=== PATIENT | female | born 1955 | race Caucasian/White ===

== ENCOUNTER 2016-12-28 05:45 | Inpatient (IN) | payer MEDICARE ==
[2016-12-28] MEDS ORDERED: SODIUM CHLORIDE 0.9% 1,000 ML IV STA ×3 (06:38→08:05)
[2016-12-28] MEDS ORDERED: IOHEXOL 350 MG/ML 25 ML BOTTLE (ORAL USE) PO PRN (06:38)
[2016-12-28] MEDS ORDERED: ONDANSETRON 4 MG/2 ML VIAL IVP STA (06:38)
[2016-12-28] MEDS ORDERED: RX INFO: IV CONTRAST WAS GIVEN 1 EACH MISC MISCELLANE PRN ×2 (06:38→07:59)
[2016-12-28] MEDS ORDERED: PANTOPRAZOLE 40 MG/10 ML VIAL IVP STA (06:38)
[2016-12-28] MEDS ORDERED: HYDROmorphone 1 MG/ML 1 ML SYRINGE IVP STA ×2 (06:38→11:33)
--- NOTE | 2016-12-28 06:42 | ED ---
Abdominal Pain HPI - General Source: patient, EMS Mode of arrival: EMS Limitations: no limitations <Alicia Beckman - Last Filed: 12/28/16 07:09> <Darrick Lewis - Last Filed: 12/28/16 09:52> - General Chief Complaint: Abdominal Pain Stated Complaint: Abdominal Pain/Vomiting Time Seen by Provider: 12/28/16 05:54 - History of Present Illness Initial Comments: Planing about the upper abdominal pain, this pain is starts in the right upper quadrant area goes to the epigastric and then the other side this is affecting the upper half of the abdomen is ago worse since one day now she has abdominal pain ongoing for about 3 years now had a fever had chills she been throwing up and had a hard time keeping anything down. She has a history of metastatic breast cancer she is on chemo right now. Denies any chest pain , c/o shortness of breath (Alicia Beckman) - Related Data Home Medications Medication Instructions Recorded Confirmed Diltiazem HCl [Cardizem Cd] 120 mg PO DAILY 03/25/15 12/28/16 Sertraline HCl [Zoloft] 100 mg PO DAILY 03/25/15 12/28/16 valACYclovir [Valtrex] 1 tab PO DAILY 03/25/15 12/28/16 Letrozole [Femara] 2.5 mg PO DAILY 12/28/16 12/28/16 Meloxicam [Mobic] 15 mg PO DAILY 12/28/16 12/28/16 Palbociclib [Ibrance] 100 mg PO DAILY 12/28/16 12/28/16 Simvastatin [Zocor] 10 mg PO HS 12/28/16 12/28/16 oxyCODONE HCL 10 mg PO Q6HR PRN 12/28/16 12/28/16 Allergies Allergy/AdvReac Type Severity Reaction Status Date / Time latex Allergy Rash/Hives Verified 12/28/16 07:50 Sulfa (Sulfonamide Allergy Rash/Hives Verified 12/28/16 07:50 Antibiotics) Review of Systems ROS Other: All systems not noted in ROS Statement are negative. <Alicia Beckman - Last Filed: 12/28/16 07:09> ROS Other: All systems not noted in ROS Statement are negative. <Darrick Lewis - Last Filed: 12/28/16 09:52> ROS Statement: Those systems with pertinent positive or pertinent negative responses have been documented in the HPI. 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 History of Any Multi-Drug Resistant Organisms: None Reported Past Surgical History: Orthopedic Surgery Additional Past Surgical History / Comment(s): gail placed left femur Past Psychological History: No Psychological Hx Reported Smoking Status: Former smoker Past Alcohol Use History: Rare Past Drug Use History: None Reported <Alicia Beckman - Last Filed: 12/28/16 07:09> General Exam Limitations: no limitations <Alicia Beckman - Last Filed: 12/28/16 07:09> <Darrick Lewis - Last Filed: 12/28/16 09:52> - General Exam Comments Initial Comments: General: The patient is awake and alert, in no distress, and does not appear acutely ill. Skin: Skin is warm and dry and no rashes or lesions are noted. Eye: Pupils are equal, round and reactive to light, extra-ocular movements are intact; there is normal conjunctiva bilaterally. Ears, nose, mouth and throat: There are moist mucous membranes and no oral lesions. Neck: The neck is supple, there is no tenderness or JVD. Cardiovascular: There is a regular rate and rhythm. No murmur, rub or gallop is appreciated. Respiratory: To auscultation bilateral, no wheezing no rhonchi no distress respiratory bain noticed Gastrointestinal: Tender in the right upper quadrant area, epigastric left upper quadrant areas well Back: There is no tenderness to palpation in the midline. There is no obvious deformity. Musculoskeletal: Normal ROM, no tenderness, There is no pedal edema. There is no calf tenderness or swelling. No cords were appreciated. Neurological: CN II-XII intact, Cranial nerves III through XII are intact. There are no obvious motor or sensory deficits. Coordination appears grossly intact. Speech is normal. Psychiatric: Cooperative, appropriate mood & affect, normal judgment. (Alicia Beckman) Course <Alicia Beckman - Last Filed: 12/28/16 07:09> <Darrick Lewis - Last Filed: 12/28/16 09:52> Vital Signs 06/08/17 06/08/17 06/08/17 05:47 07:21 08:47 Temperature 100.4 F H 99.9 F H Pulse Rate 109 H 131 H 126 H Respiratory 20 20 20 Rate Blood Pressure 163/67 145/67 110/64 O2 Sat by Pulse 99 96 96 Oximetry 12/28/16 12/28/16 09:27 09:48 Temperature 98 F Pulse Rate 117 H Respiratory 16 Rate Blood Pressure 94/55 O2 Sat by Pulse 94 L Oximetry - Reevaluation(s) Reevaluation #1: 12/28/16 08:36 Patient reevaluated by myself, Dr. Lewis. Patient resting comfortably in bed. Patient complains mostly of nausea at this time. Onset of symptoms was yesterday. Patient has had similar symptoms at least 5 or 6 times previously. Patient states abdominal discomfort was severe of the mid abdomen however now is mild. Nausea has improved. Patient states shortness of breath has always been mild. Patient states she has been evaluated for this several times and unable to come up with the diagnoses. Patient states her white blood cell count is normally low and 1.8 is normal for her. Patient is on 2 oral chemotherapy medications at this time. Patient does meet criteria for septic shock diagnosed at 8:36 AM. Fluid bolus has been ordered. Blood cultures and antibiotics has been ordered. Repeat lactic acid has been ordered. 12/28/16 08:38 EKG shows sinus tachycardia 119. MA 146. QRS 82. QT 436. QTc 486. Normal axis. Normal QRS. Normal ST-T. 12/28/16 09:45 Patient was updated on results and plan. Patient reevaluated. Case discussed in detail with Dr. Toledo, who will admit for hospital call. 12/28/16 09:51 Ultrasound gallbladder has been ordered. Dr. holloway and has been paged. Admission orders will be placed with additional consults. (Darrick Lewis) Procedures - Sepsis Sepsis Focused Exam #1 Time Sepsis Criteria Met: 08:36 Sepsis Focused Exam Date: 12/28/16 Sepsis Focused Exam Time: 08:36 Sepsis Focused Exam Complete: Yes Vital Signs & RN Notes Reviewed: Yes Capillary Refill: < 2 Seconds: Fingers, Toes Peripheral Pulses: Normal: Radial (R), Radial (L), Dorsalis Pedis (R), Dorsalis Pedis (L) Skin Color: Normal for Patient Respiratory Exam: normal lung sounds Cardiovascular Exam: tachycardia <Darrick Lewis - Last Filed: 12/28/16 09:52> Medical Decision Making - Lab Data Result diagrams: 12/28/16 06:00 12/28/16 06:00 - Radiology Data Radiology results: report reviewed (Computed tomography scan of the chest shows no pulmonary embolism. Patchy left basilar atelectasis or infiltrate. Computed tomography scan of the abdomen and pelvis shows hiatal hernia. Calcified density left breast. Had a hernia. Thickening of the gastric body. Dilation of the bile duct. May be wall thickening. No surrounding inflammation. Diffuse osteoblastic metastasis. Headache increased soft tissue density region of the kayleigh hepatis.), image reviewed (Chest x-ray shows left a slight atelectasis or infiltrate.) <Darrick Lewis - Last Filed: 12/28/16 09:52> - Lab Data Lab Results 12/28/16 12/28/16 12/28/16 Range/Units 06:00 06:00 06:00 WBC 1.2 L* (3.8-10.6) k/uL RBC 2.98 L (3.80-5.40) m/uL Hgb 11.0 L (11.4-16.0) gm/dL Hct 30.5 L (34.0-46.0) % MCV 102.2 H (80.0-100.0) fL MCH 37.0 H (25.0-35.0) pg MCHC 36.2 (31.0-37.0) g/dL RDW 15.2 (11.5-15.5) % Plt Count 155 (150-450) k/uL Neutrophils % 83 % Lymphocytes % 12 % Monocytes % 2 % Eosinophils % 1 % Basophils % 0 % Neutrophils # 1.0 L (1.3-7.7) k/uL Lymphocytes # 0.1 L (1.0-4.8) k/uL Monocytes # 0.0 (0-1.0) k/uL Eosinophils # 0.0 (0-0.7) k/uL Basophils # 0.0 (0-0.2) k/uL Hyperchromasia Slight Poikilocytosis Slight Macrocytosis Slight D-Dimer (<0.60) mg/L FEU Sodium 143 (137-145) mmol/L Potassium 4.0 (3.5-5.1) mmol/L Chloride 107 (98-107) mmol/L Carbon Dioxide 22 (22-30) mmol/L Anion Gap 14 mmol/L BUN 24 H (7-17) mg/dL Creatinine 1.38 H (0.52-1.04) mg/dL Est GFR (MDRD) Af Amer 47 (>60 ml/min/1.73 sqM) Est GFR (MDRD) Non-Af 39 (>60 ml/min/1.73 sqM) Glucose 193 H (74-99) mg/dL Plasma Lactic Acid Darvin 4.0 H* (0.7-2.0) mmol/L Calcium 9.4 (8.4-10.2) mg/dL Total Bilirubin 2.4 H (0.2-1.3) mg/dL AST 655 H (14-36) U/L ALT 369 H (9-52) U/L Alkaline Phosphatase 208 H (38-126) U/L Troponin I (0.000-0.034) ng/mL Total Protein 7.4 (6.3-8.2) g/dL Albumin 4.5 (3.5-5.0) g/dL Amylase 59 (30-110) U/L Lipase 86 (23-300) U/L Urine Color Urine Appearance (Clear) Urine pH (5.0-8.0) Ur Specific [place] (1.001-1.035) Urine Protein (Negative) Urine Glucose (UA) (Negative) Urine Ketones (Negative) Urine Blood (Negative) Urine Nitrite (Negative) Urine Bilirubin (Negative) Urine Urobilinogen (<2.0) mg/dL Ur Leukocyte Esterase (Negative) Urine RBC (0-5) /hpf Urine WBC (0-5) /hpf Ur Squamous Epith Cells (0-4) /hpf Urine Mucus (None) /hpf 12/28/16 12/28/16 12/28/16 Range/Units 06:00 06:00 06:07 WBC (3.8-10.6) k/uL RBC (3.80-5.40) m/uL Hgb (11.4-16.0) gm/dL Hct (34.0-46.0) % MCV (80.0-100.0) fL MCH (25.0-35.0) pg MCHC (31.0-37.0) g/dL RDW (11.5-15.5) % Plt Count (150-450) k/uL Neutrophils % % Lymphocytes % % Monocytes % % Eosinophils % % Basophils % % Neutrophils # (1.3-7.7) k/uL Lymphocytes # (1.0-4.8) k/uL Monocytes # (0-1.0) k/uL Eosinophils # (0-0.7) k/uL Basophils # (0-0.2) k/uL Hyperchromasia Poikilocytosis Macrocytosis D-Dimer 3.15 H (<0.60) mg/L FEU Sodium (137-145) mmol/L Potassium (3.5-5.1) mmol/L Chloride (98-107) mmol/L Carbon Dioxide (22-30) mmol/L Anion Gap mmol/L BUN (7-17) mg/dL Creatinine (0.52-1.04) mg/dL Est GFR (MDRD) Af Amer (>60 ml/min/1.73 sqM) Est GFR (MDRD) Non-Af (>60 ml/min/1.73 sqM) Glucose (74-99) mg/dL Plasma Lactic Acid Darvin (0.7-2.0) mmol/L Calcium (8.4-10.2) mg/dL Total Bilirubin (0.2-1.3) mg/dL AST (14-36) U/L ALT (9-52) U/L Alkaline Phosphatase (38-126) U/L Troponin I <0.012 (0.000-0.034) ng/mL Total Protein (6.3-8.2) g/dL Albumin (3.5-5.0) g/dL Amylase (30-110) U/L Lipase (23-300) U/L Urine Color Yellow Urine Appearance Clear (Clear) Urine pH 7.0 (5.0-8.0) Ur Specific [place] 1.011 (1.001-1.035) Urine Protein 1+ H (Negative) Urine Glucose (UA) 3+ H (Negative) Urine Ketones Negative (Negative) Urine Blood Negative (Negative) Urine Nitrite Negative (Negative) Urine Bilirubin Negative (Negative) Urine Urobilinogen <2.0 (<2.0) mg/dL Ur Leukocyte Esterase Moderate H (Negative) Urine RBC 2 (0-5) /hpf Urine WBC 16 H (0-5) /hpf Ur Squamous Epith Cells <1 (0-4) /hpf Urine Mucus Rare H (None) /hpf Critical Care Time Critical Care Time: Yes Total Critical Care Time: 31 <Darrick Lewis - Last Filed: 12/28/16 09:52> Disposition <Alicia Beckman - Last Filed: 12/28/16 07:09> Time of Disposition: 09:52 <Darrick Lewis - Last Filed: 12/28/16 09:52> Clinical Impression: Abdominal pain, Septic shock, Urinary tract infection, Pneumonia Disposition: ADMITTED IP TO THIS HOSP Condition: Serious Referrals: Gurdeep Bates DO [Primary Care Provider] - 1-2 days
[2016-12-28 07:15] LABS: Appearance,Urine Clear (Clear); Bilirubin,Urine Negative (Negative); Glucose,Urine (UA) 3+ (Negative); Ketones,Urine Negative (Negative); Leukocyte Esterase,Urine Moderate (Negative); Mucus,Urine Rare /hpf; Nitrite,Urine Negative (Negative); Particle Count 3782; Protein,Urine 1+ (Negative); RBC,Urine 2 /hpf (0-5); Specific Gravity,Urine 1.011 (1.001-1.035); Squamous Epithelial Cell,Urine <1 /hpf (0-4); UA Billing (MACRO vs. MICRO) MICRO; Urobilinogen,Urine <2.0 mg/dL (<2.0); WBC,Urine 16 /hpf (0-5)
[2016-12-28 07:23] LABS: Basophils % (A) 0 %; CH 37.8; CHCM 37.1; Calcium 9.4 mg/dL (8.4-10.2); Eosinophils % (A) 1 %; HCT 30.5 % (34.0-46.0); HDW 3.96; Hyperchromasia Slight; Luc # (Auto) 0.03; Luc % (Auto) 3; Lymphocytes # (A) 0.1 k/uL (1.0-4.8); Lymphocytes % (A) 12 %; MCHC 36.2 g/dL (31.0-37.0); MCV 102.2 fL (80.0-100.0); Macrocytosis Slight; Mean Platelet Volume 7.3; Monocytes % (A) 2 %; Neutrophils % (A) 83 %; Poikilocytosis Slight; RBC 2.98 m/uL (3.80-5.40); RDW 15.2 % (11.5-15.5); Total Bilirubin 2.4 mg/dL (0.2-1.3); Total Protein 7.4 g/dL (6.3-8.2); WBC (Perox) 1.32
[2016-12-28 07:30] LABS: WBC 1.2 k/uL (3.8-10.6)
[2016-12-28] MEDS ORDERED: SODIUM CHLORIDE 0.9% 250 ML IV STA (07:30)
[2016-12-28] MEDS ORDERED: PIPERACILLIN-TAZOBACTAM 3.375 GM in DEXTROSE/WATER 1 50ML.BAG IVPB STA (08:00)
[2016-12-28] MEDS ORDERED: ACETAMINOPHEN IV (For NPO) 1,000 MG in SALINE 1 100ML.BAG IVPB STA (08:04)
--- NOTE | 2016-12-28 08:24 | XR ---
EXAMINATION TYPE: XR chest 2V DATE OF EXAM: 12/28/2016 COMPARISON: Chest x-ray and CTA chest from March 26, 2015. HISTORY: Abdominal pain. TECHNIQUE: Frontal and lateral views of the chest are obtained. FINDINGS: There is redemonstration of right internal jugular Mediport catheter. There is patchy left basilar atelectasis and/or infiltrate. Right lung is clear. No pleural effusion or pneumothorax is se en bilaterally. The cardiac silhouette size is within normal limits. Sclerotic vertebra near thoracol umbar junction consistent with metastatic disease is seen better on CT. IMPRESSION: Patchy left basilar atelectasis and/or infiltrate.
--- NOTE | 2016-12-28 08:49 | CT ---
EXAMINATION TYPE: CT angio chest DATE OF EXAM: 12/28/2016 COMPARISON: 03/26/2015 HISTORY: 61-year-old female with shortness of breath, elevated d dimer. History of breast cancer. TECHNIQUE: Contiguous axial scanning of the chest performed with IV Contrast, patient injected with 8 0 mL of Visipaque 320. Coronal/sagittal MIP reconstructions performed. CT DLP: 1567.5 (CTA chest, CT abd pelvis) mGycm Automated exposure control for dose reduction was used. FINDINGS: There is abnormal soft tissue density in the subareolar left breast with partial calcifications. Some calcified and noncalcified left hilar lymph nodes are also noted measuring up to 9 mm, not signi ficantly changed from 03/26/2015. No new thoracic lymphadenopathy seen. A right anterior chest wall injection port is present with catheter tip at the cavoatrial junction. The heart is normal size without pericardial effusion. Aorta is normal caliber with conventional arch vessel branching anatomy. Satisfactory opacification of the pulmonary arterial system with some respiratory motion degrading th e exam causing heterogeneity of the pulmonary arteries. No definite pulmonary embolus allowing for th is limitation. There is prominent contrast column retained within the esophagus with a small to moderate-sized hiata l hernia. Evaluation of the lungs show some mild subpleural dependent atelectasis. There is some patchy opacity at the left base and strandy areas of atelectasis are suggested at the anterior right midlung. No pl eural effusion. Abdomen will be reported separately. Bones: Diffuse osteoblastic metastases redemonstrated. IMPRESSION: 1. MILD RESPIRATORY MOTION ARTIFACTS. NO DEFINITE PULMONARY EMBOLISM ALLOWING FOR THIS LIMITATION. 2. SOME INCREASED PATCHY ATELECTASIS OR DEVELOPING INFILTRATE AT THE LEFT BASE. CORRELATE WITH PATIEN T'S SYMPTOMS. 3. SMALL TO MODERATE SIZE HIATAL HERNIA WITH A PROMINENT CONTRAST COLUMN WITHIN THE ESOPHAGUS. CORREL ATE FOR SYMPTOMATIC GERD. 4. PARTIALLY CALCIFIED ABNORMAL DENSITY PERSISTS WITHIN THE LEFT BREAST COMPATIBLE WITH PATIENT'S HIS TORY OF BREAST CANCER. DIFFUSE OSSEOUS BLASTIC METASTASES REDEMONSTRATED.
--- NOTE | 2016-12-28 09:08 | CT ---
EXAMINATION TYPE: CT abdomen pelvis w con DATE OF EXAM: 12/28/2016 COMPARISON: CT chest 03/26/2015. HISTORY: 61-year-old female with umbilical pain, vomiting, history of breast CA TECHNIQUE: Contiguous axial scanning of the abdomen and pelvis following administration of 100 ml Omn ipaque 300 IV contrast. Delayed images through the kidneys and coronal/sagittal reconstructions perf ormed. CT DLP: 1567.5 (CTA chest, CT abd pelvis) mGycm Automated exposure control for dose reduction was used. FINDINGS: Redemonstrated small to moderate size hiatal hernia and a prominent contrast column within the esopha sanjana. There is some circumferential thickening and narrowing at the level of the mid gastric body which see ms to persist on the delayed kidney images. Scattered subcentimeter hypodensities within the liver, nonspecific, probable cysts. Dominant 3.3 cm cyst anterior hepatic dome stable from 03/26/2015. Gallbladder is distended but not abnormally high dropping. Questionable mild wall thickening, axial i mage 24. The bile duct is also mildly dilated at 7 mm, coronal image 36. No clear distal obstructing lesion is seen. There is some vague increased soft tissue density near the lyle hepatis, axial image 24 which can be reassessed in 3 months time. Possibly relating to crowded structures. Portal venous system is patent. Adrenal glands and kidneys within normal limits. Pancreas is atrophic. Spleen mildly enlarged at 14.0 cm. No mesenteric or retroperitoneal lymph adenopathy. No dilated small bowel, free fluid, or free air. Normal appendix. Scattered colonic diverticulosis without pericolonic inflammatory change. Bladder urine distended. Calcified fibroid uterus is suggested. No abnormal fluid collection in the p kapil or pelvic lymphadenopathy. Bones: Diffuse osteoblastic metastatic disease as seen in the chest. Intramedullary nailing with hip screw fixation left femur with prominent heterogeneity of the bone here. IMPRESSION: 1. SMALL TO MODERATE SIZED HIATAL HERNIA WITH CONTRAST COLUMN IN THE THORACIC ESOPHAGUS. CORRELATE FO R SEVERE GERD. 2. CIRCUMFERENTIAL THICKENING ALONG THE MID GASTRIC BODY PERSISTS ON DELAYED KIDNEY IMAGES. THIS MAY REFLECT SPASM. RECOMMEND DIRECT VISUALIZATION TO EXCLUDE NEOPLASM. 3. MILD DILATATION OF THE BILE DUCT. CORRELATE WITH ALKALINE PHOSPHATASE AND BILIRUBIN LEVELS. ALSO, THERE MAY BE MILD WALL THICKENING OF THE BLADDER. NO SURROUNDING INFLAMMATION OR HYDROPIC CHANGE TO S UPPORT ACUTE CHOLECYSTITIS BY CT. IF RIGHT UPPER QUADRANT PAIN AND CLINICALLY INDICATED, CONSIDER ULT RASOUND OR HIDA SCAN. 4. SOME VAGUE INCREASED SOFT TISSUE DENSITY IN THE REGION OF THE LYLE HEPATIS. THIS MAY BE SECONDARY TO CROWDED STRUCTURES. RECOMMEND 3 MONTH FOLLOW-UP CT TO REASSESS. 5. DIFFUSE OSTEOBLASTIC METASTASES.
[2016-12-28] MEDS ORDERED: PNEUMONIA PROTOCOL UTILIZED 1 EACH MISC PO PRN (09:52)
[2016-12-28] MEDS ORDERED: LEVOFLOXACIN 750MG-D5W PMX 750 MG in DEXTROSE/WATER 1 150ML.BAG IVPB STA (09:52)
[2016-12-28] MEDS ORDERED: IV VANCOMYCIN PER PHARMACY 1 EACH MISC MISCELLANE PRN (10:44)
[2016-12-28] MEDS: SODIUM CHLORIDE 0.9% 1,000 ML IV SCH ×2 (11:45→20:14)
[2016-12-28] MEDS: VANCOMYCIN 1,250 MG in SODIUM CHLORIDE 0.9% 250 ML IVPB SCH (11:47)
--- NOTE | 2016-12-28 14:18 | US ---
EXAMINATION TYPE: US gallbladder DATE OF EXAM: 12/28/2016 COMPARISON: CT abdomen and pelvis from earlier today CLINICAL HISTORY: Pain. abnormal CT EXAM MEASUREMENTS: Liver Length: 15.4 cm Gallbladder Wall: 0.4 cm CBD: 0.6 cm Right Kidney: 8.0 x 3.8 x 4.0 cm Pancreas: tail obscured by bowel gas Liver: 3.0cm cyst noted near hepatic dome Gallbladder: thickened wall with no other abnormality noted Evidence for sonographic Espinoza's sign: no CBD: wnl Right Kidney: smaller in size No shadowing mobile gallstones. Visualized portion of pancreas is unremarkable. Thin-walled 3 cm cyst hepatic dome is redemonstrated. Common bile duct is upper limits of normal. IMPRESSION: Minimal wall thickening of the gallbladder. No intraluminal shadowing mobile gallstones o r other secondary ultrasound evidence to suggest acute cholecystitis.
[2016-12-28] MEDS: FILGRASTIM-SNDZ 480 MCG/0.8 ML SYRINGE SQ SCH (15:06)
--- NOTE | 2016-12-28 16:20 | P.CNPUL ---
History of Present Illness Consult date: 12/28/16 Chief complaint: Sepsis History of present illness: 51-year-old female patient with known history of metastatic left breast cancer with skeletal involvement. The patient has been treated for an oncologist, Dr. Thurman of [facility]. She also sees Dr. Caldwell in the same institution as a radiation oncologist. The patient has been maintained on a combination Ibrance and Letrazole and she's been taking the treatment for the past several months. She presented to the emergency department because of epigastric/upper abdominal pain. Radiating sidewise along her lower chest border under her breast line. This was a dull ache that was rather continuous and affecting the upper half of the abdomen associated with some nausea. No emesis. No bright red blood per rectum. She was febrile in the emergency department he is currently she is afebrile hemodynamically stable. Denied having any chest pain. She was complaining of no shortness of breath. No change in mental status. For this reason the patient came into the emergency department she was found to be neutropenic and febrile. Her temperature was 100.4. Her pulse was as high as 131. Her BP was as low as 110/64. Her white cell count was 1.2. Her hemoglobin was 11.0 and her creatinine was 1.38. Based on this, the sepsis protocol was initiated. The patient's lactic acid was high as 4.0 and she was resuscitated IV fluids and her lactic acid subsequently dropped down to 2.0. Her liver function tests were abnormal. The bilirubin was at 2.4. She had an AST of 655 and an ALP of 369 and alkaline phosphatase of 208. Troponin was negative. The patient was started on broad-spectrum antibiotics and she was given a combination of Zosyn and vancomycin. The patient was also givenZarxio for her underlying neutropenia. She is already feeling better. Her pain has somewhat subsided. As part of her workup, a CAT scan of the chest was done that showed no evidence of any pulmonary embolism. There was some areas of patchy atelectasis in the left lung base. There was a small to moderate-sized hiatal hernia and prominent contrast column within the esophagus. There was a mass in her left breast and diffuse osteoblastic metastases demonstrated. The CAT scan of the abdomen and pelvis was done and showed a small to moderate- sized hiatal hernia again and there was circumferential thickening along the mid gastric body and this raises the suspicion for a gastric spasm versus tumor. Also there was mild dilatation of the bile duct and mild gallbladder wall thickening without any surrounding inflammation or high drop it changes to support acute cholecystitis. The patient also had some increased soft tissue density in the region of kayleigh hepatis. The ultrasound the gallbladder was also completed and there was minimal wall thickening of the gallbladder without any intraluminal shadowing or gallstones or evidence of acute cholecystitis. Review of Systems All systems: negative Constitutional: Denies chills, Denies fever Eyes: denies blurred vision, denies pain Ears, nose, mouth and throat: Denies headache, Denies sore throat Cardiovascular: Denies chest pain, Denies shortness of breath Respiratory: Denies cough Gastrointestinal: Denies abdominal pain, Denies diarrhea, Denies nausea, Denies vomiting Genitourinary: Denies dysuria, Denies hematuria Musculoskeletal: Denies myalgias Integumentary: Denies pruritus, Denies rash Neurological: Denies numbness, Denies weakness Psychiatric: Denies anxiety, Denies depression Endocrine: Denies fatigue, Denies weight change Past Medical History Past Medical History: Cancer, Hyperlipidemia, Pneumonia Additional Past Medical History / Comment(s): Metastatic breast cancer currently on a combination of Ibrance and Femera. The patient also has had pathologic fracture of the left femur requiring ORIF and she has also received radiation therapy to her lumbar spine and back and chest. 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 Vertigo. Tinnitus. Hyperlipidemia. History of Any Multi-Drug Resistant Organisms: None Reported Past Surgical History: Orthopedic Surgery, Tonsillectomy Additional Past Surgical History / Comment(s): gail placed left femur, colonoscopy, R side port. Past Anesthesia/Blood Transfusion Reactions: Postoperative Nausea & Vomiting ( PONV) Past Psychological History: Depression Additional Psychological History / Comment(s): Pt states zoloft helps her depression. She resides with her spouse and 2 dogs. She uses a cane to ambulate. She drives. Smoking Status: Former smoker Past Alcohol Use History: Rare Additional Past Alcohol Use History / Comment(s): Pt started smoking socially in 1971 and quit in 2005. Past Drug Use History: Marijuana Additional Drug Use History / Comment(s): Pt states she smokes medical marijuana on occasion for pain and nausea control. - Past Family History Mother Family Medical History: No Reported History Additional Family Medical History / Comment(s): Mother lived to be 91 yrs old. Father Family Medical History: COPD Additional Family Medical History / Comment(s): Father at the age of 83yrs. He had emphysema. He had worked in the automotive industry. Medications and Allergies Home Medications Medication Instructions Recorded Confirmed Type Diltiazem HCl [Cardizem Cd] 120 mg PO DAILY 03/25/15 12/28/16 History Sertraline HCl [Zoloft] 100 mg PO DAILY 03/25/15 12/28/16 History valACYclovir [Valtrex] 1 tab PO DAILY 03/25/15 12/28/16 History Letrozole [Femara] 2.5 mg PO DAILY 12/28/16 12/28/16 History Meloxicam [Mobic] 15 mg PO DAILY 12/28/16 12/28/16 History Palbociclib [Ibrance] 100 mg PO DAILY 12/28/16 12/28/16 History Simvastatin [Zocor] 10 mg PO HS 12/28/16 12/28/16 History oxyCODONE HCL 10 mg PO Q6HR PRN 12/28/16 12/28/16 History Allergies Allergy/AdvReac Type Severity Reaction Status Date / Time latex Allergy Rash/Hives Verified 12/28/16 07:50 Sulfa (Sulfonamide Allergy Rash/Hives Verified 12/28/16 07:50 Antibiotics) Physical Exam Vitals: Vital Signs Temp Pulse Pulse Resp BP BP Pulse Ox 12/28/16 12:20 18 12/28/16 10:42 99.2 F 125 H 18 102/50 97 12/28/16 10:16 91/50 12/28/16 09:48 98 F 12/28/16 09:27 117 H 16 94/55 94 L 12/28/16 08:47 126 H 20 110/64 96 12/28/16 07:21 99.9 F H 131 H 20 145/67 96 12/28/16 05:47 100.4 F H 109 H 20 163/67 99 Intake and Output 12/28/16 12/28/16 12/28/16 06:59 14:59 22:59 Intake Total 3749 Balance 3749 Intake: Amount of Fluid Infused ( 1000 ml) Intake, IV Titration 2749 Amount Piperacillin-Tazobactam 3 50 .375 gm In Dextrose/Water 1 50ml.bag @ 12.5 mls/hr IVPB ONCE [facility] Rx#: [id number] Sodium Chloride 0.9% 1, 800 000 ml @ 100 mls/hr IV . Q10H [facility] Rx#:[id number] Sodium Chloride 0.9% 1, 900 000 ml @ 999 mls/hr IV . Q1H1M [facility] Rx#:[id number] Sodium Chloride 0.9% 1, 999 000 ml @ 999 mls/hr IV . Q1H1M [facility] Rx#:[id number] Other: # Voids 2 Weight 74.843 kg The patient appeared well nourished and normally developed. Vital signs as documented. Head exam is unremarkable. No scleral icterus or corneal arcus noted. Neck is without jugular venous distension, thyromegaly, or carotid bruits. Carotid upstrokes are brisk bilaterally. Lungs are clear to auscultation and percussion. Cardiac exam reveals the PMI to be normally sized and situated. Rhythm is regular. First and second heart sounds normal. No murmurs, rubs or gallops. Abdominal exam reveals normal bowel sounds, no masses , no organomegaly and no aortic enlargement. Extremities are nonedematous and both femoral and pedal pulses are normal. Results - Laboratory Findings CBC and BMP: 12/28/16 06:00 12/28/16 06:00 PT/INR, D-dimer D-Dimer 3.15 mg/L FEU (<0.60) H 12/28/16 06:00 Abnormal lab findings: Abnormal Labs 12/28/16 12/28/16 12/28/16 06:00 06:00 06:00 WBC 1.2 L* RBC 2.98 L Hgb 11.0 L Hct 30.5 L MCV 102.2 H MCH 37.0 H Neutrophils # 1.0 L Lymphocytes # 0.1 L D-Dimer BUN 24 H Creatinine 1.38 H Glucose 193 H Plasma Lactic Acid Darvin 4.0 H* Total Bilirubin 2.4 H AST 655 H ALT 369 H Alkaline Phosphatase 208 H Urine Protein Urine Glucose (UA) Ur Leukocyte Esterase Urine WBC Urine Mucus 12/28/16 12/28/16 06:00 06:07 WBC RBC Hgb Hct MCV MCH Neutrophils # Lymphocytes # D-Dimer 3.15 H BUN Creatinine Glucose Plasma Lactic Acid Darvin Total Bilirubin AST ALT Alkaline Phosphatase Urine Protein 1+ H Urine Glucose (UA) 3+ H Ur Leukocyte Esterase Moderate H Urine WBC 16 H Urine Mucus Rare H - Diagnostic Findings CT scan - chest: image reviewed Assessment and Plan Plan: Assessment 1 neutropenic sepsis on that investigation. Cultures of been sent and the patient was started on broad-spectrum antibiotics. Noted the patient had lactic acidosis the time of admission and is improving. Patient is neutropenic and febrile. Hemodynamically stable. 2 fever, improved 3 neutropenia 4 metastatic breast cancer currently on a combination of Ibrance and Femera. The patient has had previous skeletal metastases and previous pathologic fracture of the left femur requiring ORIF and she has received also addition therapy to her back. 5 gallbladder wall thickening without evidence of any acute cholecystitis 6 abnormal LFTs currently under investigation 7 acute kidney injury, rule out secondary to above. 8 thickening of the gastric wall and the level of mid gastric body, rule out gastric spasm versus neoplasm 9 moderate size hiatal hernia 10 hyperlipidemia 11 hypertension Plan Continue fluid resuscitation. The patient is receiving IV fluids at the rate of 100 mL an hour normal saline. Continue Zosyn and vancomycin and Levaquin. Continue Zarxio and monitor the white cell count and cultures. Monitor liver function test. Obtain hepatitis profile. May need a surgical consultation regards to the gallbladder abnormalities and possibility of an underlying cholecystitis. Clinically however the patient does not have any signs of acute cholecystitis and this point. Also made an EGD at a later stage in regards to the findings of the CAT scan of the abdomen in terms of the gastric body findings. We'll continue to follow.
[2016-12-28] MEDS: DILTIAZEM CD 120 MG CAP.ER.24H PO SCH (16:46)
[2016-12-28] MEDS: PIPERACILLIN-TAZOBACTAM 3.375 GM in DEXTROSE/WATER 1 50ML.BAG IVPB SCH ×2 (16:47→23:14)
[2016-12-28] MEDS ORDERED: ASPIRIN 325 MG TAB PO STA (18:45)
[2016-12-28] MEDS ORDERED: IBUPROFEN 400 MG TAB PO PRN (23:32)
[2016-12-29] MEDS ORDERED: LEVOFLOXACIN 750MG-D5W PMX 750 MG in DEXTROSE/WATER 1 150ML.BAG IVPB SCH (06:00)
[2016-12-29] MEDS: SODIUM CHLORIDE 0.9% 1,000 ML IV SCH ×2 (06:24→17:10)
[2016-12-29 06:34] LABS: Basophils % (A) 1 %; CH 36.8; CHCM 33.8; Eosinophils % (A) 1 %; HCT 24.9 % (34.0-46.0); HDW 3.65; Luc # (Auto) 0.03; Luc % (Auto) 1; Lymphocytes # (A) 0.1 k/uL (1.0-4.8); Lymphocytes % (A) 5 %; MCH 35.9 pg (25.0-35.0); MCHC 32.8 g/dL (31.0-37.0); Macrocytosis Marked; Mean Platelet Volume 7.4; Monocytes % (A) 2 %; Neutrophils % (A) 91 %; Poikilocytosis Slight; RBC 2.27 m/uL (3.80-5.40); RDW 15.7 % (11.5-15.5); WBC 2.2 k/uL (3.8-10.6); WBC (Perox) 2.43
[2016-12-29 06:41] LABS: ALT 578 U/L (9-52); AST 453 U/L (14-36); Alkaline Phosphatase 154 U/L (38-126); Anion Gap 12 mmol/L; Blood Urea Nitrogen 17 mg/dL (7-17); Calcium 7.8 mg/dL (8.4-10.2); Carbon Dioxide 19 mmol/L (22-30); Chloride 115 mmol/L (98-107); Glucose 85 mg/dL (74-99); Non-African American GFR(MDRD) 47 (>60 ml/min/1.73 sqM); Potassium 3.5 mmol/L (3.5-5.1); Sodium 146 mmol/L (137-145); Total Protein 5.3 g/dL (6.3-8.2)
--- NOTE | 2016-12-29 06:58 | XR ---
EXAMINATION TYPE: XR chest 2V DATE OF EXAM: 12/29/2016 HISTORY: pneumonia. REFERENCE: Previous study dated 12/28/2016. FINDINGS: A MediPort is in place on the right. Its tip is in the superior vena cava. Aeration at the left lung base is improved. Right lung is clear. Pleural spaces are clear. The heart is not enlarged. IMPRESSION: IMPROVED AERATION, LEFT LUNG BASE.
[2016-12-29 07:05] LABS: HGB 8.2 gm/dL (11.4-16.0); MCV 109.5 fL (80.0-100.0)
[2016-12-29 07:09] LABS: Hepatitis B Surface Ag Index 0.06
[2016-12-29 07:15] LABS: Hepatitis B Core IgM Index 0.01
[2016-12-29 07:27] LABS: Hepatitis C Virus IgG Ab Negative (Negative); Hepatitis C Virus IgG Index 0.02
--- NOTE | 2016-12-29 08:57 | HP ---
DATE OF ADMISSION: REASON FOR ADMISSION: Intractable nausea and vomiting. This is a 61-year-old female who states she is undergoing chemotherapy with Ibrance and letrozole with metastatic left breast cancer with spots in her left femur and her spine. Patient underwent radiation therapy in the past. Patient has had a recurrent episode of this symptom where patient starts to suddenly have intractable nausea, vomiting and thereafter has diffuse abdominal pain with associated diarrhea. Patient states that she is in good health until about 2 p.m. the day prior to admission. Patient states that she takes all her medications about half hour prior to the onset of symptoms. Patient states that she continues to have some epigastric pain at this time. Received a dose of Dilaudid prior to my evaluation though. Patient states that she has had another episode in the past about a few months ago on Mother's Day similarly around after a meal later in the evening. On initial evaluation in the emergency room, patient's lactic acid was about 4, was noted to have abnormal laboratory data including AST 655, ALT 369 and alk phos of 208. A CT scan of the abdomen did show some abnormalities including hiatal hernia and diffuse thickening in the esophageal wall. Patient at the time of my evaluation states that she is feeling slightly better, however, just received a dose of Dilaudid prior to my evaluation. No fevers, chills, nausea, vomiting, headaches, abdominal pain reported at time of my evaluation. Past medical history includes breast CA with metastatic disease, dyslipidemia, orthopedic surgery, tonsillectomy, left femur replacement from metastatic lesion, previous radiation therapy, colonoscopy, port placement on the right subclavian vein. SOCIAL HISTORY: Uses marijuana. Previous history of tobacco use. No alcohol use. Medications include: 1. Cardizem. 2. Zoloft. 3. Valtrex. 4. Femara. 5. Mobic. 6. Ibrance. 7. Zocor. 8. Oxycodone. Those were reviewed and appropriately reconciled. ALLERGIES: LATEX and SULFA. VITALS: Temperature is 99.2, heart rate 117, respiratory rate ( ) and saturating 99% on room air. Blood 91 to 163 over 50 to 67 diastolic. GENERAL APPEARANCE: Alert, oriented x3. NECK: Supple. No JVD. LUNGS: Good air movement. Clear to auscultation. HEART: S1, S2 heard. Slightly tachycardic. No murmurs appreciated. ABDOMEN: Soft. Some tenderness in the right upper quadrant and epigastric area. No focal areas of tenderness in the lower abdomen. No jaundice noted. NEURO: No focal motor or sensory deficits noted. No lower extremity ( ) appreciated. Cranial nerves 2 through 12 grossly intact. LABORATORY DATA: Hemoglobin 11, hematocrit of 30, white count 1.2, platelets 155. Sodium 143, potassium 4, chloride 107, bicarb 22, BUN 24, creatinine of 1.38. ASSESSMENT: 1. Sepsis in a patient with neutropenia that is moderate. 2. Metastatic breast cancer, currently maintained on Ibrance and letrozole, status post radiation therapy. 3. Acute hepatitis. 4. Acute kidney injury, likely secondary to dehydration from sepsis. 5. Epigastric pain likely due to either pill esophagitis or some extension of the cancer. 6. Moderate size hiatal hernia. 7. Hypertension. PLAN: Continue ongoing care including Zarxio, empiric antibiotic therapy for neutropenic fevers. Will obtain a GI consultation. May benefit from having an endoscopy. Patient's symptoms are closely related to her taking pills. If pill esophagitis is not suspected then potential for a biopsy if patient appears to have some extension of her cancer. CT scans were reviewed. Will follow.
[2016-12-29] MEDS: PIPERACILLIN-TAZOBACTAM 3.375 GM in DEXTROSE/WATER 1 50ML.BAG IVPB SCH ×3 (09:42→23:20)
[2016-12-29] MEDS: FILGRASTIM-SNDZ 480 MCG/0.8 ML SYRINGE SQ SCH (09:42)
[2016-12-29] MEDS: DILTIAZEM CD 120 MG CAP.ER.24H PO SCH (09:46)
[2016-12-29] MEDS: VANCOMYCIN 1,250 MG in SODIUM CHLORIDE 0.9% 250 ML IVPB SCH (09:53)
--- NOTE | 2016-12-29 10:28 | P.CONS ---
History of Present Illness - Reason for Consult Consult date: 12/29/16 pill esophagitis Requesting physician: Bertram Nix - History of Present Illness 61-year-old female with a history metastatic breast cancer 2014 maintained on Ibrance and Femara with skeletal/spine involvement requiring ORIF/IM nailing left femur followed by oncologist and PCP at [facility], chronic epigastric pain nausea vomiting for at least 3 years duration, hyperlipidemia, depression. He should admitted with neutropenic sepsis and gram-negative bacteremia. Consultation requested for possible pill esophagitis. Upon exam patient is visibly jaundiced with elevated transaminases. Patient reports chronic epigastric pain of 3 years duration with intermittent nausea vomiting without bleeding. Symptoms sometimes are exacerbated with taking her oral medications. To her knowledge patient has never been jaundice or been told recent liver enzymes are elevated. Admission white count 1.2 currently 2.2. Hemoglobin 8.2. MCV 109. Platelet 113. D-dimer 3.1. Total bilirubin 2.4-4.0. AST 453-655. ALT 369-578. Alkaline phosphatase 154- 208. Hepatitis panel negative. INR not obtained. CT abdomen and pelvis small to moderate hiatal hernia Suellen for severe GERD. Circumferential thickening along the midgastric body may reflect spasm direct visualization to exclude neoplasm. Mild dilation of common bile duct 7 mm. No clear distal obstructing lesions seen. Mild wall thickening of the gallbladder without surrounding inflammation or hydropic changes. Vague density soft tissue in the region of the kayleigh hepatis. Diffuse osteoblastic metastasis. Chest CT: No definite pulmonary embolism. Patchy atelectasis left base possible infiltrate. [id number] hiatal hernia. Diffuse osteoblastic metastasis redemonstrated. Gallbladder ultrasound minimal wall thickening. CBD within normal limits 6 mm. 3 cm cyst hepatic dome. No intraluminal shadowing mobile gallstones. Review of Systems Constitutional: Denies fever, chills, sweats, weight gain, or loss. HEENT: Negative for migraines, blurred vision or loss, earaches, drainage, tinnitus, oral mucosal lesions, dysphagia, or odynophagia. CARDIAC: Hyperlipidemia. Negative for chest pain, arrhythmias, or palpitation. RESPIRATORY: Negative for shortness of breath, hemoptysis, cough, or sputum production. GI: See HPI for pertinent findings. : Negative for hematuria, urgency, frequency, polyuria, or dysuria. GYNc: Metastatic breast cancer with skeletal metastasis. Negative vaginal discharge. MUSCULOSKELETAL: Negative for muscle aches, swelling, arthritis, and arthralgias. NEUROLOGIC: Negative for stroke or TIA. ENDOCRINE: Negative for thyroid problems. SKIN: Negative for rash or itching. PSYCHIATRIC: History of depression. Denies anxiety. All systems: negative (See HPI) Past Medical History Past Medical History: Cancer, Hyperlipidemia, Pneumonia Additional Past Medical History / Comment(s): Metastatic breast cancer currently on a combination of Ibrance and Femera. The patient also has had pathologic fracture of the left femur requiring ORIF and she has also received radiation therapy to her lumbar spine and back and chest. 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 Vertigo. Tinnitus. Hyperlipidemia. History of Any Multi-Drug Resistant Organisms: None Reported Past Surgical History: Orthopedic Surgery, Tonsillectomy Additional Past Surgical History / Comment(s): gail placed left femur, colonoscopy, R side port. Past Anesthesia/Blood Transfusion Reactions: Postoperative Nausea & Vomiting ( PONV) Past Psychological History: Depression Additional Psychological History / Comment(s): Pt states zoloft helps her depression. She resides with her spouse and 2 dogs. She uses a cane to ambulate. She drives. Smoking Status: Former smoker Past Alcohol Use History: Rare Additional Past Alcohol Use History / Comment(s): Pt started smoking socially in 1971 and quit in 2005. Past Drug Use History: Marijuana Additional Drug Use History / Comment(s): Pt states she smokes medical marijuana on occasion for pain and nausea control. - Past Family History Mother Family Medical History: No Reported History Additional Family Medical History / Comment(s): Mother lived to be 91 yrs old. Father Family Medical History: COPD Additional Family Medical History / Comment(s): Father at the age of 83yrs. He had emphysema. He had worked in the automotive industry. Medications and Allergies Home Medications Medication Instructions Recorded Confirmed Type Diltiazem HCl [Cardizem Cd] 120 mg PO DAILY 03/25/15 12/28/16 History Sertraline HCl [Zoloft] 100 mg PO DAILY 03/25/15 12/28/16 History valACYclovir [Valtrex] 1 tab PO DAILY 03/25/15 12/28/16 History Letrozole [Femara] 2.5 mg PO DAILY 12/28/16 12/28/16 History Meloxicam [Mobic] 15 mg PO DAILY 12/28/16 12/28/16 History Palbociclib [Ibrance] 100 mg PO DAILY 12/28/16 12/28/16 History Simvastatin [Zocor] 10 mg PO HS 12/28/16 12/28/16 History oxyCODONE HCL 10 mg PO Q6HR PRN 12/28/16 12/28/16 History Allergies Allergy/AdvReac Type Severity Reaction Status Date / Time latex Allergy Rash/Hives Verified 12/28/16 07:50 Sulfa (Sulfonamide Allergy Rash/Hives Verified 12/28/16 07:50 Antibiotics) Physical Exam Vitals: Vital Signs Temp Pulse Resp BP BP Pulse Ox 12/29/16 09:15 98 12/29/16 04:00 97.7 F 93 16 90/54 98 12/29/16 00:00 99.7 F H 102 H 16 96/59 97 12/28/16 20:00 97.3 F L 100 16 90/52 97 12/28/16 16:00 99.0 F 117 H 18 99/56 96 12/28/16 12:20 18 12/28/16 10:42 99.2 F 125 H 18 102/50 97 Intake and Output 12/28/16 12/29/16 12/29/16 22:59 06:59 14:59 Intake Total 1100 850 Balance 1100 850 Intake: IV 100 800 Sodium Chloride 0.9% 1, 100 800 000 ml @ 100 mls/hr IV . Q10H [facility] Rx#:[id number] Intake, IV Titration 1000 50 Amount Levofloxacin 750Mg-D5w 150 Pmx 750 mg In Dextrose/ Water 1 150ml.bag @ 100 mls/hr IVPB Q48H [facility] Rx#: [id number] Piperacillin-Tazobactam 3 50 50 .375 gm In Dextrose/Water 1 50ml.bag @ 12.5 mls/hr IVPB ONCE [facility] Rx#: [id number] Sodium Chloride 0.9% 1, 800 000 ml @ 100 mls/hr IV . Q10H [facility] Rx#:[id number] Other: Voiding Method Toilet Toilet # Voids 1 2 Weight 76.1 kg General appearance: The patient is alert, oriented, in no acute distress. Visibly jaundice. HET: Head is normocephalic and atraumatic. Pupils are equal and reactive. Sclerae icterus. Oropharynx is clear without lesions. Neck: Supple without lymphadenopathy. Trachea midline. Heart: S1 S2. Regular rate and rhythm. Lungs: No crackles or wheezes are heard. Abdomen: Soft, very mild midepigastric right upper quadrant tenderness, nondistended with bowel sounds. No peritoneal signs. No palpable organomegaly or masses. Extremities: Normal skin color and turgor. No cyanosis, rash, ulceration, clubbing, or edema. Radial and pedal pulses are 2/4 bilaterally. Neurological: No focal deficits. Strength and sensation are grossly intact. Results CBC & Chem 7: 12/29/16 06:04 12/29/16 06:04 Labs: Abnormal Lab Results - Last 24 Hours (Table) 12/29/16 12/29/16 Range/Units 06:04 06:04 WBC 2.2 L (3.8-10.6) k/uL RBC 2.27 L (3.80-5.40) m/uL Hgb 8.2 L D (11.4-16.0) gm/dL Hct 24.9 L (34.0-46.0) % MCV 109.5 H D (80.0-100.0) fL MCH 35.9 H (25.0-35.0) pg RDW 15.7 H (11.5-15.5) % Plt Count 113 L (150-450) k/uL Sodium 146 H (137-145) mmol/L Chloride 115 H (98-107) mmol/L Carbon Dioxide 19 L (22-30) mmol/L Creatinine 1.17 H (0.52-1.04) mg/dL Calcium 7.8 L (8.4-10.2) mg/dL Total Bilirubin 4.0 H (0.2-1.3) mg/dL AST 453 H (14-36) U/L ALT 578 H (9-52) U/L Alkaline Phosphatase 154 H (38-126) U/L Total Protein 5.3 L (6.3-8.2) g/dL Albumin 2.9 L (3.5-5.0) g/dL Lipase 12 L (23-300) U/L Microbiology - Last 24 Hours (Table) 12/28/16 08:16 Blood Culture - Final Blood 12/28/16 06:00 Blood Culture - Final Blood 12/28/16 06:00 Blood Culture Gram Stain - Preliminary Blood Blood Culture - Preliminary Gram Neg Bacilli 12/28/16 08:16 Blood Culture Gram Stain - Preliminary Blood 12/28/16 06:07 Urine Culture - Preliminary Urine,Voided CT scan - abdomen: report reviewed (Dr. Garza) CT scan - chest: report reviewed (Dr. Garza) CT scan - pelvis: report reviewed (Dr. Garza) US - abdomen: report reviewed (Dr. Garza) Assessment and Plan (1) Jaundice Status: Acute (2) Elevated liver enzymes Status: Acute (3) Epigastric pain Status: Chronic (4) Nausea & vomiting Status: Chronic (5) Metastatic breast cancer Narrative/Plan: Skeletal metastasis Status: Acute (6) Gram-negative bacteremia Status: Acute (7) Sepsis Status: Acute Plan: 1. MRCP ; investigate jaundice and r/o intra versus extrahepatic causes correlate with recent CT abdomen. Consideration for ERCP based on MRCP findings. 2. Plans to proceed with EGD 2-3 days after review of MRCP secondary to gastric findings on CT. 3. AFP/CEA. 4. Oncology evaluation. 5. Will follow closely with you. Repeat liver enzymes in a.m. Will obtain PT/ INR. Thank you for this kind referral and the opportunity to participate in the care of your patient. This consultation was discussed with Dr. Garza. The impression and plan of care have been directed as dictated.
[2016-12-29 10:34] LABS: Manual Review Performed
[2016-12-29 11:52] VITALS: BMI 29.7
--- NOTE | 2016-12-29 12:12 | P.PN ---
Subjective 51-year-old female patient with known history of metastatic left breast cancer with skeletal involvement. The patient has been treated for an oncologist, Dr. Thurman of [facility]. She also sees Dr. Caldwell in the same institution as a radiation oncologist. The patient has been maintained on a combination Ibrance and Letrazole and she's been taking the treatment for the past several months. She presented to the emergency department because of epigastric/upper abdominal pain. Radiating sidewise along her lower chest border under her breast line. This was a dull ache that was rather continuous and affecting the upper half of the abdomen associated with some nausea. No emesis. No bright red blood per rectum. She was febrile in the emergency department he is currently she is afebrile hemodynamically stable. Denied having any chest pain. She was complaining of no shortness of breath. No change in mental status. For this reason the patient came into the emergency department she was found to be neutropenic and febrile. Her temperature was 100.4. Her pulse was as high as 131. Her BP was as low as 110/64. Her white cell count was 1.2. Her hemoglobin was 11.0 and her creatinine was 1.38. Based on this, the sepsis protocol was initiated. The patient's lactic acid was high as 4.0 and she was resuscitated IV fluids and her lactic acid subsequently dropped down to 2.0. Her liver function tests were abnormal. The bilirubin was at 2.4. She had an AST of 655 and an ALP of 369 and alkaline phosphatase of 208. Troponin was negative. The patient was started on broad-spectrum antibiotics and she was given a combination of Zosyn and vancomycin. The patient was also givenZarxio for her underlying neutropenia. She is already feeling better. Her pain has somewhat subsided. As part of her workup, a CAT scan of the chest was done that showed no evidence of any pulmonary embolism. There was some areas of patchy atelectasis in the left lung base. There was a small to moderate-sized hiatal hernia and prominent contrast column within the esophagus. There was a mass in her left breast and diffuse osteoblastic metastases demonstrated. The CAT scan of the abdomen and pelvis was done and showed a small to moderate- sized hiatal hernia again and there was circumferential thickening along the mid gastric body and this raises the suspicion for a gastric spasm versus tumor. Also there was mild dilatation of the bile duct and mild gallbladder wall thickening without any surrounding inflammation or high drop it changes to support acute cholecystitis. The patient also had some increased soft tissue density in the region of kayleigh hepatis. The ultrasound the gallbladder was also completed and there was minimal wall thickening of the gallbladder without any intraluminal shadowing or gallstones or evidence of acute cholecystitis. The patient was seen again today 12/29/2016 in follow-up on the selective care unit. She is awake and alert in no acute distress. Her abdominal discomfort is residing somewhat she still has some elements of nausea. Her blood cultures are positive for gram-negative bacilli. White count 2.2. Hemoglobin 8.2. Bicarb 19. Liver enzymes remain elevated. Hepatitis screen is negative. Gastroenterology and surgical services on the case as well. Objective - Vital Signs Vital signs: Vital Signs Temp 97.7 F 12/29/16 04:00 Pulse 93 12/29/16 04:00 Resp 16 12/29/16 04:00 BP 90/54 12/29/16 04:00 Pulse Ox 98 12/29/16 09:15 Intake & Output 12/28/16 12/29/16 12/29/16 18:59 06:59 18:59 Intake Total 4699 1000 Balance 4699 1000 Weight 76.1 kg 76.1 kg Intake: IV 900 Sodium Chloride 0.9% 1, 900 000 ml @ 100 mls/hr IV . Q10H [facility] Rx#:[id number] Amount of Fluid Infused ( 1000 ml) Intake, IV Titration 3699 100 Amount Levofloxacin 750Mg-D5w 150 Pmx 750 mg In Dextrose/ Water 1 150ml.bag @ 100 mls/hr IVPB Q48H [facility] Rx#: [id number] Piperacillin-Tazobactam 3 50 100 .375 gm In Dextrose/Water 1 50ml.bag @ 12.5 mls/hr IVPB ONCE [facility] Rx#: [id number] Sodium Chloride 0.9% 1, 800 000 ml @ 100 mls/hr IV . Q10H [facility] Rx#:[id number] Sodium Chloride 0.9% 1, 800 000 ml @ 100 mls/hr IV . Q10H [facility] Rx#:[id number] Sodium Chloride 0.9% 1, 900 000 ml @ 999 mls/hr IV . Q1H1M [facility] Rx#:[id number] Sodium Chloride 0.9% 1, 999 000 ml @ 999 mls/hr IV . Q1H1M [facility] Rx#:[id number] Other: Voiding Method Toilet # Voids 2 2 - Exam GENERAL EXAM: Alert, active, comfortable in no apparent distress. HEAD: Normocephalic. EYES: Normal reaction of pupils, equal size. NOSE: Clear with pink turbinates. THROAT: No erythema or exudates. NECK: No masses, no JVD. CHEST: No chest wall deformity. LUNGS: Equal air entry with no crackles, wheeze, rhonchi or dullness. CVS: S1 and S2 normal with no audible murmurs, regular rhythm. ABDOMEN: No hepatosplenomegaly, normal bowel sounds, no guarding or rigidity. SPINE: No scoliosis or deformity SKIN: No rashes CENTRAL NERVOUS SYSTEM: No focal deficits, tone is normal in all 4 extremities. Extremities: There is no peripheral edema. No clubbing no cyanosis peripheral pulses are intact. - Labs CBC & Chem 7: 12/29/16 06:04 12/29/16 06:04 Labs: Abnormal Lab Results - Last 24 Hours (Table) 12/29/16 12/29/16 Range/Units 06:04 06:04 WBC 2.2 L (3.8-10.6) k/uL RBC 2.27 L (3.80-5.40) m/uL Hgb 8.2 L D (11.4-16.0) gm/dL Hct 24.9 L (34.0-46.0) % MCV 109.5 H D (80.0-100.0) fL MCH 35.9 H (25.0-35.0) pg RDW 15.7 H (11.5-15.5) % Plt Count 113 L (150-450) k/uL Lymphocytes # 0.1 L (1.0-4.8) k/uL Sodium 146 H (137-145) mmol/L Chloride 115 H (98-107) mmol/L Carbon Dioxide 19 L (22-30) mmol/L Creatinine 1.17 H (0.52-1.04) mg/dL Calcium 7.8 L (8.4-10.2) mg/dL Total Bilirubin 4.0 H (0.2-1.3) mg/dL AST 453 H (14-36) U/L ALT 578 H (9-52) U/L Alkaline Phosphatase 154 H (38-126) U/L Total Protein 5.3 L (6.3-8.2) g/dL Albumin 2.9 L (3.5-5.0) g/dL Lipase 12 L (23-300) U/L Microbiology - Last 24 Hours (Table) 12/28/16 08:16 Blood Culture Gram Stain - Preliminary Blood Blood Culture - Preliminary Gram Neg Bacilli 12/28/16 08:16 Blood Culture - Final Blood 12/28/16 06:00 Blood Culture - Final Blood 12/28/16 06:00 Blood Culture Gram Stain - Preliminary Blood Blood Culture - Preliminary Gram Neg Bacilli 12/28/16 06:07 Urine Culture - Preliminary Urine,Voided Assessment and Plan Plan: Assessment 1 neutropenic sepsis on that investigation. Cultures of been sent and the patient was started on broad-spectrum antibiotics. Noted the patient had lactic acidosis the time of admission and is improving. Patient is neutropenic and febrile. Hemodynamically stable. 2 fever, improved 3 neutropenia 4 metastatic breast cancer currently on a combination of Ibrance and Femera. The patient has had previous skeletal metastases and previous pathologic fracture of the left femur requiring ORIF and she has received also addition therapy to her back. 5 gallbladder wall thickening without evidence of any acute cholecystitis 6 abnormal LFTs currently under investigation 7 acute kidney injury, rule out secondary to above. 8 thickening of the gastric wall and the level of mid gastric body, rule out gastric spasm versus neoplasm 9 moderate size hiatal hernia 10 hyperlipidemia 11 hypertension Plan The patient was seen and evaluated by Dr. Gutiérrez. Her blood cultures were noted. GI and surgical services are both on the case as well. She is currently stable from the pulmonary standpoint. She is getting slightly acidotic. Liver enzymes remain elevated. Will await further recommendations from the consultants. We'll continue to follow.
[2016-12-29] MEDS ORDERED: DOCUSATE 100 MG CAP PO SCH (14:30)
[2016-12-29 15:02] LABS: Bilirubin, Delta 1.5 mg/dL (0.0-0.2); Total Bilirubin 3.8 mg/dL (0.2-1.3)
[2016-12-29] MEDS ORDERED: POLYETHYLENE GLYCOL 3350 17 GM POWD.PACK PO STA (15:09)
[2016-12-29] MEDS ORDERED: DOCUSATE 100 MG CAP PO PRN (15:10)
--- NOTE | 2016-12-29 15:55 | P.CONS ---
History of Present Illness - Reason for Consult Consult date: 12/29/16 metastatic breat cancer, on treatment Requesting physician: Darrick Lewis - Chief Complaint abd pain, vomiting - History of Present Illness Mrs. Mitchell is a very pleasant female pt of Dr. Thurman and Dr. Caldwell at [facility]. She has been on treatment for metastatic breast cancer with oral palbociclib and letrazole since diagnosis just over a year ago , she has bone mets that have been treated with radiation therapy, she has also had ORIF and nailing of the left femur. Patient does receive monthly bisphosphonate therapy. She states that over the last year she is now had 4 "episodes" similar to her current presentation. About one week ago she started having a decreased appetite, by she began having epigastric/abdominal pain associated with vomiting. Patient states chills and "cold sweats" during these episodes. Patient notices all such episodes have happened after eating foods that are spicy or fatty. Her last episode was around Mother's Day, both her and her feel that she never quite recovered after that episode. Patient states that about 3 weeks ago when she was receiving her Zometa treatment she was told her liver enzymes were elevated, she followed up a week later and she was told that they were back down to normal levels. When seen today patient states is actually feeling quite well, she is eating ice cream. She states tolerating treatment very well, her white blood cell count is typically in the 2-3 range, only mild anemia and thrombocytopenia, she is on a reduced dose of Ibrance (100mg QD, days 1-21 every 28 days). She denies any current chills or sweats, no oral irritation, nausea, cough, abdominal pain, she has a feeling of fullness in the epigastric area, not pain, no dysuria or hematuria, has constipation but, that is rather chronic, no hemorrhoids or painful bowel movements, hematochezia or melena. She is fully ambulatory, requires no assistance. Review of Systems All systems: negative Constitutional: Reports as per HPI Past Medical History Past Medical History: Cancer, Hyperlipidemia, Pneumonia Additional Past Medical History / Comment(s): Metastatic breast cancer currently on a combination of Ibrance and Femera. The patient also has had pathologic fracture of the left femur requiring ORIF and she has also received radiation therapy to her lumbar spine and back and chest. 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 Vertigo. Tinnitus. Hyperlipidemia. History of Any Multi-Drug Resistant Organisms: None Reported Past Surgical History: Orthopedic Surgery, Tonsillectomy Additional Past Surgical History / Comment(s): gail placed left femur, colonoscopy, R side port. Past Anesthesia/Blood Transfusion Reactions: Postoperative Nausea & Vomiting ( PONV) Past Psychological History: Depression Additional Psychological History / Comment(s): Pt states zoloft helps her depression. She resides with her spouse and 2 dogs. She uses a cane to ambulate. She drives. Smoking Status: Former smoker Past Alcohol Use History: Rare Additional Past Alcohol Use History / Comment(s): Pt started smoking socially in 1971 and quit in 2005. Past Drug Use History: Marijuana Additional Drug Use History / Comment(s): Pt states she smokes medical marijuana on occasion for pain and nausea control. - Past Family History Mother Family Medical History: No Reported History Additional Family Medical History / Comment(s): Mother lived to be 91 yrs old. Father Family Medical History: COPD Additional Family Medical History / Comment(s): Father at the age of 83yrs. He had emphysema. He had worked in the automotive industry. Medications and Allergies Home Medications Medication Instructions Recorded Confirmed Type Diltiazem HCl [Cardizem Cd] 120 mg PO DAILY 03/25/15 12/28/16 History Sertraline HCl [Zoloft] 100 mg PO DAILY 03/25/15 12/28/16 History valACYclovir [Valtrex] 1 tab PO DAILY 03/25/15 12/28/16 History Letrozole [Femara] 2.5 mg PO DAILY 12/28/16 12/28/16 History Meloxicam [Mobic] 15 mg PO DAILY 12/28/16 12/28/16 History Palbociclib [Ibrance] 100 mg PO DAILY 12/28/16 12/28/16 History Simvastatin [Zocor] 10 mg PO HS 12/28/16 12/28/16 History oxyCODONE HCL 10 mg PO Q6HR PRN 12/28/16 12/28/16 History Allergies Allergy/AdvReac Type Severity Reaction Status Date / Time latex Allergy Rash/Hives Verified 12/28/16 07:50 Sulfa (Sulfonamide Allergy Rash/Hives Verified 12/28/16 07:50 Antibiotics) Physical Exam Vitals: Vital Signs Temp Pulse Resp BP BP Pulse Ox 12/29/16 12:00 98.4 F 96 18 88/69 97 12/29/16 09:15 98 12/29/16 08:45 98.0 F 115 H 18 126/60 100 12/29/16 04:00 97.7 F 93 16 90/54 98 12/29/16 00:00 99.7 F H 102 H 16 96/59 97 12/28/16 20:00 97.3 F L 100 16 90/52 97 12/28/16 16:00 99.0 F 117 H 18 99/56 96 Intake and Output 12/29/16 12/29/16 12/29/16 06:59 14:59 22:59 Intake Total 850 50 Balance 850 50 Intake: IV 800 Sodium Chloride 0.9% 1, 800 000 ml @ 100 mls/hr IV . Q10H [facility] Rx#:[id number] Intake, IV Titration 50 50 Amount Piperacillin-Tazobactam 3 50 .375 gm In Dextrose/Water 1 50ml.bag @ 12.5 mls/hr IVPB ONCE [facility] Rx#: [id number] Piperacillin-Tazobactam 3 50 .375 gm In Dextrose/Water 1 50ml.bag @ 12.5 mls/hr IVPB Q8HR [facility] Rx#: [id number] Other: Voiding Method Toilet Toilet # Voids 2 1 Weight 76.1 kg 76.1 kg Patient Weight 12/30/16 06:59 Weight 76.1 kg - Constitutional General appearance: average body habitus, cooperative, no acute distress - EENT Eyes: EOMI, scleral icterus ENT: hearing grossly normal, normal oropharynx - Neck Neck: no lymphadenopathy - Respiratory Respiratory: right: CTA, left: wheezing (lower lobe) - Cardiovascular Rhythm: regular Heart sounds: normal: S1, S2 Abnormal Heart Sounds: no systolic murmur, no diastolic murmur, no rub, no S3 Gallop, no S4 Gallop, no click, no other leg Peripheral Edema: bilateral: Trace - Gastrointestinal General gastrointestinal: no absent bowel sounds, no decreased bowel sounds, no distended, no hepatomegaly, no hyperactive bowel sounds, normal bowel sounds, no organomegaly, no rigid, no scaphoid, soft, no splenomegaly, tenderness, no umbilical hernia, no ventral hernia Localized gastrointestinal: tender: epigastric periumbilical (mild) - Integumentary Integumentary: jaundiced, normal turgor - Neurologic Neurologic: CNII-XII intact - Musculoskeletal Musculoskeletal: strength equal bilaterally - Psychiatric Psychiatric: A&O x's 3, appropriate affect, intact judgment & insight Results CBC & Chem 7: 12/29/16 06:04 12/29/16 06:04 Labs: Abnormal Lab Results - Last 24 Hours (Table) 12/29/16 12/29/16 12/29/16 Range/Units 06:04 06:04 06:07 WBC 2.2 L (3.8-10.6) k/uL RBC 2.27 L (3.80-5.40) m/uL Hgb 8.2 L D (11.4-16.0) gm/dL Hct 24.9 L (34.0-46.0) % MCV 109.5 H D (80.0-100.0) fL MCH 35.9 H (25.0-35.0) pg RDW 15.7 H (11.5-15.5) % Plt Count 113 L (150-450) k/uL Lymphocytes # 0.1 L (1.0-4.8) k/uL Sodium 146 H (137-145) mmol/L Chloride 115 H (98-107) mmol/L Carbon Dioxide 19 L (22-30) mmol/L Creatinine 1.17 H (0.52-1.04) mg/dL Calcium 7.8 L (8.4-10.2) mg/dL Total Bilirubin 4.0 H 3.8 H (0.2-1.3) mg/dL Conjugated Bilirubin 1.1 H (0.0-0.3) mg/dL Unconjugated Bilirubin 1.2 H (0.0-1.1) mg/dL Delta Bilirubin 1.5 H (0.0-0.2) mg/dL AST 453 H (14-36) U/L ALT 578 H (9-52) U/L Alkaline Phosphatase 154 H (38-126) U/L Total Protein 5.3 L (6.3-8.2) g/dL Albumin 2.9 L (3.5-5.0) g/dL Lipase 12 L (23-300) U/L Microbiology - Last 24 Hours (Table) 12/28/16 06:07 Urine Culture - Final Urine,Voided 12/28/16 08:16 Blood Culture Gram Stain - Preliminary Blood Blood Culture - Preliminary Gram Neg Bacilli 12/28/16 08:16 Blood Culture - Final Blood 12/28/16 06:00 Blood Culture - Final Blood 12/28/16 06:00 Blood Culture Gram Stain - Preliminary Blood Blood Culture - Preliminary Gram Neg Bacilli Chest x-ray: report reviewed CT scan - abdomen: report reviewed CT scan - chest: report reviewed CT scan - pelvis: report reviewed US - abdomen: report reviewed Assessment and Plan (1) Febrile neutropenia Narrative/Plan: UA suspicious, culture pending. Blood cultures positive for Gram neg bacilli, culture pending. Pt is on empiric antibiotics, zarxio has been started for chemo induced neutropenia. Hold Ibrance. Status: Acute (2) Antineoplastic chemotherapy induced pancytopenia Narrative/Plan: Monitor Hgb, no transfusion today Cont Zarxio Monitor platelets, no transfusion today GI ordered PT/INR, no anticoagulation until resulted, pt may be auto anticoagulated from live dysfunction Status: Acute (3) Elevated liver enzymes Narrative/Plan: GI note reviewed, agree with plan of care. Pt has no known liver mets and CT does not suggest liver mets. Concern is for choleycysitits or gastric metastatic disease. We will await GI work up, Surgery has also been consulted. Status: Acute (4) Metastatic breast cancer Narrative/Plan: Pt has been on Palbociclib and letrazole for over a year, zometa for bone mets. She will hold Palbociclib until reevaluated by Dr. Thurman, she can continue letrazole, zometa will resume in the outpatient setting. Status: Chronic
--- NOTE | 2016-12-29 16:43 | P.GSCN ---
History of Present Illness Consult date: 12/29/16 Reason for Consult: abdominal pain History of present illness: patient hospitalized with epigastric pain. She has had episodes like this intermittently over the last 2-3 years. She has a history of metastatic breast cancer with numerous bony metastasis. She is being maintained on oral chemotherapy agents currently. Her pain is now resolved. She says that she has had several abdominal ultrasounds in the past were normal. A CAT scan done during this admission revealed some inflammatory changes of the gallbladder and the kayleigh hepatis. Slight dilation of the bile duct was also described. Her liver enzymes were elevated. She was also found have gram-negative bacteremia. Review of Systems The patient denies any acute changes in his vision or hearing, no dysphagia or odynophagia, no chest pain or shortness of breath, no dysuria or hematuria, no headache, no runny nose, no rectal bleeding or melena, no unexplained weight loss Past Medical History Past Medical History: Cancer, Hyperlipidemia, Pneumonia Additional Past Medical History / Comment(s): Metastatic breast cancer currently on a combination of Ibrance and Femera. The patient also has had pathologic fracture of the left femur requiring ORIF and she has also received radiation therapy to her lumbar spine and back and chest. 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 Vertigo. Tinnitus. Hyperlipidemia. History of Any Multi-Drug Resistant Organisms: None Reported Past Surgical History: Orthopedic Surgery, Tonsillectomy Additional Past Surgical History / Comment(s): gail placed left femur, colonoscopy, R side port. Past Anesthesia/Blood Transfusion Reactions: Postoperative Nausea & Vomiting ( PONV) Past Psychological History: Depression Additional Psychological History / Comment(s): Pt states zoloft helps her depression. She resides with her spouse and 2 dogs. She uses a cane to ambulate. She drives. Smoking Status: Former smoker Past Alcohol Use History: Rare Additional Past Alcohol Use History / Comment(s): Pt started smoking socially in 1971 and quit in 2005. Past Drug Use History: Marijuana Additional Drug Use History / Comment(s): Pt states she smokes medical marijuana on occasion for pain and nausea control. - Past Family History Mother Family Medical History: No Reported History Additional Family Medical History / Comment(s): Mother lived to be 91 yrs old. Father Family Medical History: COPD Additional Family Medical History / Comment(s): Father at the age of 83yrs. He had emphysema. He had worked in the automotive industry. Medications and Allergies Home Medications Medication Instructions Recorded Confirmed Type Diltiazem HCl [Cardizem Cd] 120 mg PO DAILY 03/25/15 12/28/16 History Sertraline HCl [Zoloft] 100 mg PO DAILY 03/25/15 12/28/16 History valACYclovir [Valtrex] 1 tab PO DAILY 03/25/15 12/28/16 History Letrozole [Femara] 2.5 mg PO DAILY 12/28/16 12/28/16 History Meloxicam [Mobic] 15 mg PO DAILY 12/28/16 12/28/16 History Palbociclib [Ibrance] 100 mg PO DAILY 12/28/16 12/28/16 History Simvastatin [Zocor] 10 mg PO HS 12/28/16 12/28/16 History oxyCODONE HCL 10 mg PO Q6HR PRN 12/28/16 12/28/16 History Allergies Allergy/AdvReac Type Severity Reaction Status Date / Time latex Allergy Rash/Hives Verified 12/28/16 07:50 Sulfa (Sulfonamide Allergy Rash/Hives Verified 12/28/16 07:50 Antibiotics) Surgical - Exam Vital Signs Temp Pulse Resp BP Pulse Ox 100.4 F H 109 H 20 163/67 99 12/28/16 05:47 12/28/16 05:47 12/28/16 05:47 12/28/16 05:47 12/28/16 05:47 Physical exam: General: Well-developed, well-nourished HEENT: Normocephalic, sclerae nonicteric Abdomen: Minimal epigastric tenderness, nondistended Extremities: No edema Neuro: Alert and oriented Results - Labs 12/29/16 06:04 12/29/16 06:04 Abnormal Lab Results - Last 24 Hours (Table) 12/29/16 12/29/16 12/29/16 Range/Units 06:04 06:04 06:07 WBC 2.2 L (3.8-10.6) k/uL RBC 2.27 L (3.80-5.40) m/uL Hgb 8.2 L D (11.4-16.0) gm/dL Hct 24.9 L (34.0-46.0) % MCV 109.5 H D (80.0-100.0) fL MCH 35.9 H (25.0-35.0) pg RDW 15.7 H (11.5-15.5) % Plt Count 113 L (150-450) k/uL Lymphocytes # 0.1 L (1.0-4.8) k/uL Sodium 146 H (137-145) mmol/L Chloride 115 H (98-107) mmol/L Carbon Dioxide 19 L (22-30) mmol/L Creatinine 1.17 H (0.52-1.04) mg/dL Calcium 7.8 L (8.4-10.2) mg/dL Total Bilirubin 4.0 H 3.8 H (0.2-1.3) mg/dL Conjugated Bilirubin 1.1 H (0.0-0.3) mg/dL Unconjugated Bilirubin 1.2 H (0.0-1.1) mg/dL Delta Bilirubin 1.5 H (0.0-0.2) mg/dL AST 453 H (14-36) U/L ALT 578 H (9-52) U/L Alkaline Phosphatase 154 H (38-126) U/L Total Protein 5.3 L (6.3-8.2) g/dL Albumin 2.9 L (3.5-5.0) g/dL Lipase 12 L (23-300) U/L Microbiology - Last 24 Hours (Table) 12/28/16 06:07 Urine Culture - Final Urine,Voided 12/28/16 08:16 Blood Culture Gram Stain - Preliminary Blood Blood Culture - Preliminary Gram Neg Bacilli 12/28/16 08:16 Blood Culture - Final Blood 12/28/16 06:00 Blood Culture - Final Blood 12/28/16 06:00 Blood Culture Gram Stain - Preliminary Blood Blood Culture - Preliminary Gram Neg Bacilli Diabetes panel 12/29/16 Range/Units 06:04 Sodium 146 H (137-145) mmol/L Potassium 3.5 (3.5-5.1) mmol/L Chloride 115 H (98-107) mmol/L Carbon Dioxide 19 L (22-30) mmol/L BUN 17 (7-17) mg/dL Creatinine 1.17 H (0.52-1.04) mg/dL Glucose 85 (74-99) mg/dL Calcium 7.8 L (8.4-10.2) mg/dL AST 453 H (14-36) U/L ALT 578 H (9-52) U/L Alkaline Phosphatase 154 H (38-126) U/L Total Protein 5.3 L (6.3-8.2) g/dL Albumin 2.9 L (3.5-5.0) g/dL Calcium panel 12/29/16 Range/Units 06:04 Calcium 7.8 L (8.4-10.2) mg/dL Albumin 2.9 L (3.5-5.0) g/dL Pituitary panel 12/29/16 Range/Units 06:04 Sodium 146 H (137-145) mmol/L Potassium 3.5 (3.5-5.1) mmol/L Chloride 115 H (98-107) mmol/L Carbon Dioxide 19 L (22-30) mmol/L BUN 17 (7-17) mg/dL Creatinine 1.17 H (0.52-1.04) mg/dL Glucose 85 (74-99) mg/dL Calcium 7.8 L (8.4-10.2) mg/dL Adrenal panel 12/29/16 12/29/16 Range/Units 06:04 06:07 Sodium 146 H (137-145) mmol/L Potassium 3.5 (3.5-5.1) mmol/L Chloride 115 H (98-107) mmol/L Carbon Dioxide 19 L (22-30) mmol/L BUN 17 (7-17) mg/dL Creatinine 1.17 H (0.52-1.04) mg/dL Glucose 85 (74-99) mg/dL Calcium 7.8 L (8.4-10.2) mg/dL Total Bilirubin 4.0 H 3.8 H (0.2-1.3) mg/dL AST 453 H (14-36) U/L ALT 578 H (9-52) U/L Alkaline Phosphatase 154 H (38-126) U/L Total Protein 5.3 L (6.3-8.2) g/dL Albumin 2.9 L (3.5-5.0) g/dL Assessment and Plan (1) Abdominal pain Narrative/Plan: Agree with plans for MRCP to better evaluate the kayleigh hepatis. Would be concerned about the possibility of underlying metastatic disease contributingg to this patient's symptoms. Upper endoscopy for the gastric wall thickening seen on CAT scan also indicated. We will follow with you but at this time no immediate plans for surgical intervention. Status: Acute
--- NOTE | 2016-12-29 17:20 | P.PN ---
Subjective DATE OF ADMISSION: REASON FOR ADMISSION: Intractable nausea and vomiting. This is a 61-year-old female who states she is undergoing chemotherapy with Ibrance and letrozole with metastatic left breast cancer with spots in her left femur and her spine. Patient underwent radiation therapy in the past. Patient has had a recurrent episode of this symptom where patient starts to suddenly have intractable nausea, vomiting and thereafter has diffuse abdominal pain with associated diarrhea. Patient states that she is in good health until about 2 p.m. the day prior to admission. Patient states that she takes all her medications about half hour prior to the onset of symptoms. Patient states that she continues to have some epigastric pain at this time. Received a dose of Dilaudid prior to my evaluation though. Patient states that she has had another episode in the past about a few months ago on Mother's Day similarly around after a meal later in the evening. On initial evaluation in the emergency room, patient's lactic acid was about 4, was noted to have abnormal laboratory data including AST 655, ALT 369 and alk phos of 208. A CT scan of the abdomen did show some abnormalities including hiatal hernia and diffuse thickening in the esophageal wall. Patient at the time of my evaluation states that she is feeling slightly better, however, just received a dose of Dilaudid prior to my evaluation. No fevers, chills, nausea, vomiting, headaches, abdominal pain reported at time of my evaluation. 12/29/16 doing slightly better Tolerating oral intake no chest pain, abdominal pain , nausea, vomiting, diarrhea Physcial exam GENERAL APPEARANCE: Alert, oriented x3. NECK: Supple. No JVD. LUNGS: Good air movement. Clear to auscultation. HEART: S1, S2 heard. Slightly tachycardic. No murmurs appreciated. ABDOMEN: Soft. Some tenderness in the right upper quadrant and epigastric area. No focal areas of tenderness in the lower abdomen. No jaundice noted. NEURO: No focal motor or sensory deficits noted. No lower extremity edema noted Cranial nerves 2 through 12 grossly intact. Objective - Vital Signs Vital signs: Vital Signs Temp 97.0 F L 12/29/16 15:59 Pulse 91 12/29/16 15:59 Resp 18 12/29/16 15:59 BP 114/60 12/29/16 15:59 Pulse Ox 98 12/29/16 15:59 Intake & Output 0612/29/16 12/29/16 18:59 06:59 18:59 Intake Total 4699 1000 50 Balance 4699 1000 50 Weight 76.1 kg 76.1 kg Intake: IV 900 Sodium Chloride 0.9% 1, 900 000 ml @ 100 mls/hr IV . Q10H [facility] Rx#:[id number] Amount of Fluid Infused ( 1000 ml) Intake, IV Titration 3699 100 50 Amount Levofloxacin 750Mg-D5w 150 Pmx 750 mg In Dextrose/ Water 1 150ml.bag @ 100 mls/hr IVPB Q48H [facility] Rx#: [id number] Piperacillin-Tazobactam 3 50 100 .375 gm In Dextrose/Water 1 50ml.bag @ 12.5 mls/hr IVPB ONCE [facility]A Rx#: [id number] Piperacillin-Tazobactam 3 50 .375 gm In Dextrose/Water 1 50ml.bag @ 12.5 mls/hr IVPB Q8HR [facility] Rx#: [id number] Sodium Chloride 0.9% 1, 800 000 ml @ 100 mls/hr IV . Q10H [facility] Rx#:[id number] Sodium Chloride 0.9% 1, 800 000 ml @ 100 mls/hr IV . Q10H [facility] Rx#:[id number] Sodium Chloride 0.9% 1, 900 000 ml @ 999 mls/hr IV . Q1H1M [facility] Rx#:[id number] Sodium Chloride 0.9% 1, 999 000 ml @ 999 mls/hr IV . Q1H1M [facility] Rx#:[id number] Other: Voiding Method Toilet Toilet # Voids 2 2 1 - Labs CBC & Chem 7: 12/29/16 06:04 12/29/16 06:04 Labs: Abnormal Lab Results - Last 24 Hours (Table) 12/29/16 12/29/16 12/29/16 Range/Units 06:04 06:04 06:07 WBC 2.2 L (3.8-10.6) k/uL RBC 2.27 L (3.80-5.40) m/uL Hgb 8.2 L D (11.4-16.0) gm/dL Hct 24.9 L (34.0-46.0) % MCV 109.5 H D (80.0-100.0) fL MCH 35.9 H (25.0-35.0) pg RDW 15.7 H (11.5-15.5) % Plt Count 113 L (150-450) k/uL Lymphocytes # 0.1 L (1.0-4.8) k/uL Sodium 146 H (137-145) mmol/L Chloride 115 H (98-107) mmol/L Carbon Dioxide 19 L (22-30) mmol/L Creatinine 1.17 H (0.52-1.04) mg/dL Calcium 7.8 L (8.4-10.2) mg/dL Total Bilirubin 4.0 H 3.8 H (0.2-1.3) mg/dL Conjugated Bilirubin 1.1 H (0.0-0.3) mg/dL Unconjugated Bilirubin 1.2 H (0.0-1.1) mg/dL Delta Bilirubin 1.5 H (0.0-0.2) mg/dL AST 453 H (14-36) U/L ALT 578 H (9-52) U/L Alkaline Phosphatase 154 H (38-126) U/L Total Protein 5.3 L (6.3-8.2) g/dL Albumin 2.9 L (3.5-5.0) g/dL Lipase 12 L (23-300) U/L Microbiology - Last 24 Hours (Table) 12/28/16 06:07 Urine Culture - Final Urine,Voided 12/28/16 08:16 Blood Culture Gram Stain - Preliminary Blood Blood Culture - Preliminary Gram Neg Bacilli 12/28/16 08:16 Blood Culture - Final Blood 12/28/16 06:00 Blood Culture - Final Blood 12/28/16 06:00 Blood Culture Gram Stain - Preliminary Blood Blood Culture - Preliminary Gram Neg Bacilli Assessment and Plan Plan: ASSESSMENT: 1. Sepsis in a patient with neutropenia that is moderate. 2. Metastatic breast cancer, currently maintained on Ibrance and letrozole, status post radiation therapy. 3. Acute hepatitis. 4. Acute kidney injury, likely secondary to dehydration from sepsis. 5. Epigastric pain likely due to either pill esophagitis or some extension of the cancer. 6. Moderate size hiatal hernia. 7. Hypertension. PLAN: Continue ongoing care including Zarxio, empiric antibiotic therapy for neutropenic fevers. Will obtain a GI consultation. May benefit from having an endoscopy. acute hepatitis with bilirubinemia which is mixed. No concern for obstruction liver etiologies need to evaluated could be DILI, which are trending down, alk phos is likely chonically elevated with metastatic bone lesion if stable after EGD, pt could be discharged on levaquin as pt is able to tolerate diet and afebrile at this time
[2016-12-29 22:57] VITALS: RESP 16
[2016-12-29] MEDS ORDERED: MEROPENEM 1 GM in SODIUM CHLORIDE 0.9% 100 ML IVPB SCH (23:00)
[2016-12-29] MEDS: MELATONIN 5 MG TABLET PO SCH (23:16)
[2016-12-30] MEDS: MEROPENEM 1 GM in SODIUM CHLORIDE 0.9% 100 ML IVPB SCH ×4 (00:36→23:18)
[2016-12-30] MEDS: SODIUM CHLORIDE 0.9% 1,000 ML IV SCH ×3 (04:01→23:18)
[2016-12-30 06:21] LABS: INR 1.3 (<1.1)
[2016-12-30 06:39] LABS: ALT 382 U/L (9-52); AST 133 U/L (14-36); Alkaline Phosphatase 151 U/L (38-126); Anion Gap 10 mmol/L; Blood Urea Nitrogen 10 mg/dL (7-17); Calcium 8.3 mg/dL (8.4-10.2); Carbon Dioxide 19 mmol/L (22-30); Chloride 117 mmol/L (98-107); Glucose 112 mg/dL (74-99); Non-African American GFR(MDRD) 52 (>60 ml/min/1.73 sqM); Potassium 3.4 mmol/L (3.5-5.1); Sodium 146 mmol/L (137-145); Total Bilirubin 1.6 mg/dL (0.2-1.3); Total Protein 5.5 g/dL (6.3-8.2)
[2016-12-30] MEDS: LETROZOLE 2.5 MG TAB PO SCH (08:25)
[2016-12-30] MEDS: POLYETHYLENE GLYCOL 3350 17 GM POWD.PACK PO SCH (08:25)
[2016-12-30] MEDS: DILTIAZEM CD 120 MG CAP.ER.24H PO SCH (08:25)
[2016-12-30] MEDS: FILGRASTIM-SNDZ 480 MCG/0.8 ML SYRINGE SQ SCH (09:44)
--- NOTE | 2016-12-30 09:48 | P.PN ---
Subjective Principal diagnosis: Suspected cholangitis Patient's liver enzymes are trending downwards. She has no pain. She still feels fatigued. She is afebrile. Objective - Vital Signs Vital signs: Vital Signs Temp 97.8 F 12/30/16 04:00 Pulse 98 12/30/16 04:00 Resp 16 12/30/16 04:00 BP 127/59 12/30/16 04:00 Pulse Ox 98 12/30/16 04:00 Intake & Output 12/29/16 12/30/16 12/30/16 18:59 06:59 18:59 Intake Total 560 500 Output Total 1350 Balance -790 500 Weight 76.1 kg 77.5 kg Intake: IV 500 Sodium Chloride 0.9% 1, 500 000 ml @ 100 mls/hr IV . Q10H [facility] Rx#:[id number] Intake, IV Titration 50 Amount Piperacillin-Tazobactam 3 50 .375 gm In Dextrose/Water 1 50ml.bag @ 12.5 mls/hr IVPB Q8HR [facility] Rx#: [id number] Oral 510 Output: Urine 1350 Other: Voiding Method Toilet Toilet # Voids 1 2 - Exam Abdomen: Soft, nontender, nondistended - Labs CBC & Chem 7: 12/29/16 06:04 12/30/16 05:52 Labs: Abnormal Lab Results - Last 24 Hours (Table) 12/29/16 12/29/16 12/30/16 Range/Units 06:04 06:07 05:52 WBC 2.2 L (3.8-10.6) k/uL RBC 2.27 L (3.80-5.40) m/uL Hgb 8.2 L D (11.4-16.0) gm/dL Hct 24.9 L (34.0-46.0) % MCV 109.5 H D (80.0-100.0) fL MCH 35.9 H (25.0-35.0) pg RDW 15.7 H (11.5-15.5) % Plt Count 113 L (150-450) k/uL Lymphocytes # 0.1 L (1.0-4.8) k/uL PT 13.0 H (9.0-12.0) sec Sodium (137-145) mmol/L Potassium (3.5-5.1) mmol/L Chloride (98-107) mmol/L Carbon Dioxide (22-30) mmol/L Creatinine (0.52-1.04) mg/dL Glucose (74-99) mg/dL Calcium (8.4-10.2) mg/dL Total Bilirubin 3.8 H (0.2-1.3) mg/dL Conjugated Bilirubin 1.1 H (0.0-0.3) mg/dL Unconjugated Bilirubin 1.2 H (0.0-1.1) mg/dL Delta Bilirubin 1.5 H (0.0-0.2) mg/dL AST (14-36) U/L ALT (9-52) U/L Alkaline Phosphatase (38-126) U/L Total Protein (6.3-8.2) g/dL Albumin (3.5-5.0) g/dL 12/30/16 Range/Units 05:52 WBC (3.8-10.6) k/uL RBC (3.80-5.40) m/uL Hgb (11.4-16.0) gm/dL Hct (34.0-46.0) % MCV (80.0-100.0) fL MCH (25.0-35.0) pg RDW (11.5-15.5) % Plt Count (150-450) k/uL Lymphocytes # (1.0-4.8) k/uL PT (9.0-12.0) sec Sodium 146 H (137-145) mmol/L Potassium 3.4 L (3.5-5.1) mmol/L Chloride 117 H (98-107) mmol/L Carbon Dioxide 19 L (22-30) mmol/L Creatinine 1.07 H (0.52-1.04) mg/dL Glucose 112 H (74-99) mg/dL Calcium 8.3 L (8.4-10.2) mg/dL Total Bilirubin 1.6 H (0.2-1.3) mg/dL Conjugated Bilirubin (0.0-0.3) mg/dL Unconjugated Bilirubin (0.0-1.1) mg/dL Delta Bilirubin (0.0-0.2) mg/dL AST 133 H (14-36) U/L ALT 382 H (9-52) U/L Alkaline Phosphatase 151 H (38-126) U/L Total Protein 5.5 L (6.3-8.2) g/dL Albumin 2.9 L (3.5-5.0) g/dL Microbiology - Last 24 Hours (Table) 12/28/16 06:00 Blood Culture Gram Stain - Final Blood Blood Culture - Final Escherichia coli 12/28/16 06:07 Urine Culture - Final Urine,Voided 12/28/16 08:16 Blood Culture Gram Stain - Preliminary Blood Blood Culture - Preliminary Gram Neg Bacilli 12/28/16 08:16 Blood Culture - Final Blood 12/28/16 06:00 Blood Culture - Final Blood Assessment and Plan (1) Abdominal pain Narrative/Plan: Continue IV antibiotics. Repeat lab work tomorrow. Would consider outpatient MRCP or ERCP per GI. Status: Acute
[2016-12-30] MEDS ORDERED: LEVOFLOXACIN 750MG-D5W PMX 750 MG in DEXTROSE/WATER 1 150ML.BAG IVPB SCH (12:00)
--- NOTE | 2016-12-30 12:47 | P.PN ---
Subjective 51-year-old female patient with known history of metastatic left breast cancer with skeletal involvement. The patient has been treated for an oncologist, Dr. Thurman of [facility]. She also sees Dr. Caldwell in the same institution as a radiation oncologist. The patient has been maintained on a combination Ibrance and Letrazole and she's been taking the treatment for the past several months. She presented to the emergency department because of epigastric/upper abdominal pain. Radiating sidewise along her lower chest border under her breast line. This was a dull ache that was rather continuous and affecting the upper half of the abdomen associated with some nausea. No emesis. No bright red blood per rectum. She was febrile in the emergency department he is currently she is afebrile hemodynamically stable. Denied having any chest pain. She was complaining of no shortness of breath. No change in mental status. For this reason the patient came into the emergency department she was found to be neutropenic and febrile. Her temperature was 100.4. Her pulse was as high as 131. Her BP was as low as 110/64. Her white cell count was 1.2. Her hemoglobin was 11.0 and her creatinine was 1.38. Based on this, the sepsis protocol was initiated. The patient's lactic acid was high as 4.0 and she was resuscitated IV fluids and her lactic acid subsequently dropped down to 2.0. Her liver function tests were abnormal. The bilirubin was at 2.4. She had an AST of 655 and an ALP of 369 and alkaline phosphatase of 208. Troponin was negative. The patient was started on broad-spectrum antibiotics and she was given a combination of Zosyn and vancomycin. The patient was also givenZarxio for her underlying neutropenia. She is already feeling better. Her pain has somewhat subsided. As part of her workup, a CAT scan of the chest was done that showed no evidence of any pulmonary embolism. There was some areas of patchy atelectasis in the left lung base. There was a small to moderate-sized hiatal hernia and prominent contrast column within the esophagus. There was a mass in her left breast and diffuse osteoblastic metastases demonstrated. The CAT scan of the abdomen and pelvis was done and showed a small to moderate- sized hiatal hernia again and there was circumferential thickening along the mid gastric body and this raises the suspicion for a gastric spasm versus tumor. Also there was mild dilatation of the bile duct and mild gallbladder wall thickening without any surrounding inflammation or high drop it changes to support acute cholecystitis. The patient also had some increased soft tissue density in the region of kayleigh hepatis. The ultrasound the gallbladder was also completed and there was minimal wall thickening of the gallbladder without any intraluminal shadowing or gallstones or evidence of acute cholecystitis. The patient was seen again today 12/29/2016 in follow-up on the selective care unit. She is awake and alert in no acute distress. Her abdominal discomfort is residing somewhat she still has some elements of nausea. Her blood cultures are positive for gram-negative bacilli. White count 2.2. Hemoglobin 8.2. Bicarb 19. Liver enzymes remain elevated. Hepatitis screen is negative. Gastroenterology and surgical services on the case as well. The patient is seen again today 12/30/2016 in follow-up on the selective care unit. He is awake and alert in no acute distress. She is feeling better today as compared to yesterday. Her blood cultures are positive for E. coli. She remains on meropenem. She denies any shortness of breath, cough or congestion. She is maintaining good to O2 saturations in the high 90s on room air. She's been hemodynamically stable. Afebrile. White count is 2.2. She is on Zarxio. Liver enzymes are improving. She's been seen by both GI and surgical services. No plans for intervention at this time. Objective - Vital Signs Vital signs: Vital Signs Temp 97.9 F 12/30/16 08:00 Pulse 97 12/30/16 08:00 Resp 16 12/30/16 08:00 BP 118/70 12/30/16 08:00 Pulse Ox 97 12/30/16 08:00 Intake & Output 12/29/16 12/30/16 12/30/16 18:59 06:59 18:59 Intake Total 560 500 Output Total 1350 Balance -790 500 Weight 76.1 kg 77.5 kg Intake: IV 500 Sodium Chloride 0.9% 1, 500 000 ml @ 100 mls/hr IV . Q10H [facility] Rx#:[id number] Intake, IV Titration 50 Amount Piperacillin-Tazobactam 3 50 .375 gm In Dextrose/Water 1 50ml.bag @ 12.5 mls/hr IVPB Q8HR [facility] Rx#: [id number] Oral 510 Output: Urine 1350 Other: Voiding Method Toilet Toilet Toilet # Voids 1 2 - Exam GENERAL EXAM: Alert, active, comfortable in no apparent distress. HEAD: Normocephalic. EYES: Normal reaction of pupils, equal size. NOSE: Clear with pink turbinates. THROAT: No erythema or exudates. NECK: No masses, no JVD. CHEST: No chest wall deformity. LUNGS: Equal air entry with no crackles, wheeze, rhonchi or dullness. CVS: S1 and S2 normal with no audible murmurs, regular rhythm. ABDOMEN: No hepatosplenomegaly, normal bowel sounds, no guarding or rigidity. SPINE: No scoliosis or deformity SKIN: No rashes CENTRAL NERVOUS SYSTEM: No focal deficits, tone is normal in all 4 extremities. Extremities: There is no peripheral edema. No clubbing no cyanosis peripheral pulses are intact. - Labs CBC & Chem 7: 12/29/16 06:04 12/30/16 05:52 Labs: Abnormal Lab Results - Last 24 Hours (Table) 12/29/16 12/30/16 12/30/16 Range/Units 06:07 05:52 05:52 PT 13.0 H (9.0-12.0) sec Sodium 146 H (137-145) mmol/L Potassium 3.4 L (3.5-5.1) mmol/L Chloride 117 H (98-107) mmol/L Carbon Dioxide 19 L (22-30) mmol/L Creatinine 1.07 H (0.52-1.04) mg/dL Glucose 112 H (74-99) mg/dL Calcium 8.3 L (8.4-10.2) mg/dL Total Bilirubin 3.8 H 1.6 H (0.2-1.3) mg/dL Conjugated Bilirubin 1.1 H (0.0-0.3) mg/dL Unconjugated Bilirubin 1.2 H (0.0-1.1) mg/dL Delta Bilirubin 1.5 H (0.0-0.2) mg/dL AST 133 H (14-36) U/L ALT 382 H (9-52) U/L Alkaline Phosphatase 151 H (38-126) U/L Total Protein 5.5 L (6.3-8.2) g/dL Albumin 2.9 L (3.5-5.0) g/dL Microbiology - Last 24 Hours (Table) 12/28/16 08:16 Blood Culture Gram Stain - Final Blood Blood Culture - Final Escherichia coli 12/28/16 06:00 Blood Culture Gram Stain - Final Blood Blood Culture - Final Escherichia coli 12/28/16 06:07 Urine Culture - Final Urine,Voided 12/28/16 08:16 Blood Culture - Final Blood Assessment and Plan Plan: Assessment 1 neutropenic sepsis on that investigation. Cultures of been sent and the patient was started on broad-spectrum antibiotics. Noted the patient had lactic acidosis the time of admission and is improving. Patient is neutropenic. Hemodynamically stable. 2 fever, improved 3 neutropenia 4 metastatic breast cancer currently on a combination of Ibrance and Femera. The patient has had previous skeletal metastases and previous pathologic fracture of the left femur requiring ORIF and she has received also addition therapy to her back. 5 gallbladder wall thickening without evidence of any acute cholecystitis 6 abnormal LFTs currently under investigation 7 acute kidney injury, rule out secondary to above. 8 thickening of the gastric wall and the level of mid gastric body, rule out gastric spasm versus neoplasm 9 moderate size hiatal hernia 10 hyperlipidemia 11 hypertension Plan The patient was seen and evaluated by Dr. Gutiérrez. She is stable from the pulmonary standpoint. She has recovered from her sepsis. Continue with meropenem. She has been seen by both GI and surgical services. The plan is for medical management. We will follow her on an as-needed basis.
[2016-12-30] MEDS ORDERED: POTASSIUM CHLORIDE ER 20 MEQ TAB.ER PO STA (16:45)
--- NOTE | 2016-12-30 18:21 | PN ---
DATE OF SERVICE: 12/30/2016 The patient is a 61-year-old pleasant lady with a history of metastatic breast cancer, was admitted to the hospital with acute onset of severe epigastric pain associated with nausea and vomiting that started two days ago. Following admission to the hospital she was noted to have elevated serum transaminases and T-bili up to 3.5 g/dL. She was also noted to have gram-negative bacteremia and presently is on broad-spectrum antibiotics and Dr. Beckman has been consulted with the patient. She did have CT of the abdomen and pelvis done that showed slightly dilated CBD measuring 7 mm and dilated gallbladder, but no stones seen. Dr. Alvares was also consulted for possible gallbladder pathology. In the meantime, the patient said that she is feeling much better. The abdominal pain is gone. Nausea and vomiting is resolved. On physical examination, she appears comfortable, in no apparent distress. Vitals signs are stable. Blood pressure is 127/99, pulse rate 98, temperature 97. HEENT examination unremarkable. Conjunctivae pink. Sclerae anicteric. Oral cavity, no lesions. NECK: No JVD or lymph node enlargement. CHEST: Clear to auscultation. HEART: Regular rate and rhythm. ABDOMEN: Soft. Bowel sounds are positive. No organomegaly. EXTREMITIES: No pedal edema. SKIN: No rashes. NEURO: Alert and oriented x3. LABS: Labs done from today, T-bili is down to 1.6. AST 133, ALT 382, alk phos 151. Hepatitis serologies for A, B, and C were negative. IMPRESSION: 1. Acute onset of severe epigastric pain followed by nausea and vomiting of 2 days' duration and noted to have elevated serum transaminases and E. coli bacteremia for which she is on broad-spectrum antibiotics. Clinical picture is suspicious for possible CBD stone that she may have passed spontaneously and as a result her biochemical perimeters are gradually improving. Presently she is afebrile and clinically much improved on broad-spectrum antibiotics. CT of the abdomen results reviewed which showed a dilated gallbladder, slightly dilated CBD but no stones. She had a similar episode in the past that lasted for 2 days and then resolved. 2. History of metastatic breast cancer, presently on oral chemo. RECOMMENDATIONS: 1. MRCP was requested but could not be done as it is not compatible with her recent MediPort. 2. Her serum transaminases are improving, hence we will continue with broad-spectrum antibiotics and watch closely. 3. Clinically no indication for an ERCP since everything is improving at the present time. 4. We will discuss with Dr. Alvares about possible gallbladder surgery in the future. Thank you for this consultation.
[2016-12-30] MEDS: MELATONIN 5 MG TABLET PO SCH (21:15)
[2016-12-31 07:04] LABS: Anion Gap 10 mmol/L; Blood Urea Nitrogen 5 mg/dL (7-17); Carbon Dioxide 22 mmol/L (22-30); Chloride 114 mmol/L (98-107); Glucose 103 mg/dL (74-99); Non-African American GFR(MDRD) 56 (>60 ml/min/1.73 sqM); Potassium 3.7 mmol/L (3.5-5.1); Sodium 146 mmol/L (137-145)
[2016-12-31 07:10] LABS: Basophils % (A) 1 %; CH 37.1; CHCM 35.7; Eosinophils # (A) 0.1 k/uL (0-0.7); Eosinophils % (A) 2 %; HCT 26.7 % (34.0-46.0); HDW 4.12; HGB 9.3 gm/dL (11.4-16.0); Luc % (Auto) 4; Lymphocytes # (A) 0.3 k/uL (1.0-4.8); Lymphocytes % (A) 5 %; MCH 36.4 pg (25.0-35.0); MCHC 34.8 g/dL (31.0-37.0); Macrocytosis Moderate; Mean Platelet Volume 7.3; Monocytes # (A) 0.2 k/uL (0-1.0); Monocytes % (A) 3 %; Neutrophils # (A) 4.4 k/uL (1.3-7.7); Neutrophils % (A) 86 %; Poikilocytosis Moderate; RBC 2.56 m/uL (3.80-5.40); RDW 15.3 % (11.5-15.5); WBC 5.1 k/uL (3.8-10.6); WBC (Perox) 5.53
[2016-12-31 07:12] LABS: MCV 104.3 fL (80.0-100.0)
[2016-12-31] MEDS: SODIUM CHLORIDE 0.9% 1,000 ML IV SCH ×2 (09:35→18:26)
[2016-12-31] MEDS: MEROPENEM 1 GM in SODIUM CHLORIDE 0.9% 100 ML IVPB SCH ×3 (09:40→23:56)
[2016-12-31] MEDS: DILTIAZEM CD 120 MG CAP.ER.24H PO SCH (09:42)
[2016-12-31] MEDS: LETROZOLE 2.5 MG TAB PO SCH (09:42)
[2016-12-31] MEDS: POLYETHYLENE GLYCOL 3350 17 GM POWD.PACK PO SCH (09:42)
--- NOTE | 2016-12-31 10:06 | PN ---
DATE OF SERVICE: 12/30/2016 INTERVAL HISTORY: Ms. Mitchell is a 61-year-old female with a past medical history of breast cancer, who is undergoing chemotherapy with Ibrance and letrozole, admitted to the hospital with intractable nausea and vomiting. The patient was also having diffuse abdominal pain associated with diarrhea. Patient had elevated lactic acid at the time of admission and also elevated LFTs. A CT scan of the abdomen did show some abnormalities including hiatal hernia and diffuse thickening of the esophageal wall. Eventually the patient developed fever and blood cultures were obtained, which were showing E. coli and infectious disease, Dr. Soriano, is on board and the patient has been started on meropenem and also on filgrastim. The patient's white count is slowly trending up. REVIEW OF SYSTEMS: CONSTITUTIONAL: The patient denies having any fevers, chills, or rigors. RESPIRATORY: No cough. No difficulty in breathing. CARDIAC: No chest pain or palpitations. GI: Abdominal pain is better. No nausea or vomiting. Tolerating her soft diet currently. HEMATOLOGICAL: No history of bleeding from any sites. Patient's medications have been reviewed. She is on Cardizem, Colace, filgrastim, letrozole, melatonin, meropenem, MiraLax. On examination, patient's vital signs are temperature 97.7, heart rate 90 to 100, respiratory rate 14, blood pressure 106/68. Saturating at 97% on room air. GENERAL EXAMINATION: Patient does not appear to be in any acute distress. HEAD: Atraumatic, normocephalic. EYES: Pupils, round, and reactive to light. NECK: No JVD. No thyromegaly. CARDIAC: S1, S2 heard. LUNGS: Bilateral breath sounds are positive. Examination of the chest wall, Mediport on the right side of the chest. No signs of active infection. CARDIOVASCULAR: S1, S2 heard. ABDOMEN: Soft, nontender. Bowel sounds are positive. EXTREMITIES: No edema. No cyanosis, no clubbing. Peripheral pulses are felt. CUSTOMER PROFESSIONAL: Alert, awake and oriented x3. No focal neurological deficits. PSYCHIATRIC: Appropriate mood and affect. MUSCULOSKELETAL: No joint swelling or deformity. PSYCHIATRIC: Appropriate mood and affect. Patient's labs are white count of 2.2, hemoglobin 8.2, platelets 113. PT 39, INR 1.3, sodium 146, potassium 2.4, chloride 117. Bicarb 19, BUN 10, creatinine 1.07, AST 133, ALT 382, alkaline phosphatase 151. Albumin is 2.9. ASSESSMENT AND PLAN: 1. Sepsis in a neutropenic patient. The patient's blood cultures have been positive for E. coli. The patient has been started on meropenem. Infectious disease, Dr. Soriano, on board. 2. Metastatic breast cancer, currently on combination of Ibrance and Femara. 3. Neutropenia. 4. CT scan of the abdomen showing gallbladder wall thickening without evidence of any acute cholecystitis. 5. Acute kidney injury, most likely secondary to sepsis. 6. Moderate sized hiatal hernia. 7. Hypertension. 8. Hyperlipidemia. 9. Hypokalemia. 10. Thrombocytopenia, most likely due to her underlying malignancy, but no signs of active bleeding. PLAN: The plan is to continue the patient on antibiotics in the form of meropenem. Patient's blood cultures from the 8th are showing E. coli. Blood cultures from the 9th are currently pending. Patient's white count has increased from 1.2 to 2.2 and the new neutrophil percentage is from 1 to 2 currently. Will continue with the current medication regimen and further recommendations to follow depending on the progress of the patient.
[2016-12-31] MEDS: FILGRASTIM-SNDZ 480 MCG/0.8 ML SYRINGE SQ SCH (11:49)
[2016-12-31] MEDS: MELOXICAM 7.5 MG TAB PO SCH (11:59)
--- NOTE | 2016-12-31 12:20 | P.PN ---
Subjective 51-year-old female patient with known history of metastatic left breast cancer with skeletal involvement. The patient has been treated for an oncologist, Dr. Thurman of [facility]. She also sees Dr. Caldwell in the same institution as a radiation oncologist. The patient has been maintained on a combination Ibrance and Letrazole and she's been taking the treatment for the past several months. She presented to the emergency department because of epigastric/upper abdominal pain. Radiating sidewise along her lower chest border under her breast line. This was a dull ache that was rather continuous and affecting the upper half of the abdomen associated with some nausea. No emesis. No bright red blood per rectum. She was febrile in the emergency department he is currently she is afebrile hemodynamically stable. Denied having any chest pain. She was complaining of no shortness of breath. No change in mental status. For this reason the patient came into the emergency department she was found to be neutropenic and febrile. Her temperature was 100.4. Her pulse was as high as 131. Her BP was as low as 110/64. Her white cell count was 1.2. Her hemoglobin was 11.0 and her creatinine was 1.38. Based on this, the sepsis protocol was initiated. The patient's lactic acid was high as 4.0 and she was resuscitated IV fluids and her lactic acid subsequently dropped down to 2.0. Her liver function tests were abnormal. The bilirubin was at 2.4. She had an AST of 655 and an ALP of 369 and alkaline phosphatase of 208. Troponin was negative. The patient was started on broad-spectrum antibiotics and she was given a combination of Zosyn and vancomycin. The patient was also givenZarxio for her underlying neutropenia. She is already feeling better. Her pain has somewhat subsided. As part of her workup, a CAT scan of the chest was done that showed no evidence of any pulmonary embolism. There was some areas of patchy atelectasis in the left lung base. There was a small to moderate-sized hiatal hernia and prominent contrast column within the esophagus. There was a mass in her left breast and diffuse osteoblastic metastases demonstrated. The CAT scan of the abdomen and pelvis was done and showed a small to moderate- sized hiatal hernia again and there was circumferential thickening along the mid gastric body and this raises the suspicion for a gastric spasm versus tumor. Also there was mild dilatation of the bile duct and mild gallbladder wall thickening without any surrounding inflammation or high drop it changes to support acute cholecystitis. The patient also had some increased soft tissue density in the region of kayleigh hepatis. The ultrasound the gallbladder was also completed and there was minimal wall thickening of the gallbladder without any intraluminal shadowing or gallstones or evidence of acute cholecystitis. The patient was seen again today 12/29/2016 in follow-up on the selective care unit. She is awake and alert in no acute distress. Her abdominal discomfort is residing somewhat she still has some elements of nausea. Her blood cultures are positive for gram-negative bacilli. White count 2.2. Hemoglobin 8.2. Bicarb 19. Liver enzymes remain elevated. Hepatitis screen is negative. Gastroenterology and surgical services on the case as well. The patient is seen again today 12/30/2016 in follow-up on the selective care unit. He is awake and alert in no acute distress. She is feeling better today as compared to yesterday. Her blood cultures are positive for E. coli. She remains on meropenem. She denies any shortness of breath, cough or congestion. She is maintaining good to O2 saturations in the high 90s on room air. She's been hemodynamically stable. Afebrile. White count is 2.2. She is on Zarxio. Liver enzymes are improving. She's been seen by both GI and surgical services. No plans for intervention at this time. On 12/31/2016 I'm seeing Uzma in the follow-up. The patient is a E. coli septicemia. The patient has recovered from her febrile neutropenia. She is afebrile for now. Her white cell count is improved as above 5. Meanwhile, his antibiotic has been switched IV Merrem knowing that the E. coli was resistant to the Zosyn. The patient is having some liquidy bowel movements and without going to check a stool for C. diff. I discussed the case with the surgeon and there are no plans to undergo a cholecystectomy for now. The patient will need an MRCP to make sure there is no metastases and that kayleigh hepatis area. She is doing well. She has no specific complaints. Liver function tests is improved. Objective - Vital Signs Vital signs: Vital Signs Temp 98.3 F 12/31/16 08:00 Pulse 108 H 12/31/16 08:00 Resp 16 12/31/16 08:00 BP 145/80 12/31/16 08:00 Pulse Ox 97 12/31/16 08:46 Intake & Output 12/30/16 12/31/16 12/31/16 18:59 06:59 18:59 Intake Total 1760 1000 240 Output Total 400 Balance 1760 600 240 Weight 76.5 kg Intake: IV 600 900 Sodium Chloride 0.9% 1, 600 900 000 ml @ 100 mls/hr IV . Q10H [facility] Rx#:[id number] Intake, IV Titration 250 100 Amount Meropenem 1 gm In Sodium 200 100 Chloride 0.9% 100 ml @ 200 mls/hr IVPB Q8HR [facility] Rx#:[id number] Piperacillin-Tazobactam 3 50 .375 gm In Dextrose/Water 1 50ml.bag @ 12.5 mls/hr IVPB Q8HR [facility] Rx#: [id number] Oral 910 240 Output: Urine 400 Other: Voiding Method Toilet Toilet Toilet # Voids 3 - Exam GENERAL EXAM: Alert, active, comfortable in no apparent distress. HEAD: Normocephalic. EYES: Normal reaction of pupils, equal size. NOSE: Clear with pink turbinates. THROAT: No erythema or exudates. NECK: No masses, no JVD. CHEST: No chest wall deformity. LUNGS: Equal air entry with no crackles, wheeze, rhonchi or dullness. CVS: S1 and S2 normal with no audible murmurs, regular rhythm. ABDOMEN: No hepatosplenomegaly, normal bowel sounds, no guarding or rigidity. SPINE: No scoliosis or deformity SKIN: No rashes CENTRAL NERVOUS SYSTEM: No focal deficits, tone is normal in all 4 extremities. Extremities: There is no peripheral edema. No clubbing no cyanosis peripheral pulses are intact. - Labs CBC & Chem 7: 12/31/16 06:23 12/31/16 06:23 Labs: Abnormal Lab Results - Last 24 Hours (Table) 12/31/16 12/31/16 Range/Units 06:23 06:23 RBC 2.56 L (3.80-5.40) m/uL Hgb 9.3 L (11.4-16.0) gm/dL Hct 26.7 L (34.0-46.0) % MCV 104.3 H D (80.0-100.0) fL MCH 36.4 H (25.0-35.0) pg Lymphocytes # 0.3 L (1.0-4.8) k/uL Sodium 146 H (137-145) mmol/L Chloride 114 H (98-107) mmol/L BUN 5 L (7-17) mg/dL Glucose 103 H (74-99) mg/dL Microbiology - Last 24 Hours (Table) 12/30/16 00:40 Blood Culture - Preliminary Blood No Growth after 24 hours 12/28/16 08:16 Blood Culture Gram Stain - Final Blood Blood Culture - Final Escherichia coli Assessment and Plan Plan: Assessment 1 neutropenic sepsis with E. coli, the most likely source is the gallbladder. The patient is currently on IV Merrem based on the sensitivities. The neutropenia has recovered. We are contemplating further evaluation and possible surgical resection of the gallbladder later stage. 2 fever, improved 3 neutropenia, recovered 4 metastatic breast cancer currently on a combination of Ibrance and Femera. The patient has had previous skeletal metastases and previous pathologic fracture of the left femur requiring ORIF and she has received also addition therapy to her back. 5 gallbladder wall thickening without evidence of clinical cholecystitis, surgeries on the case 6 abnormal LFTs improving 7 acute kidney injury, rule out secondary to above. 8 thickening of the gastric wall and the level of mid gastric body, rule out gastric spasm versus neoplasm 9 moderate size hiatal hernia 10 hyperlipidemia 11 hypertension Plan Continued IV Merrem. MRCP of the gallbladder. Gen. surgery to follow-up on the gallbladder abnormalities and the possibility of intra-abdominal sepsis from the gallbladder source. Neutropenia has recovered. The patient is having liquidy stool and will check a stool for C. diff. I'm also going to advance her diet for now. I'm also going to resume her meloxicam and oxycodone.
--- NOTE | 2016-12-31 12:32 | P.PN ---
Subjective Principal diagnosis: Suspected cholangitis Patient says she feels better today. She was having some right leg pain. That is resolved. Liver function tests from today are pending. Was having some diarrhea. White blood cell count is normal. Objective - Vital Signs Vital signs: Vital Signs Temp 98.3 F 12/31/16 08:00 Pulse 108 H 12/31/16 08:00 Resp 16 12/31/16 08:00 BP 145/80 12/31/16 08:00 Pulse Ox 97 12/31/16 08:46 Intake & Output 12/30/16 12/31/16 12/31/16 18:59 06:59 18:59 Intake Total 1760 1000 240 Output Total 400 Balance 1760 600 240 Weight 76.5 kg Intake: IV 600 900 Sodium Chloride 0.9% 1, 600 900 000 ml @ 100 mls/hr IV . Q10H [facility] Rx#:[id number] Intake, IV Titration 250 100 Amount Meropenem 1 gm In Sodium 200 100 Chloride 0.9% 100 ml @ 200 mls/hr IVPB Q8HR [facility] Rx#:[id number] Piperacillin-Tazobactam 3 50 .375 gm In Dextrose/Water 1 50ml.bag @ 12.5 mls/hr IVPB Q8HR [facility] Rx#: [id number] Oral 910 240 Output: Urine 400 Other: Voiding Method Toilet Toilet Toilet # Voids 3 - Exam Abdomen: Soft, nontender, nondistended - Labs CBC & Chem 7: 12/31/16 06:23 12/31/16 06:23 Labs: Abnormal Lab Results - Last 24 Hours (Table) 12/31/16 12/31/16 Range/Units 06:23 06:23 RBC 2.56 L (3.80-5.40) m/uL Hgb 9.3 L (11.4-16.0) gm/dL Hct 26.7 L (34.0-46.0) % MCV 104.3 H D (80.0-100.0) fL MCH 36.4 H (25.0-35.0) pg Lymphocytes # 0.3 L (1.0-4.8) k/uL Sodium 146 H (137-145) mmol/L Chloride 114 H (98-107) mmol/L BUN 5 L (7-17) mg/dL Glucose 103 H (74-99) mg/dL Microbiology - Last 24 Hours (Table) 12/30/16 00:40 Blood Culture - Preliminary Blood No Growth after 24 hours 12/28/16 08:16 Blood Culture Gram Stain - Final Blood Blood Culture - Final Escherichia coli Assessment and Plan (1) Abdominal pain Narrative/Plan: Continue antibiotics. Switched orals per the primary service. Outpatient MRCP advised. After discussing with the patient having this performed at [facility] where they are more familiar with her cancer history and her indwelling port may be reasonable. Patient follow-up with myself and GI in the office post MRCP. Status: Acute
--- NOTE | 2016-12-31 13:26 | CONS ---
DATE OF CONSULTATION: REASON FOR CONSULTATION: Gram-negative bacteremia. HISTORY OF PRESENT ILLNESS: The patient is a 61 -year-old female presenting to the ER at [facility] on 12/28/2016 with chief complaint of pain in the epigastric area and pain has been mostly ( ) in onset and some in the right upper quadrant area. The patient ( ) has about ( ) over the last 3 years. The patient pain is described more of a sharp quality about 10 out of 10. She presented to the ER with associated nausea and vomiting any significant diarrhea. On arrival to the ER, the patient did have a fever of 100.4. Her white count has been on the low side in a patient who did have a history of underlying ( ) on oral chemo. The patient did have elevated lactic acid and elevated liver enzymes. The patient did have blood cultures drawn and now is being treated with broad-spectrum antibiotic therapy. Yesterday, the blood culture came back positive showing with E. coli showing resistance to the Zosyn which the patient was already on. Hence ID was consulted for further recommendation regarding antibiotic therapy. I did adjust her antibiotic ( ) Meropenem and repeat blood culture has been ordered. She was evaluated on rounds late this afternoon with overall improvement in her abdominal pain. No further nausea or vomiting. Liver enzymes are improving as well. REVIEW OF SYSTEMS: CONSTITUTIONAL: Positive for weakness and low grade fever. EYES: No complaint. ENT: No complaint. RESPIRATORY: No complaint. CARDIOVASCULAR: No complaint. GENITOURINARY: No complaint. GASTROINTESTINAL: As per HPI. MUSCULOSKELETAL: No complaint. INTEGUMENTARY: No complaint. PSYCHOLOGIC: No complaint. ENDOCRINE: No complaint. NEUROLOGICAL: No complaint. Past medical history significant for metastatic breast cancer. Hyperlipidemia. Pneumonia. PAST SURGICAL HISTORY: Tonsillectomy and colonoscopy, left humerus fracture repair. Mediport placement. SOCIAL HISTORY: Patient smoked from 1971 to 2005, rarely drinks, admitted to marijuana use. FAMILY HISTORY: Mother lived to be 91 years old. Father history of COPD. ALLERGIES: LATEX AND SULFA. MEDICATIONS: Include the patient is currently on: 1. Cardizem. 2. Colace. 3. And. 4. ( ). 5. Femara. 6. Meropenem 1 gram q.8. 7. Miralax. On examination, blood pressure is 113/51 with a pulse 96, temperature 98.2. She is 97% on room air. General description is a middle age female lying in bed in no distress. No tachypnea or accessory muscle of respiration use. HEENT examination shows slight pallor. There is no scleral icterus. Oral mucous membrane dry. NECK: Trachea central. No thyromegaly. LUNGS: Unlabored breathing. Clear to auscultation anteriorly. No wheeze or crackles. HEART: S1, S2 regular rate and rhythm. ABDOMEN: Soft, mild tender in the right upper quadrant area. No guarding or rigidity. No organomegaly. EXTREMITIES: No edema of the feet. SKIN EXAMINATION: No rash or mass palpable. NEUROLOGICAL: The patient is awake, alert, oriented x3. Mood and affect normal. LABS: Hemoglobin 8.1, white count 2.2. BUN of 10, creatinine 1.07. Potassium 3.4. Liver enzymes has shown overall improvement. Urine is negative. Hepatitis panel was negative. Blood culture with an E. coli that does show resistant pattern to cefazolin, ciprofloxacin and Zosyn and did have a CT of abdomen and pelvis shows a small to moderate hiatal hernia, circumferential thickening over the gastric body and mild dilatation of the bile duct. DIAGNOSTIC IMPRESSION AND PLAN: Patient with Escherichia coli bacteremia. Source is likely ascending cholangitis in a patient who possibly has a gallstone that passed through with E. coli bacteremia that shows ( ) resistant in a patient who did have history of metastatic breast cancer, currently on chemo and did have evidence of neutropenia/leukopenia with admission to hospital with sepsis, features of sepsis. PLAN: 1. We will continue the patient on Meropenem ( ) q8 hour. 2. Blood culture has been repeated to make sure those are negative before ( ) more likely ( ) with duration of antibiotic should be at least two weeks from negative blood culture. The patient will likely need cholecystectomy in the near future to prevent any future episodes of ascending cholangitis ( ) current bacteremia. Thank you for this consultation. We will follow this patient along with you.
[2016-12-31] MEDS: MELATONIN 5 MG TABLET PO SCH (21:11)
[2017-01-01] MEDS: SODIUM CHLORIDE 0.9% 1,000 ML IV SCH ×2 (04:44→12:28)
[2017-01-01 06:26] LABS: Basophils % (A) 1 %; CH 36.5; Eosinophils # (A) 0.1 k/uL (0-0.7); Eosinophils % (A) 3 %; HDW 3.78; HGB 8.5 gm/dL (11.4-16.0); Luc % (Auto) 4; Lymphocytes # (A) 0.4 k/uL (1.0-4.8); Lymphocytes % (A) 16 %; MCH 35.3 pg (25.0-35.0); MCHC 32.6 g/dL (31.0-37.0); MCV 108.1 fL (80.0-100.0); Macrocytosis Marked; Mean Platelet Volume 7.7; Monocytes # (A) 0.1 k/uL (0-1.0); Monocytes % (A) 5 %; Neutrophils # (A) 1.8 k/uL (1.3-7.7); Neutrophils % (A) 71 %; Poikilocytosis Slight; RBC 2.41 m/uL (3.80-5.40); RDW 15.6 % (11.5-15.5); WBC 2.5 k/uL (3.8-10.6); WBC (Perox) 2.66
[2017-01-01 06:28] LABS: Anion Gap 9 mmol/L; Blood Urea Nitrogen 10 mg/dL (7-17); Calcium 8.5 mg/dL (8.4-10.2); Carbon Dioxide 22 mmol/L (22-30); Chloride 114 mmol/L (98-107); Glucose 97 mg/dL (74-99); Non-African American GFR(MDRD) 56 (>60 ml/min/1.73 sqM); Potassium 3.4 mmol/L (3.5-5.1); Sodium 145 mmol/L (137-145)
[2017-01-01 07:35] LABS: ALT 170 U/L (9-52); AST 21 U/L (14-36); Alkaline Phosphatase 121 U/L (38-126); Total Bilirubin 0.7 mg/dL (0.2-1.3); Total Protein 5.5 g/dL (6.3-8.2)
[2017-01-01] MEDS: MEROPENEM 1 GM in SODIUM CHLORIDE 0.9% 100 ML IVPB SCH (08:27)
[2017-01-01] MEDS: POLYETHYLENE GLYCOL 3350 17 GM POWD.PACK PO SCH (08:28)
[2017-01-01] MEDS: DILTIAZEM CD 120 MG CAP.ER.24H PO SCH (08:28)
[2017-01-01] MEDS: LETROZOLE 2.5 MG TAB PO SCH (08:28)
[2017-01-01] MEDS: MELOXICAM 7.5 MG TAB PO SCH (08:28)
[2017-01-01 08:34] VITALS: PULSE 103; TEMP 97.9
[2017-01-01] MEDS ORDERED: ERTAPENEM 1 GM in SODIUM CHLORIDE 0.9% 50 ML IVPB SCH (11:00)
--- NOTE | 2017-01-01 11:12 | PN ---
DATE OF SERVICE: 12/31/2016 INTERVAL HISTORY: Ms. Mitchell is a 61-year-old female with past medical history of breast cancer who is undergoing chemotherapy with ( ) admitted to the hospital with intractable nausea and vomiting. Patient is also having diffuse abdominal pain associated with diarrhea. Patient had elevated lactic acid at the time of admission and also elevated LFTs. CT scan of the abdomen did show some abnormalities including, hiatal hernia and diffuse thickening of the esophageal wall. Eventually the patient developed fever and blood cultures were obtained which was showing E. coli and infectious disease, Dr. Soriano/Dr. Beckman currently following the patient. Patient has been started on Meropenem and also on Filgrastim for neutropenia. Patient's white count has been trending up. Today, the patient is comfortably lying in bed, appears to be no acute distress. REVIEW OF SYSTEMS: CONSTITUTIONAL: Denies having any fevers, chills or rigors. RESPIRATORY: No cough. No difficulty breathing. CARDIAC: No chest pain or palpitations. GI: Abdomen pain is better. No nausea or vomiting. Tolerating normal diet currently. HEMATOLOGICAL: No history of bleeding from any sites. Patient's medications have been reviewed. On examination, patient's vital signs temperature 98.4, heart rate between 100 to 110, respiratory rate 14, blood pressure 138/89. Saturating at 98% on room air. GENERAL EXAMINATION: Patient does not appear to be in acute distress. HEAD: Atraumatic, normocephalic. EYES: Pupils equal, round and reactive to light. NECK: No JVD. No thyromegaly. CARDIOVASCULAR: S1, S2 heard. LUNGS: Bilateral breath sounds are positive. The patient has a Mediport in the right side of the chest. No signs of any active infection. CARDIOVASCULAR: S1, S2 heard. ABDOMEN: Soft, nontender. Bowel sounds positive. EXTREMITIES: No edema. No cyanosis, no clubbing. Peripheral pulses are felt. SUPPLY CHAIN PLANNER: Alert, awake and oriented x3. No focal neurological deficits. PSYCHIATRIC: Appropriate mood and affect. MUSCULOSKELETAL: No joint swelling or deformity. Patient's labs: White count of 5.1, hemoglobin 9.3, platelets of 164. Sodium 146, potassium 3.7, chloride 114, bicarb 22, BUN 5, creatinine 1. Albumin is 2.9. ASSESSMENT AND PLAN: 1. Sepsis in neutropenic patient, the patient ( ) has been positive for Escherichia coli. The patient has been started on Meropenem. Infectious disease Dr. Soriano/Dr. Beckman on board and following the patient. 2. Metastatic breast cancer currently on combination of ( ). 3. Neutropenia. Her white count was trending up on Filgrastim. 4. CT scan of the abdomen showing gallbladder wall thickening without evidence of any acute cholecystitis. 5. Acute kidney injury, most likely secondary to sepsis, resolving. 6. Moderate sized hiatal hernia. 7. Hypertension. 8. Hyperlipidemia. 9. Hyperkalemia. 10. Thrombocytopenia most likely secondary to underlying malignancy, but no signs of active bleeding. Platelets are trending up. PLAN: The plan is to continue the patient in the form of Meropenem. Patient's blood cultures from 12/28 showing E. coli. Current blood cultures from the tenth no growth for the past 24 hours. Patient's white count has been trending up which is good. Surgery, Dr. Alvares did evaluate the patient and recommended that she gets an M.R.C.P. as outpatient and to follow up with him in his office. We will continue with the current medication regimen. We will discuss with ID for change in antibiotics to p.o. for possible discharge. Further recommendations depending on the clinical course of the patient.
--- NOTE | 2017-01-01 11:47 | PN ---
DATE OF SERVICE: 12/31/2016 Reason for follow-up is an E. coli bacteremia secondary to cholangitis. INTERVAL HISTORY: The patient is afebrile. She has been breathing comfortably. Denies significant chest pain, no shortness of breath. Occasional cough. No abdominal pain, nausea or vomiting or diarrhea. On examination, blood pressure 133/89 with a pulse of 109, temperature 98.4. She is 98% on room air. General description is a middle-aged female up in the room in no distress. RESPIRATORY SYSTEM: Unlabored breathing. Clear to auscultation anteriorly. HEART: S1, S2. Regular rate and rhythm. ABDOMEN: Soft, no tenderness. LABS: Hemoglobin 9.1, white count 5.1 with a BUN of 5, creatinine 1.0. DIAGNOSTIC IMPRESSION AND PLAN: Patient and Escherichia coli bacteremia source is likely ascending cholangitis, ( ) do have a significant resistant pattern and the patient is currently on Meropenem that will transition to Invanz 1 gram daily for another 12 days to finish the course of therapy. The patient already has a port that can be used for this antibiotic purposes. Continue supportive care.
--- NOTE | 2017-01-01 12:53 | P.PN ---
Subjective Principal diagnosis: Acute E. coli sepsis, acute febrile neutropenia 51-year-old female patient with known history of metastatic left breast cancer with skeletal involvement. The patient has been treated for an oncologist, Dr. Thurman of [facility]. She also sees Dr. Caldwell in the same institution as a radiation oncologist. The patient has been maintained on a combination Ibrance and Letrazole and she's been taking the treatment for the past several months. She presented to the emergency department because of epigastric/upper abdominal pain. Radiating sidewise along her lower chest border under her breast line. This was a dull ache that was rather continuous and affecting the upper half of the abdomen associated with some nausea. No emesis. No bright red blood per rectum. She was febrile in the emergency department he is currently she is afebrile hemodynamically stable. Denied having any chest pain. She was complaining of no shortness of breath. No change in mental status. For this reason the patient came into the emergency department she was found to be neutropenic and febrile. Her temperature was 100.4. Her pulse was as high as 131. Her BP was as low as 110/64. Her white cell count was 1.2. Her hemoglobin was 11.0 and her creatinine was 1.38. Based on this, the sepsis protocol was initiated. The patient's lactic acid was high as 4.0 and she was resuscitated IV fluids and her lactic acid subsequently dropped down to 2.0. Her liver function tests were abnormal. The bilirubin was at 2.4. She had an AST of 655 and an ALP of 369 and alkaline phosphatase of 208. Troponin was negative. The patient was started on broad-spectrum antibiotics and she was given a combination of Zosyn and vancomycin. The patient was also givenZarxio for her underlying neutropenia. She is already feeling better. Her pain has somewhat subsided. As part of her workup, a CAT scan of the chest was done that showed no evidence of any pulmonary embolism. There was some areas of patchy atelectasis in the left lung base. There was a small to moderate-sized hiatal hernia and prominent contrast column within the esophagus. There was a mass in her left breast and diffuse osteoblastic metastases demonstrated. The CAT scan of the abdomen and pelvis was done and showed a small to moderate- sized hiatal hernia again and there was circumferential thickening along the mid gastric body and this raises the suspicion for a gastric spasm versus tumor. Also there was mild dilatation of the bile duct and mild gallbladder wall thickening without any surrounding inflammation or high drop it changes to support acute cholecystitis. The patient also had some increased soft tissue density in the region of kayleigh hepatis. The ultrasound the gallbladder was also completed and there was minimal wall thickening of the gallbladder without any intraluminal shadowing or gallstones or evidence of acute cholecystitis. The patient was seen again today 12/29/2016 in follow-up on the selective care unit. She is awake and alert in no acute distress. Her abdominal discomfort is residing somewhat she still has some elements of nausea. Her blood cultures are positive for gram-negative bacilli. White count 2.2. Hemoglobin 8.2. Bicarb 19. Liver enzymes remain elevated. Hepatitis screen is negative. Gastroenterology and surgical services on the case as well. The patient is seen again today 12/30/2016 in follow-up on the selective care unit. He is awake and alert in no acute distress. She is feeling better today as compared to yesterday. Her blood cultures are positive for E. coli. She remains on meropenem. She denies any shortness of breath, cough or congestion. She is maintaining good to O2 saturations in the high 90s on room air. She's been hemodynamically stable. Afebrile. White count is 2.2. She is on Zarxio. Liver enzymes are improving. She's been seen by both GI and surgical services. No plans for intervention at this time. On 12/31/2016 I'm seeing Uzma in the follow-up. The patient is a E. coli septicemia. The patient has recovered from her febrile neutropenia. She is afebrile for now. Her white cell count is improved as above 5. Meanwhile, his antibiotic has been switched IV Merrem knowing that the E. coli was resistant to the Zosyn. The patient is having some liquidy bowel movements and without going to check a stool for C. diff. I discussed the case with the surgeon and there are no plans to undergo a cholecystectomy for now. The patient will need an MRCP to make sure there is no metastases and that kayleigh hepatis area. She is doing well. She has no specific complaints. Liver function tests is improved. On 01/01/2017, patient is doing well, asymptomatic, she is afebrile, patient is likely to be discharged home today on IV antibiotics, patient will have MRCP of the gallbladder on outpatient basis. No plans for immediate cholecystectomy at this point. This could be done on outpatient basis. The purpose of the MRCP is to make sure there is no metastatic disease in the kayleigh hepatis area. Objective - Vital Signs Vital signs: Vital Signs Temp 97.9 F 01/01/17 08:00 Pulse 103 H 01/01/17 08:00 Resp 16 01/01/17 04:00 BP 127/95 01/01/17 08:00 Pulse Ox 97 01/01/17 08:00 Intake & Output 12/31/16 01/01/17 01/01/17 18:59 06:59 18:59 Intake Total 2120 500 Output Total 1400 50 Balance 720 450 Weight 76.8 kg Intake: IV 800 500 Sodium Chloride 0.9% 1, 800 500 000 ml @ 100 mls/hr IV . Q10H [facility]BY Rx#:[id number] Intake, IV Titration 200 Amount Meropenem 1 gm In Sodium 200 Chloride 0.9% 100 ml @ 200 mls/hr IVPB Q8HR SHELBY Rx#:[id number] Oral 1120 Output: Urine 1400 50 Other: Voiding Method Toilet Toilet # Voids 2 1 - Exam GENERAL EXAM: Alert, active, comfortable in no apparent distress. HEAD: Normocephalic. EYES: Normal reaction of pupils, equal size. NOSE: Clear with pink turbinates. THROAT: No erythema or exudates. NECK: No masses, no JVD. CHEST: No chest wall deformity. LUNGS: Equal air entry with no crackles, wheeze, rhonchi or dullness. CVS: S1 and S2 normal with no audible murmurs, regular rhythm. ABDOMEN: No hepatosplenomegaly, normal bowel sounds, no guarding or rigidity. SPINE: No scoliosis or deformity SKIN: No rashes CENTRAL NERVOUS SYSTEM: No focal deficits, tone is normal in all 4 extremities. Extremities: There is no peripheral edema. No clubbing no cyanosis peripheral pulses are intact. - Labs CBC & Chem 7: 01/01/17 06:01 01/01/17 06:01 Labs: Abnormal Lab Results - Last 24 Hours (Table) 01/01/17 01/01/17 Range/Units 06:01 06:01 WBC 2.5 L (3.8-10.6) k/uL RBC 2.41 L (3.80-5.40) m/uL Hgb 8.5 L (11.4-16.0) gm/dL Hct 26.0 L (34.0-46.0) % MCV 108.1 H (80.0-100.0) fL MCH 35.3 H (25.0-35.0) pg RDW 15.6 H (11.5-15.5) % Lymphocytes # 0.4 L (1.0-4.8) k/uL Potassium 3.4 L (3.5-5.1) mmol/L Chloride 114 H (98-107) mmol/L ALT 170 H (9-52) U/L Total Protein 5.5 L (6.3-8.2) g/dL Albumin 2.9 L (3.5-5.0) g/dL Microbiology - Last 24 Hours (Table) 12/30/16 00:40 Blood Culture - Preliminary Blood No Growth after 48 hours Assessment and Plan Plan: 1 neutropenic sepsis with E. coli, the most likely source is the gallbladder. The patient is currently on IV Merrem based on the sensitivities. The neutropenia has recovered. 2 fever, improved 3 neutropenia, recovered 4 metastatic breast cancer currently on a combination of Ibrance and Femera. The patient has had previous skeletal metastases and previous pathologic fracture of the left femur requiring ORIF and she has received also addition therapy to her back. 5 gallbladder wall thickening without evidence of clinical cholecystitis, surgeries on the case 6 abnormal LFTs improving 7 acute kidney injury, rule out secondary to above. 8 thickening of the gastric wall and the level of mid gastric body, rule out gastric spasm versus neoplasm 9 moderate size hiatal hernia 10 hyperlipidemia 11 hypertension Recommendation: I agree with discharge planning on IV antibiotics, we'll sign off and see on when necessary basis. Patient will likely be discharged home today. Time with Patient: Less than 30
[2017-01-01 13:12] VITALS: BP 140/89
--- NOTE | 2017-01-01 17:37 | CONS ---
DATE OF CONSULTATION: 01/01/2017 Patient is a 61-year-old pleasant white female admitted to the hospital with abdominal pain, nausea, vomiting and Gram-negative bacteremia. She was noted to have elevated serum transaminases at the time of admission to the hospital with elevated bilirubin, but CT scan of the abdomen was unremarkable. Ultrasound of the gallbladder did not show any evidence of gallstones. She is at present doing well. Her abdominal pain has resolved. No more nausea or vomiting on a regular diet, tolerating it well. On physical examination, she appears comfortable, in no apparent distress. Vital signs are stable. Blood pressure 127/95, pulse rate 103, temperature 97.9. HEENT EXAMINATION: Unremarkable. Conjunctivae pink. Sclerae anicteric. Oral cavity with no lesions. NECK: No JVD or lymph node enlargement. Chest was clear to auscultation. HEART: Regular rate and rhythm. ABDOMEN: Soft. Bowel sounds are positive. No organomegaly. EXTREMITIES: No pedal edema. SKIN: No rashes. NEURO: Alert and oriented x3. No focal deficits. LABS: AST 21, ALT 170, alkaline phosphatase 121. Total bilirubin 0.7. CBC shows WBC 2.5, hemoglobin 8.5, platelets normal. IMPRESSION: Ascending cholangitis secondary to Escherichia coli bacteremia, most likely related to a common bile duct stone that has passed spontaneously; however, because of the CT scan showing a fullness in the kayleigh hepatis, possibility of ( ) compression cannot be excluded. In either event, on antibiotics patient is doing extremely well and symptoms resolved and liver function tests have almost normalized. RECOMMENDATIONS: 1. Continue with antibiotics as per Dr. Beckman. 2. Will consider proceeding with an M.R.C.P. on an outpatient basis. 3. Will follow her closely.
--- NOTE | 2017-01-01 17:49 | PN ---
DATE OF SERVICE: 01/01/2017 Reason for follow-up is E. coli bacteremia with ascending cholangitis. INTERVAL HISTORY: The patient is afebrile. She has been breathing comfortably. Denies significant chest pain, shortness of breath. No cough, no abdominal pain or any diarrhea. On examination, blood pressure 140/87 with a pulse of 103. Temperature 97.9. She is 98% on room air. General description is a middle-aged female up in bed in no distress. RESPIRATORY SYSTEM: Unlabored breathing. Clear to auscultation. HEART: S1, S2. Regular rate and rhythm. ABDOMEN: Soft, no tenderness. LABS: Hemoglobin 8.5, white count 2.5. BUN of 10, creatinine 1. DIAGNOSTIC IMPRESSION AND PLAN: Patient with an Escherichia coli bacteremia which did show resistant pattern, currently on ( ). Will switch over to Invanz for another 12 days to finish a course of therapy. Continue supportive care.
--- NOTE | 2017-01-01 18:05 | P.PN ---
Subjective Principal diagnosis: Suspected cholangitis Patient feels well today. Denies abdominal pain. Plans are for discharge. Today's labs show a bilirubin is normalized at 0.7. Objective - Vital Signs Vital signs: Vital Signs Temp 97.9 F 01/01/17 08:00 Pulse 103 H 01/01/17 12:00 Resp 16 01/01/17 04:00 BP 140/89 01/01/17 12:00 Pulse Ox 98 01/01/17 12:00 Intake & Output 12/31/16 01/01/17 01/01/17 18:59 06:59 18:59 Intake Total 2120 500 890 Output Total 1400 50 Balance 720 450 890 Weight 76.8 kg Intake: IV 800 500 500 Sodium Chloride 0.9% 1, 800 500 500 000 ml @ 100 mls/hr IV . Q10H [facility] Rx#:[id number] Intake, IV Titration 200 150 Amount Ertapenem 1 gm In Sodium 50 Chloride 0.9% 50 ml @ 100 mls/hr IVPB DAILY [facility] Rx #:[id number] Meropenem 1 gm In Sodium 200 100 Chloride 0.9% 100 ml @ 200 mls/hr IVPB Q8HR [facility] Rx#:[id number] Oral 1120 240 Output: Urine 1400 50 Other: Voiding Method Toilet Toilet # Voids 2 1 # Bowel Movements 0 - Exam Abdomen: Soft, nontender, nondistended - Labs CBC & Chem 7: 01/01/17 06:01 01/01/17 06:01 Labs: Abnormal Lab Results - Last 24 Hours (Table) 01/01/17 01/01/17 Range/Units 06:01 06:01 WBC 2.5 L (3.8-10.6) k/uL RBC 2.41 L (3.80-5.40) m/uL Hgb 8.5 L (11.4-16.0) gm/dL Hct 26.0 L (34.0-46.0) % MCV 108.1 H (80.0-100.0) fL MCH 35.3 H (25.0-35.0) pg RDW 15.6 H (11.5-15.5) % Lymphocytes # 0.4 L (1.0-4.8) k/uL Potassium 3.4 L (3.5-5.1) mmol/L Chloride 114 H (98-107) mmol/L ALT 170 H (9-52) U/L Total Protein 5.5 L (6.3-8.2) g/dL Albumin 2.9 L (3.5-5.0) g/dL Microbiology - Last 24 Hours (Table) 12/30/16 00:40 Blood Culture - Preliminary Blood No Growth after 48 hours Assessment and Plan (1) Abdominal pain Narrative/Plan: Continue diet as tolerated. Stable for discharge. Outpatient MRCP with follow- up planned. Status: Acute
--- NOTE | 2017-01-02 11:41 | DS ---
DATE OF ADMISSION: 12/28/2016 DATE OF DISCHARGE: 01/01/2017 DATE OF SERVICE: 01/01/2017 HOSPITAL COURSE: Ms. Mitchell is a 61-year-old female with a past medical history of ( ) undergoing chemotherapy, admitted to the hospital with intractable nausea and vomiting. The patient was also having diffuse abdominal pain associated with diarrhea. The patient had elevated lactic acid at the time of admission and also elevated LFT. CAT scan of the abdomen showed some abnormalities including hiatal and diffuse thickening of the ( ) wall. Eventually the patient developed fever and blood cultures were obtained, which were showing E. coli and Infectious Disease Dr. Beckman was following the patient during her hospital course. Patient was started on meropenem and also Filgrastim for neutropenia. Patient's showed ( ) blood cultures that have been negative. She was discharged on ertapenem to be continued for 12 days. Patient's white count has also been trending up. Patient's vitals and physical examination ( ) at the time of discharge. PATIENT'S DISCHARGE DIAGNOSES: 1. Sepsis in neutropenic patient with blood cultures positive for Escherichia coli. Patient was on meropenem during her hospital course. 2. Metastatic breast cancer, currently on chemotherapy. 3. Neutropenia. 4. CAT scan of the abdomen showing gallbladder wall thickening without evidence of any acute cholecystitis. 5. Acute kidney injury, most likely secondary to #1, that is resolved. 6. Moderate sized hiatal hernia. 7. Hypertension. 8. Hyperlipidemia. 9. ( ). 10. Thrombocytopenia. PATIENT'S DISCHARGE MEDICATIONS: 1. Cardizem 120 mg p.o. daily. 2. Sertraline 100 mg p.o. daily. 3. Valtrex 1 tablet p.o. daily. 4. Femara 2.5 mg p.o. daily. 5. Meloxicam 15 mg p.o. daily. 6. Ibrance 100 mg p.o. daily. 7. Simvastatin 10 mg p.o. q.h.s. 8. Oxycodone 10 mg p.o. q.6 hours p.r.n. for pain. 9. Ertapenem 1 gram IV piggyback 24 hours. FOLLOWUP: The patient is advised to follow up with surgery, Dr. Alvares; PCP Dr. Gurdeep Bates and Infectious Disease Dr. Beckman. Patient has been given follow-up appointment s. The patient had Rolf ( ) to deliver her antibiotics and supplies to her home today in the evening. So the patient is being discharged home in a stable condition with instructions to have followup with the above physicians. More than 35 minutes spent towards the discharge of the patient.
== END 2017-01-01 18:02 | disposition home or self-care (01) | DRG 871 ==
LOC: EC 05:45 → 6SEL 09:52
PROVIDERS: ADMIT Hospitalist; ATTEND Hospitalist
DX: A41.51 Sepsis due to Escherichia coli [E. coli] (principal); R65.21 Severe sepsis with septic shock; N17.9 Acute kidney failure, unspecified; C79.51 Secondary malignant neoplasm of bone; J98.11 Atelectasis; K80.30 Calculus of bile duct with cholangitis, unspecified, without obstruction; D69.59 Other secondary thrombocytopenia; C50.912 Malignant neoplasm of unspecified site of left female breast; E86.0 Dehydration; D70.1 Agranulocytosis secondary to cancer chemotherapy; E78.5 Hyperlipidemia, unspecified; E87.6 Hypokalemia; F12.90 Cannabis use, unspecified, uncomplicated; I10 Essential (primary) hypertension; K21.0 Gastro-esophageal reflux disease with esophagitis; K44.9 Diaphragmatic hernia without obstruction or gangrene; F32.9 Major depressive disorder, single episode, unspecified; R74.8 Abnormal levels of other serum enzymes; G89.29 Other chronic pain; Z79.1 Long term (current) use of non-steroidal anti-inflammatories (NSAID); Z79.899 Other long term (current) drug therapy; Z87.891 Personal history of nicotine dependence; Z88.2 Allergy status to sulfonamides; Z91.040 Latex allergy status
CPT/HCPCS: 36415; 71020; 71275; 74177; 76705; 80048; 80053; 80074; 81001; 82105; 82150; 82248; 82378; 83605; 83690; 84484; 85025; 85379; 85610; 87040; 87077; 87086; 87186; 93005; 94760; 96361; 96365; 96375; 99291

== ENCOUNTER 2017-03-28 09:05 | Day surgery (SDC) | payer MEDICARE ==
[2017-03-23 11:32] VITALS: BMI 30.2
--- NOTE | 2017-03-28 08:00 | P.GSHP ---
History of Present Illness H&P Date: 03/28/17 Chief Complaint: Chronic cholecystitis with recent cholangitis Please see the history of physical dictated on 01/19. Patient's planned laparoscopic cholecystectomy was phone at that point because of pain. Her oncologist as repeated her labs recently and has cleared her for surgery at this point. She is asymptomatic presently. Past Medical History Past Medical History: Cancer, Hyperlipidemia Additional Past Medical History / Comment(s): occasional abdominal pain, Metastatic breast cancer. The patient also has had pathologic fracture of the left femur requiring ORIF and she has also received radiation therapy to her lumbar spine and back and chest. (approx 12/2015) Vertigo. Tinnitus. STATES TAKES CARDIZEM FOR IRREG. HEART RATE History of Any Multi-Drug Resistant Organisms: None Reported Past Surgical History: Orthopedic Surgery, Tonsillectomy Additional Past Surgical History / Comment(s): LEFT BREAST BX, gail placed left femur, colonoscopy, R side port. Past Anesthesia/Blood Transfusion Reactions: No Reported Reaction Past Psychological History: Depression Additional Psychological History / Comment(s): . Smoking Status: Former smoker Past Alcohol Use History: Rare Additional Past Alcohol Use History / Comment(s): LESS THAN 1/2PPD Started 1971 and quit in 2005. Past Drug Use History: Marijuana Additional Drug Use History / Comment(s): Pt states she smokes medical marijuana on occasion for pain and nausea control. - Past Family History Mother Family Medical History: Cancer Additional Family Medical History / Comment(s): BREAST Father Family Medical History: COPD Additional Family Medical History / Comment(s): Father at the age of 83yrs. He had emphysema. He had worked in the automotive industry. Medications and Allergies Home Medications Medication Instructions Recorded Confirmed Type Diltiazem HCl [Cardizem Cd] 120 mg PO DAILY 03/25/15 03/23/17 History Sertraline HCl [Zoloft] 100 mg PO DAILY 03/25/15 03/23/17 History valACYclovir [Valtrex] 500 mg PO DAILY 03/25/15 03/23/17 History Letrozole [Femara] 2.5 mg PO DAILY 12/28/16 03/23/17 History Simvastatin [Zocor] 10 mg PO HS 12/28/16 03/23/17 History oxyCODONE HCL 10 mg PO Q6HR PRN 12/28/16 03/23/17 History Ertapenem [INVanz] 1 gm IVPB Q24H #12 bag 01/01/17 03/23/17 Rx Allergies Allergy/AdvReac Type Severity Reaction Status Date / Time latex Allergy Rash/Hives Verified 03/23/17 11:35 Sulfa (Sulfonamide Allergy Rash/Hives Verified 03/23/17 11:35 Antibiotics) Surgical - Exam Physical exam: General: Well-developed, well-nourished HEENT: Normocephalic, sclerae nonicteric Abdomen: Nontender, nondistended Extremities: No edema Neuro: Alert and oriented Assessment and Plan (1) Chronic cholecystitis Narrative/Plan: Will proceed with lap scopic possible open cholecystectomy at this time. Risks of bleeding, infection, bile duct injury, biloma formation, retained bile duct stone, conversion to an open procedure, possibly aborting the procedure if abnormalities at the kayleigh hepatis are identified. Patient understands and wishes to proceed. Status: Acute
[~2017-03-28 09:05] MED LIST: DEXAMETHASONE SOD PHOSPHATE 10 MG/ML 1 ML VIAL IV ONE; HEPARIN SODIUM,PORCINE 5,000 UNIT/ML 1 ML VIAL SQ ONE; LACTATED RINGERS 1,000 ML IV SCH; ceFAZolin 2 GM in SODIUM CHLORIDE 0.9% 100 ML IVPB ONE
[2017-03-28] MEDS ORDERED: LIDOCAINE 1% 20 ML VIAL (10MG/ML) FOR IV START INTRADERMA ONE (09:32)
[2017-03-28] MEDS: ONDANSETRON 4 MG/2 ML VIAL IVP ONE ×2 (09:32→11:39)
[2017-03-28] MEDS ORDERED: MIDAZOLAM 2 MG/2 ML VIAL IVP ONE (09:38)
[2017-03-28] MEDS ORDERED: PROPOFOL 10 MG/ML 20 ML VIAL IV ONE (10:02)
[2017-03-28] MEDS ORDERED: NEOSTIGMINE 1 MG/ML 10 ML VIAL ONE (10:02)
[2017-03-28] MEDS ORDERED: GLYCOPYRROLATE 0.2 MG/ML 2 ML VIAL ONE (10:02)
[2017-03-28] MEDS ORDERED: LIDOCAINE 1% INJ 10MG/ML (20 ML MDV) ONE (10:02)
[2017-03-28] MEDS ORDERED: fentaNYL (PF) 50 MCG/ML 2 ML AMP ONE (10:02)
[2017-03-28] MEDS ORDERED: ROCURONIUM BROMIDE 10 MG/ML 10 ML VIAL IV ONE (10:02)
[2017-03-28] MEDS ORDERED: SUCCINYLCHOLINE CHLORIDE 100 MG/5 ML SYR IV ONE (10:02)
[2017-03-28] MEDS ORDERED: BUPIVACAINE (PF) 0.25% 30 ML VIAL SQ ONE (10:31)
[2017-03-28] MEDS ORDERED: LACTATED RINGERS 1,000 ML IV ONE (11:15)
[2017-03-28] MEDS ORDERED: NALOXONE 0.4 MG/ML 1 ML VIAL IV PRN (11:30)
[2017-03-28] MEDS ORDERED: HYDROcodone/APAP 5-325MG 1 EACH TAB PO PRN (11:30)
[2017-03-28 11:32] VITALS: TEMP 97.6
--- NOTE | 2017-03-28 11:33 | P.OP ---
Date of Procedure: 03/28/17 Preoperative Diagnosis: Postoperative Diagnosis: Procedure(s) Performed: PREOPERATIVE DIAGNOSIS: Chronic cholecystitis POSTOPERATIVE DIAGNOSIS: Same PROCEDURE: Laparoscopic cholecystectomy SURGEON: Giorgio EBL: Minimal see anesthesia record ANESTHESIA: Gen. COMPLICATIONS: None OPERATIVE PROCEDURE: The patient was brought and placed on the operating room table in the supine position. The patient was placed under general anesthesia at that time. The abdomen was prepped and draped in the usual sterile fashion. A small vertical infraumbilical incision was made. The fascia was grasped with the Connie forceps. The fascia was retracted anteriorly. The Veress needle was advanced into the peritoneal cavity. The saline drop test was normal. Insufflation took place up to 15 mmHg. A 5 mm optical trocar was advanced and the peritoneal cavity. 2 additional 5 mm trochars were placed in the right upper quadrant under direct visualization. A 10 mm trocar was advanced into the epigastric incision site. There were some adhesions between the omentum and the gallbladder that were lysed using both sharp dissection cautery and a small clip was used on a small vessel. The gallbladder was retracted superiorly and laterally. The peritoneum overlying the infundibulum was bluntly dissected. The patient's cystic duct was visualized. The junction between the cystic duct common and hepatic duct was identified. There was no evidence of malignancy in the kayleigh hepatis. The cystic duct was then divided after placement of 3 10 mm clips on the patient's side and one on the specimen side. The cystic artery was identified and clipped as well. A small vessel was seen along the gallbladder fossa and clipped as well. The gallbladder was then removed from the liver bed using electrocautery. The gallbladder was then removed from the epigastric trocar site with an Endo Catch bag. The gallbladder fossa was irrigated with saline. There was no evidence of any bleeding or biliary drainage seen. The trochars were then removed. The fascia at the 10 millimeter site was closed using a Ulises-Butch 0 Vicryl stitch. The skin at all 4 sites was closed using a 4-0 Monocryl stitch. At the end of this procedure the sponge and needle counts were correct. DISPOSITION: Stable to the recovery room Implants: Indications for Procedure: Operative Findings: Description of Procedure:
[2017-03-28] MEDS: HYDROmorphone 1 MG/ML 1 ML SYRINGE IVP PRN ×4 (11:39→12:40)
[2017-03-28 13:13] VITALS: BP 127/56; PULSE 84; RESP 18
== END 2017-03-28 13:31 | disposition home or self-care (01) ==
LOC: OR 09:05
PROVIDERS: ATTEND Surgery
DX: K80.12 Calculus of gallbladder with acute and chronic cholecystitis without obstruction (principal); E78.5 Hyperlipidemia, unspecified; Z85.3 Personal history of malignant neoplasm of breast; F32.9 Major depressive disorder, single episode, unspecified; Z87.891 Personal history of nicotine dependence; Z79.2 Long term (current) use of antibiotics; Z79.811 Long term (current) use of aromatase inhibitors; Z79.899 Other long term (current) drug therapy; Z88.2 Allergy status to sulfonamides; Z91.040 Latex allergy status; K66.0 Peritoneal adhesions (postprocedural) (postinfection)
CPT/HCPCS: 88304; 47562; J2250; J1644; J1100; J2710; J0690; J2405; J2001; J3010; J1170; J0330; J2704

== ENCOUNTER → 2018-01-26 | Outpatient (CLI) | payer MEDICARE ==
--- NOTE | 2018-01-28 09:59 | PE ---
Nuclear medicine PET/CT HISTORY: Metastatic breast carcinoma, subsequent Patient received 9.5 mCi F-18 FDG intravenously in delayed scanning was performed from the skull base to the mid thighs. Localization and attenuation correction CT scan was performed. Exam is correlated prior nuclear medicine PET/CT 08/25/2017 Neck and chest: Right-sided thyroid nodule shows associated hypermetabolic uptake, SUV 4.7. Left fortino st shows skin thickening with subcutaneous high attenuation, probable calcification as on prior in th e periareolar location, subcutaneous hypermetabolic uptake is present, SUV is 4.1. No evident axillar y or mediastinal, no hilar uptake. There is no evident lung mass. Right-sided Port-A-Cath is present, distal tip of the catheter is near the cavoatrial junction. Abdomen pelvis: There is no evident liver mass. Patient is post cholecystectomy. No suspicious hyperm etabolic uptake. No retroperitoneal adenopathy. Osseous structures: Sclerotic density involving the proximal left femur is again seen, hypermetabolic uptake is present associated with the patient's postop change. Right ilium shows a focus of hypermet abolic uptake measuring 4.7 cm posteriorly, areas of uptake at facet joints and posterior elements on the right in the lower lumbar spine shows SUV 4.2 mild uptake present in the left ilium. Areas of de creased attenuation, SUV only 2.4-2.6 on the left ilium. Possible abnormal uptake near the anterior a spect of the C1-C2 articulation. Left ischium shows a similar uptake. IMPRESSION: Metastatic disease to the bone shows a similar appearance. Uptake within the left breast is similar. Thyroid nodule shows increased uptake on the right.
== END | disposition home or self-care (01) ==
LOC: RADPETMAIN 09:37
PROVIDERS: ATTEND Radiology Radiation Oncology
DX: C50.412 Malignant neoplasm of upper-outer quadrant of left female breast (principal); C79.51 Secondary malignant neoplasm of bone; E04.1 Nontoxic single thyroid nodule
CPT/HCPCS: 78815; A9552

== ENCOUNTER → 2018-02-12 | Outpatient (CLI) | payer MEDICARE ==
--- NOTE | 2018-02-13 08:52 | US ---
EXAMINATION TYPE: US thyroid st tissue head/neck DATE OF EXAM: 02/12/2018 COMPARISON: NONE CLINICAL HISTORY: E04.1 Thyroid nodule,R93.8 abnormal pet scan. Abnormal PET scan, right thyroid nodu le GLAND SIZE: Right Lobe: 4.3 x 1.4 x 2.1 cm Overall Parenchyma: heterogenous Left Lobe: 4.3 x 1.9 x 2.1 cm Overall Parenchyma: heterogeneous Isthmus Thickness: 0.4 cm NODULES RIGHT: # of nodules measured on right: 3 1. 1.4 X 0.8 x 1.2 cm hypoechoic solid nodule at the mid pole with well-defined margins. This nodu le is wider than tall and shows intranodular vascularity. Prior size: no prior 2. 1.2 X 0.5 x 0.9 cm hypoechoic solid nodule at the lower pole with well-defined margins. . This n odule is wider than tall and shows intranodular vascularity. Prior size: no prior 3. 0.8 X 0.7 x 0.8 cm complex nodule at the lower pole with well-defined margins; interrupted periph eral calcification. This nodule is wider than tall and shows intranodular vascularity. Prior size: no prior LEFT: # of nodules measured on left: 2 1. 0.9 X 0.7 x 0.7 cm cystic nodule at the upper pole with well-defined margins. This nodule is wi tiffany than tall and shows no intranodular vascularity. Prior size: no prior 2. 2.3 X 1.7 x 1.6 cm mixed nodule at the lower pole with well-defined margins. This nodule is wider than tall and shows intranodular vascularity. Prior size: no prior ISTHMUS: # of nodules measured in the isthmus: 0. Bilateral neck scanned, no evidence of lymphadenopathy. Heterogeneous gland. Largest 3 nodules measured right lobe. Largest 2 nodules measured left lobe IMPRESSION: 1. Large nodules bilateral thyroid lobes.
== END | disposition home or self-care (01) ==
LOC: RADUSWWP 16:19
PROVIDERS: ATTEND Radiology Radiation Oncology
DX: E04.2 Nontoxic multinodular goiter (principal)
CPT/HCPCS: 76536

== ENCOUNTER 2018-05-30 09:18 | Day surgery (SDC) | payer MEDICARE ==
[2018-05-30 09:53] VITALS: RESP 16; TEMP 98.5
--- NOTE | 2018-05-30 11:44 | US ---
ULTRASOUND GUIDED FNA THYROID BIOPSY: CLINICAL HISTORY: 2 right thyroid nodules and one left thyroid nodule requested for biopsy FINDINGS: The procedure was explained to the patient. The risks, complications, benefits and alternatives were discussed and any questions were answered. Informed consent was obtained. Patient was placed supin e on the ultrasound table and prepped and draped in the usual sterile fashion. Utilizing a 25 gauge needle, five passes were made into the 1.2 cm lower pole right thyroid nodule. The patient experience d a vasovagal reaction and the procedure was discontinued. Patient was stable throughout the procedure. Pathology is pending. All elements of maximal barrier technique were utilized. IMPRESSION: 1. Successful ultrasound guided FNA thyroid biopsy lower pole 1.2 cm nodule. Patient experienced a v asovagal reaction and the procedure was discontinued. The patient quickly achieved a normal blood pre ssure and was discharged in excellent condition.
[2018-05-30 11:46] VITALS: BP 134/65; PULSE 93
== END 2018-05-30 11:45 | disposition home or self-care (01) ==
LOC: RADPROMAIN 09:18
PROVIDERS: ATTEND Radiology Radiation Oncology
DX: E04.2 Nontoxic multinodular goiter (principal); Y84.8 Other medical procedures as the cause of abnormal reaction of the patient, or of later complication, without mention of misadventure at the time of the procedure; Y92.239 Unspecified place in hospital as the place of occurrence of the external cause; R55 Syncope and collapse
CPT/HCPCS: 10022; 76942; 88173; 88305

== ENCOUNTER → 2018-11-01 | Outpatient (CLI) | payer MEDICARE ==
[~2018-11-01] MED LIST changes: -DEXAMETHASONE SOD PHOSPHATE 10 MG/ML 1 ML VIAL IV ONE; -HEPARIN SODIUM,PORCINE 5,000 UNIT/ML 1 ML VIAL SQ ONE; -LACTATED RINGERS 1,000 ML IV SCH; +SODIUM CHLORIDE 0.9% 500 ML 500 ML in EMPTY BAG 1 BAG IV PRN; +ZOLEDRONIC ACID 4 MG in SODIUM CHLORIDE 0.9% 100 ML IV NR; -ceFAZolin 2 GM in SODIUM CHLORIDE 0.9% 100 ML IVPB ONE
[2018-11-01 14:11] VITALS: BP 130/83; PULSE 102; RESP 16; TEMP 97.6
[2018-11-01 14:30] LABS: Anisocytosis Slight; Basophils % (A) 1 %; Eosinophils # (A) 0.1 k/uL (0-0.7); Eosinophils % (A) 4 %; HCT 31.3 % (34.0-46.0); HGB 10.9 gm/dL (11.4-16.0); Lymphocytes # (A) 0.2 k/uL (1.0-4.8); Lymphocytes % (A) 13 %; MCH 37.5 pg (25.0-35.0); MCHC 34.8 g/dL (31.0-37.0); MCV 107.7 fL (80.0-100.0); Macrocytosis Marked; Mean Platelet Volume 7.4; Monocytes % (A) 3 %; Neutrophils # (A) 1.4 k/uL (1.3-7.7); Neutrophils % (A) 77 %; Poikilocytosis Slight; RBC 2.91 m/uL (3.80-5.40); RDW 16.3 % (11.5-15.5); WBC 1.8 k/uL (3.8-10.6)
[2018-11-01 14:31] LABS: Platelet Count 180 k/uL (150-450)
[2018-11-01 15:17] LABS: Albumin 4.5 g/dL (3.5-5.0); Calcium 9.6 mg/dL (8.4-10.2); Potassium 4.5 mmol/L (3.5-5.1); Total Bilirubin 0.7 mg/dL (0.2-1.3); Total Protein 7.1 g/dL (6.3-8.2)
== END | disposition home or self-care (01) ==
LOC: PROCWHC3 13:29
PROVIDERS: ATTEND Internal Medicine Medical Oncology
DX: C50.412 Malignant neoplasm of upper-outer quadrant of left female breast (principal); C79.52 Secondary malignant neoplasm of bone marrow
CPT/HCPCS: 80053; 85025; 96365; 96523; J1642; J3489

== ENCOUNTER → 2018-11-16 | Outpatient (CLI) | payer MEDICARE ==
--- NOTE | 2018-11-17 14:35 | PE ---
Nuclear medicine PET/CT HISTORY: Malignant neoplasm of thyroid gland, initial, breast carcinoma, subsequent Patient received 13 mCi F-18 FDG intravenously in delayed scanning was performed through the whole prakash dy. Localization and attenuation correction CT scan was performed. Comparison to prior nuclear medicine PET/CT 01/26/2018, ultrasound thyroid 02/12/2018 Neck and chest: Uptake at the level of the vocal cords is likely physiologic. Right lobe of the thyro id gland shows hypermetabolic uptake, SUV is 4.5. There is some uptake noted at the anterior left cedric ast, some associated soft tissue is present, SUV is 3.2. No evident lung mass. There is right pectora l port present via right jugular approach which courses into the superior vena cava. ABDOMEN: Patient is post cholecystectomy. No evident liver mass or suspicious hypermetabolic uptake, no retroperitoneal adenopathy. There calcifications associated with the uterus likely due to fibroids . Urinary bladder is not distended. No pelvic adenopathy is hypermetabolic uptake. Osseous structures: There is hypermetabolic uptake noted within the left hip, streak artifact somewha t limits evaluation. SUV is 14 at the medial femoral head extends somewhat circumferentially the ante rior aspect. Patient's EMR on the left shows a sclerotic focus with hypermetabolic uptake, SUV 6. Too numerous to count sclerotic foci are scattered within the skeleton is similar distribution, exten t to prior exam with similar appearance. Degenerative changes are noted in the peripheral lower extre mities. IMPRESSION: Metastatic disease to bone. Hypermetabolic right thyroid gland nodule again noted, left b reast uptake again noted.
== END | disposition home or self-care (01) ==
LOC: RADPETMAIN 12:34
PROVIDERS: ATTEND Radiology Radiation Oncology
DX: C79.51 Secondary malignant neoplasm of bone (principal); C50.412 Malignant neoplasm of upper-outer quadrant of left female breast; C41.2 Malignant neoplasm of vertebral column; C73 Malignant neoplasm of thyroid gland; Z92.3 Personal history of irradiation
CPT/HCPCS: 78815; A9552

== ENCOUNTER → 2019-01-03 | Outpatient (CLI) | payer MEDICARE ==
[2019-01-03 14:52] VITALS: BP 131/80; PULSE 105; RESP 16; TEMP 98.2
[2019-01-03 15:12] LABS: Anisocytosis Slight; Basophils % (A) 1 %; Eosinophils % (A) 2 %; HCT 30.9 % (34.0-46.0); HGB 10.3 gm/dL (11.4-16.0); Lymphocytes # (A) 0.1 k/uL (1.0-4.8); Lymphocytes % (A) 7 %; MCHC 33.5 g/dL (31.0-37.0); MCV 104.6 fL (80.0-100.0); Macrocytosis Moderate; Mean Platelet Volume 7.8; Monocytes # (A) 0.1 k/uL (0-1.0); Monocytes % (A) 5 %; Neutrophils # (A) 1.6 k/uL (1.3-7.7); Neutrophils % (A) 85 %; RBC 2.95 m/uL (3.80-5.40); RDW 17.5 % (11.5-15.5); WBC 1.9 k/uL (3.8-10.6)
[2019-01-03 15:17] LABS: Platelet Count 75 k/uL (150-450)
[2019-01-03 15:20] LABS: Albumin 4.4 g/dL (3.5-5.0); Calcium 8.6 mg/dL (8.4-10.2); Potassium 3.8 mmol/L (3.5-5.1); Total Bilirubin 0.8 mg/dL (0.2-1.3)
== END | disposition home or self-care (01) ==
LOC: PROCWHC3 14:02
DX: C50.412 Malignant neoplasm of upper-outer quadrant of left female breast (principal); C79.52 Secondary malignant neoplasm of bone marrow
CPT/HCPCS: 80053; 86300 ×2; 85025; 96365; 36591; J1642; J3489

== ENCOUNTER → 2019-03-18 | Outpatient (CLI) | payer MEDICARE ==
[~2019-03-18] MED LIST changes: +ZOLEDRONIC ACID 4 MG in SODIUM CHLORIDE 0.9% 100 ML IV ONE
[2019-03-18 14:35] VITALS: BP 117/56; PULSE 97; RESP 16; TEMP 98.2
[2019-03-18 15:20] LABS: Anisocytosis Slight; Basophils % (A) 1 %; Eosinophils % (A) 2 %; HCT 30.5 % (34.0-46.0); HGB 10.5 gm/dL (11.4-16.0); Lymphocytes # (A) 0.1 k/uL (1.0-4.8); Lymphocytes % (A) 12 %; MCH 36.8 pg (25.0-35.0); MCHC 34.3 g/dL (31.0-37.0); MCV 107.2 fL (80.0-100.0); Macrocytosis Marked; Mean Platelet Volume 7.3; Monocytes % (A) 2 %; Neutrophils # (A) 0.9 k/uL (1.3-7.7); Neutrophils % (A) 82 %; Platelet Count 141 k/uL (150-450); RBC 2.84 m/uL (3.80-5.40)
[2019-03-18 15:28] LABS: WBC 1.1 k/uL (3.8-10.6)
[2019-03-18 15:47] LABS: Anisocytosis (M) Present; Hypochromasia (M) Present; Poikilocytosis (M) Present
[2019-03-18 16:01] LABS: Albumin 4.1 g/dL (3.5-5.0); Calcium 9.4 mg/dL (8.4-10.2); Potassium 4.4 mmol/L (3.5-5.1); Total Bilirubin 0.6 mg/dL (0.2-1.3); Total Protein 6.9 g/dL (6.3-8.2)
== END | disposition home or self-care (01) ==
LOC: PROCWHC3 14:13
PROVIDERS: ATTEND Internal Medicine Medical Oncology
DX: C50.412 Malignant neoplasm of upper-outer quadrant of left female breast (principal); C79.52 Secondary malignant neoplasm of bone marrow
CPT/HCPCS: 80053; 85025; 96365; 36591; J1642; J3489

== ENCOUNTER → 2019-04-05 | Outpatient (CLI) | payer MEDICARE ==
--- NOTE | 2019-04-07 07:36 | PE ---
EXAMINATION TYPE: PET CT fusion skull to thigh DATE OF EXAM: 04/05/2019 COMPARISON: Prior PET/CT November 16, 2018 HISTORY: Left-sided breast cancer 2014 with osseous metastatic disease completed radiation treatment in November 09, 2018 TECHNIQUE: Following the intravenous administration of 7.74 mCi of F-18 FDG, whole body images are p erformed from the skull base to the midthigh. Images are reviewed on the computer in the coronal, ax ial, and sagittal planes. Reconstructed rotating images are created on independent workstation and r eviewed on the computer. A noncontrast CT is performed in conjunction with the PET scan. SCAN: Subsequent Scan FINDINGS: Suboptimal due to slightly more prominent background hypermetabolic uptake on current study . SKULL BASE AND NECK: No definitive new areas of suspicious hypermetabolic uptake. Some heterogeneity throughout thyroid gland with persistent suspicious hypermetabolic focus right thyroid lobe axial im age 50, max SUV is 3.66. This lesion was sampled May 30, 2018. Correlate clinically. Symmetric up take at level of vocal cords redemonstrated. CHEST, MEDIASTINUM, AND HILAR REGION: Persistent dystrophic calcification lateral left breast at leve l of nipple axis image 79 with some soft tissue and mild hypermetabolic uptake, no significant change from prior. The max SUV is 2.09. No new areas of suspicious hypermetabolic uptake in the thorax. ABDOMEN AND PELVIS: Suspicious new hypermetabolic foci left hepatic dome axial image 103 nearly 1.0 c m in size, max SUV is 5.12 of the left lesion. No definitive CT correlate. There is new soft tissue hypermetabolic nodule measuring 9 mm intraperitoneal cavity posteriorly uppe r abdomen axial image 115 with max SUV of 4.28. OSSEOUS STRUCTURES: New hypermetabolic sclerotic focus involving left L1 vertebra with sclerotic focus axial image 130. The max SUV is 5.02. Persistent hypermetabolic uptake bilateral hip joints with internally fixed heal ing pathologic fracture left proximal femur redemonstrated. Multiple additional sclerotic foci throug hout the osseous structures consistent with osseous metastatic disease redemonstrated throughout the entire spine and pelvis. OTHER CT: Mild to moderate calcified plaque bilateral carotid bulb level. Heterogeneous multinodular thyroid suspected. Stable right internal jugular central venous catheter terminating at cavoatrial junction. Cholecystectomy clips. Calcified fibroid uterus suspected. Prominent sclerotic L3 lesion again seen. IMPRESSION: Neoplastic progression with suspected new liver and upper abdominal lesions. Osseous meta static disease redemonstrated with suspected new hypermetabolic L1 lesion.
== END | disposition home or self-care (01) ==
LOC: RADPETMAIN 13:21
PROVIDERS: ATTEND Radiology Radiation Oncology
DX: C50.412 Malignant neoplasm of upper-outer quadrant of left female breast (principal); C79.51 Secondary malignant neoplasm of bone; Z92.3 Personal history of irradiation; Z79.811 Long term (current) use of aromatase inhibitors
CPT/HCPCS: 78815; A9552

== ENCOUNTER 2019-06-24 08:08 | Inpatient (IN) | payer MEDICARE ==
[2019-06-24] MEDS ORDERED: ONDANSETRON 4 MG/2 ML VIAL IVP STA (08:35)
[2019-06-24] MEDS ORDERED: SODIUM CHLORIDE 0.9% 1,000 ML IV STA (08:35)
[2019-06-24 09:34] LABS: Anisocytosis Slight; Basophils % (A) 0 %; Eosinophils % (A) 0 %; HCT 30.4 % (34.0-46.0); HGB 10.6 gm/dL (11.4-16.0); Lymphocytes # (A) 0.1 k/uL (1.0-4.8); Lymphocytes % (A) 8 %; MCH 37.3 pg (25.0-35.0); MCHC 34.9 g/dL (31.0-37.0); MCV 106.8 fL (80.0-100.0); Macrocytosis Moderate; Mean Platelet Volume 6.9; Monocytes % (A) 3 %; Neutrophils # (A) 1.6 k/uL (1.3-7.7); Neutrophils % (A) 89 %; Platelet Count 101 k/uL (150-450); Poikilocytosis Slight; RBC 2.85 m/uL (3.80-5.40); WBC 1.8 k/uL (3.8-10.6)
[2019-06-24 09:50] LABS: ALT 18 U/L (9-52); AST 35 U/L (14-36); African American GFR (CKD) 59 (>60 ml/min/1.73 sqM); Alkaline Phosphatase 63 U/L (38-126); Anion Gap 9 mmol/L; Blood Urea Nitrogen 20 mg/dL (7-17); Calcium 8.5 mg/dL (8.4-10.2); Carbon Dioxide 22 mmol/L (22-30); Chloride 111 mmol/L (98-107); Glucose 122 mg/dL (74-99); Non-African American GFR(CKD) 51 (>60 ml/min/1.73 sqM); Sodium 142 mmol/L (137-145); Total Bilirubin 1.5 mg/dL (0.2-1.3); Total Protein 6.7 g/dL (6.3-8.2)
[2019-06-24 10:02] LABS: Prothrombin Time 11.1 sec (9.0-12.0)
--- NOTE | 2019-06-24 10:05 | XR ---
EXAMINATION TYPE: XR chest 2V DATE OF EXAM: 06/24/2019 COMPARISON: Chest x-ray 12/29/2016 HISTORY: Cough and pain. History of metastatic breast cancer. TECHNIQUE: Frontal and lateral views of the chest are obtained. FINDINGS: Stable right internal jugular Mediport catheter. There is retrocardiac opacity. No pleural effusion or pneumothorax is seen bilaterally. The cardiac silhouette size is within normal limits. Sc attered sclerotic foci consistent with known osseous metastatic disease.. Cholecystectomy clips are n oted. IMPRESSION: Patchy retrocardiac acute infiltrate and/or atelectasis seen best on lateral view.
[2019-06-24 10:06] LABS: Potassium 4.1 mmol/L (3.5-5.1)
[2019-06-24 10:13] LABS: Appearance,Urine Clear (Clear); Bacteria,Urine Rare /hpf; Bilirubin,Urine Negative (Negative); Blood,Urine Small (Negative); Color,Urine Yellow; Glucose,Urine (UA) 2+ (Negative); Hyaline Casts,Urine 1 /lpf (0-2); Leukocyte Esterase,Urine Negative (Negative); Mucus,Urine Occasional /hpf; Nitrite,Urine Negative (Negative); Protein,Urine 1+ (Negative); RBC,Urine 5 /hpf (0-5); Specific Gravity,Urine 1.019 (1.001-1.035); Squamous Epithelial Cell,Urine <1 /hpf (0-4); WBC,Urine 4 /hpf (0-5)
[2019-06-24 10:20] LABS: Ketones,Urine 2+ (Negative)
[2019-06-24 10:27] LABS: Partial Thromboplastin Time 19.4 sec (22.0-30.0)
--- NOTE | 2019-06-24 10:59 | CT ---
EXAMINATION TYPE: CT abdomen pelvis w con DATE OF EXAM: 06/24/2019 COMPARISON: 04/05/2019 and 11/16/2018 HISTORY: 64-year-old female LLQ pain. Patient with history of breast cancer with last radiation thera py June 2018, currently on oral chemotherapy. TECHNIQUE: Contiguous axial scanning of the abdomen and pelvis following administration of 100 ml Iso pratima 300 IV contrast. Delayed images through the kidneys and coronal/sagittal reconstructions perform ed. CT DLP: 826.7 mGycm Automated exposure control for dose reduction was used. FINDINGS: Heart normal size without pericardial effusion. Lung bases clear without pleural effusion. Approximately 6 suspicious hepatic lesions. 2 appear to have been faintly present in the left hepatic dome on 04/05/2019. Some progression is suspected, for example, the dominant left hepatic dome lesion measures 1.8 cm (estimated 1.6 cm, previously. The lack of IV contrast on the prior exam takes direc t comparison difficult. Portal venous system is patent. No biliary ductal dilatation. Cholecystectomy clips. Adrenal glands, kidneys, spleen, atrophic pancreas show no gross abnormality. No dilated small bowel, free fluid, or free air. No mesenteric or retroperitoneal lymphadenopathy. Normal appendix. Scattered [id number] stool. Sigmoid diverticulosis. There is moderate circumferential wall thic kening spanning from the proximal to mid sigmoid colon with pericolonic fat stranding. Mild adjacent right-sided pelvic free fluid. Reactive. Moderate circumferential bladder wall thickening. Bulky, anteverted fibroid uterus. Ovaries not clearly delineated from adjacent bowel loops. No pelvic lymphadenopathy seen. Bones: Redemonstrated sclerotic bone metastases. End-stage degenerative change right hip and end-stag e degenerative change left hip with extensive bony remodeling along the acetabular roof and superior subluxation of the left hip joint. A screw tip contacts both the femoral head and acetabular articula r surface. Overall vertebral body heights are preserved. Grade 1 anterolisthesis L4-L5. IMPRESSION: 1. MODERATE INFLAMMATORY WALL THICKENING PROXIMAL TO MID SIGMOID COLON AND ADJACENT MILD FREE FLUID. DIFFERENTIAL CONSIDERATIONS INCLUDE MODERATE ACUTE DIVERTICULITIS OR OTHER NONSPECIFIC INFECTIOUS/INF LAMMATORY COLITIS. 2. NO ABSCESS OR FREE AIR. 3. APPROXIMATELY 6 SUSPICIOUS HEPATIC LESIONS. 2 DISCRETE LESIONS WERE NOTED ON THE PATIENT'S 04/05/20 19 PET/CT. SOME INTERVAL NEOPLASTIC PROGRESSION FROM 04/05/2019 IS DIFFICULT TO EXCLUDE. 4. MODERATE CIRCUMFERENTIAL BLADDER WALL THICKENING. CORRELATE FOR POSSIBLE CYSTITIS. 5. STABLE DIFFUSE SCLEROTIC OSSEOUS METASTATIC DISEASE.
[2019-06-24] MEDS ORDERED: metroNIDAZOLE-NS PMX 500 MG in SALINE 1 100ML.BAG IVPB STA (11:01)
[2019-06-24] MEDS ORDERED: NALOXONE 0.4 MG/ML 1 ML VIAL IV PRN ×2 (11:18→14:02)
--- NOTE | 2019-06-24 11:18 | ED ---
General Adult HPI - General Chief complaint: Nausea/Vomiting/Diarrhea Stated complaint: ADRYAN,Nausea Time Seen by Provider: 06/24/19 08:15 Source: patient, EMS Mode of arrival: EMS Limitations: no limitations - History of Present Illness Initial comments: The patient is a 64-year-old female past history of metastatic breast cancer who presents emergency room with reported nausea and vomiting. She states that she will have these symptoms once per week for the past month. It woke her for several hours in the day and then reside on their own. She states that she had nausea and vomiting which was onset approximately 18 hours ago which has been persistent. She's had multiple episodes of vomiting and is unable to tolerate anything by mouth. She has also developed left lower quadrant abdominal pain with constipation. Denies hematemesis, melanotic stools or hematochezia. Reports to a fever of 99. Admits to chills. No sick contacts or recent travel. Denies eating any tainted foods. She is currently on Femara and Ibrance. She sees Dr. Caldwell and Dr. Thurman for her radiation and chemo. Last radiation was a year ago. She also admits to a slight cough with nasal congestion. Denies any headaches or visual changes. No back pain or flank pain. Denies any changes in her urination. There are no other alleviating, precipitating or modifying factors - Related Data Home Medications Medication Instructions Recorded Confirmed Diltiazem HCl [Cardizem CD] 120 mg PO DAILY@139903/25/15 06/24/19 Sertraline HCl [Zoloft] 100 mg PO DAILY@139903/25/15 06/24/19 valACYclovir [Valtrex] 500 mg PO DAILY@139903/25/15 06/24/19 Letrozole [Femara] 2.5 mg PO DAILY@139912/28/16 06/24/19 Simvastatin [Zocor] 10 mg PO DAILY@1400 12/28/16 06/24/19 Meloxicam 15 mg PO DAILY@1400 08/28/17 06/24/19 Palbociclib [Ibrance] 100 mg PO DIRECTED 08/28/17 06/24/19 Melatonin 10 mg PO HS 06/24/19 06/24/19 oxyCODONE HCL [oxyCODONE HCL (IR)] 15 mg PO Q2H PRN 06/24/19 06/24/19 Previous Rx's Medication Instructions Recorded Cefpodoxime Proxetil [Vantin] 200 mg PO Q12HR #8 tab 06/27/19 Ondansetron Odt [Zofran Odt] 8 mg SUBLINGUAL Q8HR PRN #30 tab 06/27/19 Pantoprazole [Protonix] 40 mg PO DAILY #30 tablet. 06/27/19 metroNIDAZOLE [Flagyl] 500 mg PO TID #12 tab 06/27/19 Allergies Allergy/AdvReac Type Severity Reaction Status Date / Time latex Allergy Rash/Hives Verified 06/24/19 08:53 Sulfa (Sulfonamide Allergy Rash/Hives Verified 06/24/19 08:53 Antibiotics) Review of Systems ROS Statement: Those systems with pertinent positive or pertinent negative responses have been documented in the HPI. ROS Other: All systems not noted in ROS Statement are negative. Past Medical History Past Medical History: Cancer, Hyperlipidemia, Osteoarthritis (OA) Additional Past Medical History / Comment(s): Metastatic breast cancer. Vertigo. Tinnitus, thyroid nodules both sides per pt. History of Any Multi-Drug Resistant Organisms: None Reported Past Surgical History: Breast Surgery, Cholecystectomy, Orthopedic Surgery, Tonsillectomy Additional Past Surgical History / Comment(s): LEFT BREAST BX, gail placed left femur, colonoscopy, R side port. Past Anesthesia/Blood Transfusion Reactions: No Reported Reaction Past Psychological History: Depression Smoking Status: Former smoker - Past Family History Mother Family Medical History: Cancer Additional Family Medical History / Comment(s): BREAST Father Family Medical History: COPD Additional Family Medical History / Comment(s): Father at the age of 83yrs. He had emphysema. He had worked in the automotive industry. General Exam Limitations: no limitations General appearance: alert, in no apparent distress Head exam: Present: atraumatic, normocephalic, normal inspection Eye exam: Present: normal appearance, PERRL, EOMI. Absent: scleral icterus, conjunctival injection, periorbital swelling ENT exam: Present: normal exam, mucous membranes dry Neck exam: Present: normal inspection. Absent: tenderness, meningismus, lymphadenopathy Respiratory exam: Present: normal lung sounds bilaterally. Absent: respiratory distress, wheezes, rales, rhonchi, stridor Cardiovascular Exam: Present: regular rate, normal rhythm, normal heart sounds. Absent: systolic murmur, diastolic murmur, rubs, gallop, clicks GI/Abdominal exam: Present: soft, tenderness (left lower quadrant), normal bowel sounds. Absent: distended, guarding, rebound, rigid Extremities exam: Present: normal inspection, full ROM, normal capillary refill. Absent: tenderness, pedal edema, joint swelling, calf tenderness Back exam: Present: normal inspection Neurological exam: Present: alert, oriented X3, CN II-XII intact Psychiatric exam: Present: normal affect, normal mood Skin exam: Present: warm, dry, intact, normal color. Absent: rash Course Vital Signs 06/24/19 06/24/19 06/24/19 08:16 08:30 09:00 Temperature 99 F Pulse Rate 72 Respiratory 20 Rate Blood Pressure 179/92 179/92 171/99 O2 Sat by Pulse 97 99 97 Oximetry 06/24/19 06/24/19 06/24/19 09:30 09:38 11:18 Temperature Pulse Rate 85 Respiratory 20 18 Rate Blood Pressure 157/89 149/75 O2 Sat by Pulse 99 Oximetry Medical Decision Making - Medical Decision Making Upon arrival the patient is placed into room 9. A thorough history and physical exam is performed. We did obtain IV access. The patient is given a liter bolus of normal saline. She is also given 4 milligrams of Zofran. We recommended laboratory studies. The patient is a pancytopenia. White blood count 1.8. Hemoccult been 10.6. Platelets 101. CMP shows a BUN of 20, creatinine 1.1. UA shows 2+ ketones, rare bacteria and occasional mucous. Chest x-ray demonstrates a patchy retrocardiac acute infiltrate or atelectasis. CT of the patient's abdomen and pelvis demonstrates moderate inflammatory wall thickening proximal to mid sigmoid colon and adjacent mild free fluid. Differential includes moderate acute diverticulitis or other nonspecific infectious inflammatory colitis. 6 suspicious hepatic lesions. Moderate cervical potential bladder wall thickening. Stable diffuse sclerotic osseous metastasis. I discussed his results with the patient. She has not had any further episodes of nausea and vomiting however still feels weak. I gave the patient a dose of Rocephin and Flagyl. She'll be admitted to Dr. Woods. She will continue to receive fluid hydration and antiemetics. The patient remained in stable condition awaiting a bed on the floor - Lab Data Result diagrams: 12/06/19 07:46 06/27/19 07:46 Lab Results 06/24/19 06/24/19 06/24/19 Range/Units 09:07 09:07 09:07 WBC 1.8 L (3.8-10.6) k/uL RBC 2.85 L (3.80-5.40) m/uL Hgb 10.6 L (11.4-16.0) gm/dL Hct 30.4 L (34.0-46.0) % MCV 106.8 H (80.0-100.0) fL MCH 37.3 H (25.0-35.0) pg MCHC 34.9 (31.0-37.0) g/dL RDW 16.0 H (11.5-15.5) % Plt Count 101 L (150-450) k/uL Neutrophils % 89 % Lymphocytes % 8 % Monocytes % 3 % Eosinophils % 0 % Basophils % 0 % Neutrophils # 1.6 (1.3-7.7) k/uL Lymphocytes # 0.1 L (1.0-4.8) k/uL Monocytes # 0.0 (0-1.0) k/uL Eosinophils # 0.0 (0-0.7) k/uL Basophils # 0.0 (0-0.2) k/uL Poikilocytosis Slight Anisocytosis Slight Macrocytosis Moderate PT (9.0-12.0) sec INR (<1.2) APTT (22.0-30.0) sec Sodium 142 (137-145) mmol/L Potassium 4.1 (3.5-5.1) mmol/L Chloride 111 H (98-107) mmol/L Carbon Dioxide 22 (22-30) mmol/L Anion Gap 9 mmol/L BUN 20 H (7-17) mg/dL Creatinine 1.14 H (0.52-1.04) mg/dL Est GFR (CKD-EPI)AfAm 59 (>60 ml/min/1.73 sqM) Est GFR (CKD-EPI)NonAf 51 (>60 ml/min/1.73 sqM) Glucose 122 H (74-99) mg/dL Plasma Lactic Acid Darvin 0.8 (0.7-2.0) mmol/L Calcium 8.5 (8.4-10.2) mg/dL Magnesium (1.6-2.3) mg/dL Total Bilirubin 1.5 H (0.2-1.3) mg/dL AST 35 (14-36) U/L ALT 18 (9-52) U/L Alkaline Phosphatase 63 (38-126) U/L Total Protein 6.7 (6.3-8.2) g/dL Albumin 4.0 (3.5-5.0) g/dL Lipase <10 L (23-300) U/L TSH 0.990 (0.465-4.680) mIU/L Urine Color Urine Appearance (Clear) Urine pH (5.0-8.0) Ur Specific Saxon (1.001-1.035) Urine Protein (Negative) Urine Glucose (UA) (Negative) Urine Ketones (Negative) Urine Blood (Negative) Urine Nitrite (Negative) Urine Bilirubin (Negative) Urine Urobilinogen (<2.0) mg/dL Ur Leukocyte Esterase (Negative) Urine RBC (0-5) /hpf Urine WBC (0-5) /hpf Ur Squamous Epith Cells (0-4) /hpf Urine Bacteria (None) /hpf Hyaline Casts (0-2) /lpf Urine Mucus (None) /hpf 06/24/19 06/24/19 06/24/19 Range/Units 09:07 09:07 09:30 WBC (3.8-10.6) k/uL RBC (3.80-5.40) m/uL Hgb (11.4-16.0) gm/dL Hct (34.0-46.0) % MCV (80.0-100.0) fL MCH (25.0-35.0) pg MCHC (31.0-37.0) g/dL RDW (11.5-15.5) % Plt Count (150-450) k/uL Neutrophils % % Lymphocytes % % Monocytes % % Eosinophils % % Basophils % % Neutrophils # (1.3-7.7) k/uL Lymphocytes # (1.0-4.8) k/uL Monocytes # (0-1.0) k/uL Eosinophils # (0-0.7) k/uL Basophils # (0-0.2) k/uL Poikilocytosis Anisocytosis Macrocytosis PT 11.1 (9.0-12.0) sec INR 1.0 (<1.2) APTT 19.4 L (22.0-30.0) sec Sodium (137-145) mmol/L Potassium (3.5-5.1) mmol/L Chloride (98-107) mmol/L Carbon Dioxide (22-30) mmol/L Anion Gap mmol/L BUN (7-17) mg/dL Creatinine (0.52-1.04) mg/dL Est GFR (CKD-EPI)AfAm (>60 ml/min/1.73 sqM) Est GFR (CKD-EPI)NonAf (>60 ml/min/1.73 sqM) Glucose (74-99) mg/dL Plasma Lactic Acid Darvin (0.7-2.0) mmol/L Calcium (8.4-10.2) mg/dL Magnesium 2.6 H (1.6-2.3) mg/dL Total Bilirubin (0.2-1.3) mg/dL AST (14-36) U/L ALT (9-52) U/L Alkaline Phosphatase (38-126) U/L Total Protein (6.3-8.2) g/dL Albumin (3.5-5.0) g/dL Lipase (23-300) U/L TSH (0.465-4.680) mIU/L Urine Color Yellow Urine Appearance Clear (Clear) Urine pH 6.0 (5.0-8.0) Ur Specific Saxon 1.019 (1.001-1.035) Urine Protein 1+ H (Negative) Urine Glucose (UA) 2+ H (Negative) Urine Ketones 2+ H (Negative) Urine Blood Small H (Negative) Urine Nitrite Negative (Negative) Urine Bilirubin Negative (Negative) Urine Urobilinogen 2.0 (<2.0) mg/dL Ur Leukocyte Esterase Negative (Negative) Urine RBC 5 (0-5) /hpf Urine WBC 4 (0-5) /hpf Ur Squamous Epith Cells <1 (0-4) /hpf Urine Bacteria Rare H (None) /hpf Hyaline Casts 1 (0-2) /lpf Urine Mucus Occasional H (None) /hpf Disposition Clinical Impression: Nausea & vomiting, Metastatic breast cancer, Acute colitis Disposition: ADMITTED IP TO THIS HOSP Condition: Stable Is patient prescribed a controlled substance at d/c from ED?: No Decision to Admit Reason: Admit from EC Decision Date: 06/24/19 Decision Time: 11:18
[2019-06-24] MEDS ORDERED: MORPHINE SULFATE 4 MG/ML SYRINGE IV PRN (14:02)
[2019-06-24] MEDS ORDERED: ACETAMINOPHEN TAB 325 MG TAB PO PRN (14:02)
[2019-06-24] MEDS ORDERED: LORazepam 2 MG/ML INJ IV PRN (14:02)
--- NOTE | 2019-06-24 14:19 | P.HPIM ---
History of Present Illness H&P Date: 06/24/19 Chief Complaint: nausea and vomiting Patient is a 64-year-old female past medical history of metastatic breast cancer with metastases to the liver, and bone on Ibrance and for the last 4 years with progression on PET scan from March 2019, history of pathologic fracture of the left femur resulting in leg length discrepancy, dyslipidemia, vertigo, tinnitus, high blood pressure, and arthritis who presented to the emergency department with complaints of nausea, vomiting, and diarrhea. In the ER she underwent an extensive evaluation. On arrival she was found to be hypertensive with blood pressure 179/92. Laboratory analysis was consistent with her known pancytopenia and chronic kidney disease. CT showed moderate inflammatory wall thickening proximal sigmoid colon with adjacent mild free fluid, 6 suspicious hepatic lesions, 2 discrete lesions on the last CT head, moderate circumferential bladder wall thickening, and stable diffuse sclerotic osseous metastatic disease. She was started on IV fluids, IV antiemetics, and IV antibiotics in the emergency department. She was admitted for further monitoring. Patient seen and examined at bedside. She follows with Dr. Robin and Dr. Thurman out of [facility] for her cancer therapy. She reports that she has been on ibrance for the last 4 years. Her last doses of radiation therapy were approximately one year ago. She does have a history of a pathologic fracture to the left femur with operative repair and continued leg length discrepancy. She reports that for the last 2-3 weeks she has been having intermittent nausea and vomiting including dry heaves. She reports that every time she eats and is coming back up automatically. Last night her nausea and vomiting seemed to worsen. She started having left lower quadrant abdominal pain that she describes as burning without radiation. This has been associated with intractable diarrhea. She reports that she has not recently had any of her medications adjusted. She denies any fevers or chills, no sick contacts per her , she has had decreased appetite for the last several months. She has had a 6 pound weight loss in the last 1 month. She is having some shortness of breath after her vomiting episodes but otherwise is not having any shortness of breath. She describes overall weakness, fatigue, and essentially failure to t hrive. Review of Systems Pertinent positives and negatives as discussed in HPI, a complete review of systems was performed and all other systems are negative. Past Medical History Past Medical History: Cancer, Hearing Disorder / Deafness, Hyperlipidemia, Osteoarthritis (OA), Thyroid Disorder Additional Past Medical History / Comment(s): 2013 L side breast cancer with metastasis to L femur (fracture with surgery) and metastasis to spine-pt has had chemo IV and currently on oral chemo/she has also had radiation treatments to her back and L upper leg, thrombocytopenia, pancytopenia, neutropenia, occasional abdominal pain, hiatal hernia, sepsis with Ecoli in blood, past instances of irregular heart beat, arthritis in multiple joints, tinnitis bilateral ears, benign thyroid nodules, History of Any Multi-Drug Resistant Organisms: None Reported Past Surgical History: Breast Surgery, Cholecystectomy, Orthopedic Surgery, Tonsillectomy Additional Past Surgical History / Comment(s): LEFT BREAST BX, gail placed left femur, colonoscopy, R side port. Past Anesthesia/Blood Transfusion Reactions: No Reported Reaction Smoking Status: Former smoker Past Alcohol Use History: None Reported Additional History: Lives with her . Uses a cane at all times. - Past Family History Mother Family Medical History: Cancer, Dementia Additional Family Medical History / Comment(s): Mother had encapsulated breast cancer at the age of 83 yrs. She at the age of 91 yrs. Father Family Medical History: COPD Additional Family Medical History / Comment(s): Father at the age of 83yrs. He had emphysema. He had worked in the automotive industry. Medications and Allergies Home Medications Medication Instructions Recorded Confirmed Type Diltiazem HCl [Cardizem CD] 120 mg PO DAILY@139903/25/15 06/24/19 History Sertraline HCl [Zoloft] 100 mg PO DAILY@139903/25/15 06/24/19 History valACYclovir [Valtrex] 500 mg PO DAILY@139903/25/15 06/24/19 History Letrozole [Femara] 2.5 mg PO DAILY@139912/28/16 06/24/19 History Simvastatin [Zocor] 10 mg PO DAILY@139912/28/16 06/24/19 History Meloxicam 15 mg PO DAILY@139908/28/17 06/24/19 History Palbociclib [Ibrance] 100 mg PO DIRECTED 08/28/17 06/24/19 History Melatonin 10 mg PO HS 06/24/19 06/24/19 History oxyCODONE HCL [oxyCODONE HCL (IR)] 15 mg PO Q2H PRN 06/24/19 06/24/19 History Allergies Allergy/AdvReac Type Severity Reaction Status Date / Time latex Allergy Rash/Hives Verified 06/24/19 08:53 Sulfa (Sulfonamide Allergy Rash/Hives Verified 06/24/19 08:53 Antibiotics) Physical Exam Osteopathic Statement: *. No significant issues noted on an osteopathic struc tural exam other than those noted in the History and Physical/Consult. Vitals: Vital Signs Temp Pulse Resp BP Pulse Ox 06/24/19 11:18 85 18 149/75 99 06/24/19 09:38 20 06/24/19 09:30 157/89 06/24/19 09:00 171/99 97 06/24/19 08:30 179/92 99 06/24/19 08:16 99 F 72 20 179/92 97 Intake and Output 06/23/19 06/24/19 06/24/19 22:59 06:59 14:59 Other: Weight 65.317 kg General: Appearing, moderate distress, appears at stated age, normal weight Derm: no unusual rashes/lesions no unusual ecchymoses, warm, dry Head: atraumatic, normocephalic, symmetric Eyes: EOMI, no lid lag, anicteric sclera, pupils equal round reactive to light ENT: Nose and ears atraumatic, no thrush, no pharyngeal erythema Neck: No thyromegaly, no cervical lymphadenopathy, trachea midline, supple Mouth: no lip lesion, mucus membranes dry Cardiovascular: S1S2 reg, no murmur, positive posterior tibial pulse bilateral, no edema, capillary refill less than 2 seconds Lungs: CTA bilateral, no rhonchi, no rales , no accessory muscle use Abdominal: soft, +tender to palpation LLQ, no guarding, no appreciable organomegaly, normal bowel sounds Ext: no gross muscle atrophy, muscle strength 4 out of 5 in all 4 extremities grossly, no contractures, Neuro: CN II-XI grossly intact, light touch intact all 4 extremities, finger to nose within normal limits, Psych: Alert, oriented, appropriate affect Results CBC & Chem 7: 06/24/19 09:07 06/24/19 09:07 Labs: Abnormal Lab Results - Last 24 Hours (Table) 06/24/19 06/24/19 06/24/19 Range/Units 09:07 09:07 09:07 WBC 1.8 L (3.8-10.6) k/uL RBC 2.85 L (3.80-5.40) m/uL Hgb 10.6 L (11.4-16.0) gm/dL Hct 30.4 L (34.0-46.0) % MCV 106.8 H (80.0-100.0) fL MCH 37.3 H (25.0-35.0) pg RDW 16.0 H (11.5-15.5) % Plt Count 101 L (150-450) k/uL Lymphocytes # 0.1 L (1.0-4.8) k/uL APTT 19.4 L (22.0-30.0) sec Chloride 111 H (98-107) mmol/L BUN 20 H (7-17) mg/dL Creatinine 1.14 H (0.52-1.04) mg/dL Glucose 122 H (74-99) mg/dL Magnesium (1.6-2.3) mg/dL Total Bilirubin 1.5 H (0.2-1.3) mg/dL Lipase <10 L (23-300) U/L Urine Protein (Negative) Urine Glucose (UA) (Negative) Urine Ketones (Negative) Urine Blood (Negative) Urine Bacteria (None) /hpf Urine Mucus (None) /hpf 06/24/19 06/24/19 Range/Units 09:07 09:30 WBC (3.8-10.6) k/uL RBC (3.80-5.40) m/uL Hgb (11.4-16.0) gm/dL Hct (34.0-46.0) % MCV (80.0-100.0) fL MCH (25.0-35.0) pg RDW (11.5-15.5) % Plt Count (150-450) k/uL Lymphocytes # (1.0-4.8) k/uL APTT (22.0-30.0) sec Chloride (98-107) mmol/L BUN (7-17) mg/dL Creatinine (0.52-1.04) mg/dL Glucose (74-99) mg/dL Magnesium 2.6 H (1.6-2.3) mg/dL Total Bilirubin (0.2-1.3) mg/dL Lipase (23-300) U/L Urine Protein 1+ H (Negative) Urine Glucose (UA) 2+ H (Negative) Urine Ketones 2+ H (Negative) Urine Blood Small H (Negative) Urine Bacteria Rare H (None) /hpf Urine Mucus Occasional H (None) /hpf Chest x-ray: report reviewed CT scan - abdomen: report reviewed CT scan - pelvis: report reviewed Thrombosis Risk Factor Assmnt - DVT/VTE Prophylaxis DVT/VTE Prophylaxis: Pharmacologic Prophylaxis ordered - Choose All That Apply Any of the Below Risk Factors Present?: Yes Other Risk Factors: Yes Each Risk Factor Represents 2 Points: Age 61-74 years, Malignancy Other congenital or acquired thrombophilia - If yes, enter type in comment: No Thrombosis Risk Factor Assessment Total Risk Factor Score: 4 Thrombosis Risk Factor Assessment Level: Moderate Risk Assessment and Plan Assessment: Colitis -Infectious versus inflammatory versus medication related -Continue with Rocephin and Flagyl -IV fluids -Pain control, antiemetics -Repeat CBC in a.m. -Clear liquid diet Clinical dehydration -IV fluids -Repeat basic metabolic profile in a.m. Metastatic breast cancer with known metastases to the bone and liver and chronic pain requiring opiate medications -Continue with pain medications -Continue with Femara -Hold Ibrance until seen by oncology Dyslipidemia -Statin therapy History of arrhythmias -Continue with Cardizem Severe protein malnutrition -Supplementation -Dietary consultation The patient is admitted with an anticipated greater than 2 midnight stay for evaluation of colitis. Surrogate decision-maker: CODE STATUS:DNR/DNI DVT prophylaxis: Lovenox Discussed with: Patient, , nursing Anticipated discharge date: 2-[address]: home A total of 55 minutes was spent on the care of this complex patient more than 50% of the time was spent in counseling and care coordination.
[2019-06-24] MEDS: ONDANSETRON 4 MG/2 ML VIAL IVP PRN (14:39)
[2019-06-24] MEDS: PANTOPRAZOLE 40 MG/10 ML VIAL IVP SCH (15:38)
[2019-06-24] MEDS: SODIUM CHLORIDE 0.9% 1,000 ML IV SCH ×2 (15:38→21:02)
[2019-06-24] MEDS: valACYclovir 500 MG TAB PO SCH (15:38)
[2019-06-24] MEDS: DILTIAZEM CD 120 MG CAP.ER.24H PO SCH (15:38)
[2019-06-24] MEDS: HYDROcodone/APAP 5-325MG 1 EACH TAB PO PRN (21:53)
[2019-06-24] MEDS: MELATONIN 5 MG TABLET PO SCH (21:53)
[2019-06-25] MEDS: ONDANSETRON 4 MG/2 ML VIAL IVP PRN ×2 (02:17→10:57)
[2019-06-25] MEDS: SODIUM CHLORIDE 0.9% 1,000 ML IV SCH ×3 (05:57→22:05)
[2019-06-25] MEDS: PANTOPRAZOLE 40 MG/10 ML VIAL IVP SCH (08:31)
[2019-06-25] MEDS: ENOXAPARIN 40 MG/0.4 ML SYRINGE SQ SCH (08:31)
[2019-06-25 09:25] VITALS: BMI 25.4
[2019-06-25 10:14] LABS: Anisocytosis Slight; Basophils % (A) 1 %; Eosinophils % (A) 2 %; HCT 27.2 % (34.0-46.0); HGB 9.6 gm/dL (11.4-16.0); Lymphocytes # (A) 0.1 k/uL (1.0-4.8); Lymphocytes % (A) 11 %; MCH 38.5 pg (25.0-35.0); MCHC 35.4 g/dL (31.0-37.0); MCV 108.7 fL (80.0-100.0); Macrocytosis Marked; Mean Platelet Volume 6.4; Monocytes # (A) 0.1 k/uL (0-1.0); Monocytes % (A) 4 %; Neutrophils # (A) 0.9 k/uL (1.3-7.7); Neutrophils % (A) 81 %; Platelet Count 86 k/uL (150-450); Poikilocytosis Slight; RDW 16.3 % (11.5-15.5)
[2019-06-25 10:21] LABS: WBC 1.2 k/uL (3.8-10.6)
[2019-06-25 10:23] LABS: Calcium 7.6 mg/dL (8.4-10.2); Magnesium 2.2 mg/dL (1.6-2.3); Phosphorus 1.3 mg/dL (2.5-4.5); Potassium 3.3 mmol/L (3.5-5.1)
[2019-06-25] MEDS: HYDROcodone/APAP 5-325MG 1 EACH TAB PO PRN ×2 (10:57→22:04)
[2019-06-25 11:34] LABS: Tear Drop Cells Present
--- NOTE | 2019-06-25 12:30 | P.PN ---
Subjective Progress Note Date: 06/25/19 Principal diagnosis: vomiting and diarrhea Patient is a 64-year-old female past medical history of metastatic breast cancer with metastases to the liver, and bone on Ibrance and for the last 4 years with progression on PET scan from March 2019, history of pathologic fracture of the left femur resulting in leg length discrepancy, dyslipidemia, vertigo, tinnitus, high blood pressure, and arthritis who presented to the emergency department with complaints of nausea, vomiting, and diarrhea. In the ER she underwent an extensive evaluation. On arrival she was found to be hypertensive with blood pressure 179/92. Laboratory analysis was consistent with her known pancytopenia and chronic kidney disease. CT showed moderate inflammatory wall thickening proximal sigmoid colon with adjacent mild free fluid, 6 suspicious hepatic lesions, 2 discrete lesions on the last CT PET, moderate circumferential bladder wall thickening, and stable diffuse sclerotic osseous metastatic disease. She was started on IV fluids, IV antiemetics, and IV antibiotics in the emergency department. She was admitted for further monitoring of her colitis. Patient seen and examined at bedside. Her episodes of diarrhea overnight. Still having some nausea no active vomiting. Tolerating clear liquid diet. Feeling better than yesterday. No additional shortness of breath. Objective - Vital Signs Vital signs: Vital Signs Temp 98.1 F 06/25/19 11:25 Pulse 78 06/25/19 11:25 Resp 20 06/25/19 11:25 BP 135/74 06/25/19 11:25 Pulse Ox 98 06/25/19 11:25 Intake & Output 06/24/19 06/25/19 06/25/19 18:59 06:59 18:59 Intake Total 1979 Balance 1979 Weight 65.317 kg 65.317 kg Intake: Intake, IV Titration 1500 Amount Sodium Chloride 0.9% 1, 1500 000 ml @ 125 mls/hr IV . Q8H [facility] Rx#:[id number] Oral 480 Other: Voiding Method Toilet Toilet Toilet # Voids 1 3 - Exam General: ill appearing, mild distress, appears at stated age Derm: warm, dry Head: atraumatic, normocephalic, symmetric Eyes: EOMI, no lid lag, anicteric sclera Mouth: no lip lesion, mucus membranes moist Cardiovascular: S1S2 reg, no murmur, positive posterior tibial pulse bilateral, Lungs: decreased bs bilateral, no rhonchi, no rales , no accessory muscle use Abdominal: soft, + tender to palpation LLQ, no guarding, no appreciable organomegaly Ext: no gross muscle atrophy, no edema, no contractures Neuro: CN II-XI grossly intact, no focal neuro deficits Psych: Alert, oriented, appropriate affect - Labs CBC & Chem 7: 06/25/19 09:46 12 09:46 Labs: Abnormal Lab Results - Last 24 Hours (Table) 06/25/19 06/25/19 Range/Units 09:46 09:46 WBC 1.2 L* (3.8-10.6) k/uL RBC 2.50 L (3.80-5.40) m/uL Hgb 9.6 L (11.4-16.0) gm/dL Hct 27.2 L (34.0-46.0) % MCV 108.7 H (80.0-100.0) fL MCH 38.5 H (25.0-35.0) pg RDW 16.3 H (11.5-15.5) % Plt Count 86 L (150-450) k/uL Neutrophils # 0.9 L (1.3-7.7) k/uL Lymphocytes # 0.1 L (1.0-4.8) k/uL Macrocytosis Marked A Potassium 3.3 L (3.5-5.1) mmol/L Chloride 114 H (98-107) mmol/L Creatinine 1.05 H (0.52-1.04) mg/dL Glucose 149 H (74-99) mg/dL Calcium 7.6 L (8.4-10.2) mg/dL Phosphorus 1.3 L (2.5-4.5) mg/dL Assessment and Plan Assessment: Colitis -Continue with Rocephin and Flagyl -IV fluids -Pain control, antiemetics -Repeat CBC in a.m. -Clear liquid diet Clinical dehydration, hyperchloremic metabolic acidosis -IV fluids, improving -Repeat basic metabolic profile in a.m. Hypokalemia hypophosphatemia -Replace and recheck in a.m. Metastatic breast cancer with known metastases to the bone and liver and chronic pain requiring opiate medications -Continue with pain medications -Continue with Femara -Ibrance per oncology Dyslipidemia -Statin therapy History of arrhythmias -Continue with Cardizem Severe protein malnutrition -Supplementation -Dietary recs DVT prophylaxis: Lovenox Discussed with: Patient, nursing Anticipated discharge date: 2-[address]: home A total of 35 minutes was spent on the care of this complex patient more than 50% of the time was spent in counseling and care coordination.
[2019-06-25] MEDS: METOCLOPRAMIDE 5 MG/ML 2 ML VIAL IVP PRN (13:52)
[2019-06-25] MEDS: POTASSIUM CHLORIDE 10 MEQ in WATER FOR INJECTION 1 100ML.BAG IVPB SCH ×4 (14:07→17:58)
[2019-06-25] MEDS: metroNIDAZOLE 500 MG TAB PO SCH ×3 (15:12→22:50)
[2019-06-25] MEDS: SERTRALINE 100 MG TAB PO SCH (15:12)
[2019-06-25] MEDS: DILTIAZEM CD 120 MG CAP.ER.24H PO SCH (15:13)
[2019-06-25] MEDS: valACYclovir 500 MG TAB PO SCH (15:13)
[2019-06-25] MEDS: LETROZOLE 2.5 MG TAB PO SCH (15:13)
[2019-06-25] MEDS: ATORVASTATIN 10 MG TAB PO SCH (15:13)
[2019-06-25] MEDS: SODIUM PHOSPHATE 10 MMOL in SODIUM CHLORIDE 0.9% 100 ML IVPB SCH ×2 (20:17→22:51)
[2019-06-25 22:03] VITALS: RESP 16
[2019-06-25] MEDS: MELATONIN 5 MG TABLET PO SCH (22:04)
--- NOTE | 2019-06-26 00:08 | P.CONS ---
History of Present Illness - Reason for Consult Consult date: 06/25/19 probable diverticulitis, pancytopenia, breast cancer on treatment - History of Present Illness The patient is 64-year-old white female with a known history of metastatic breast cancer, diagnosed about 3-1/2 years ago. She has known metastatic disease with liver and bone metastases. She has been maintained on Ibrance and Femara with good disease control. She follows with Dr. Thurman in [place], as well as Dr. Caldwell. The patient was recently seen in consult in 2017 when admitted here for GI complaints unrelated to her malignancy. The patient wasn't treated this time with complains of left lower quadrant abdominal pain that started about 4-5 days ago. This has been associated with decreased appetite, and some loose bowel movements off-and-on. No obvious bleeding, fever or chills. CT scan showed evidence of inflammation related to the sigmoid colon. Distantly there also appeared to be possibility of progressive disease in the liver. PET scan report from 04/10 was reviewed, And had also shown possibility of progression in the liver and pelvic bone. Consult was therefore placed for further evaluation and recommendations Review of Systems Constitutional: Reports fatigue, Reports poor appetite, Reports weakness Eyes: denies blurred vision, denies pain Ears: deny: decreased hearing, ear discharge, earache, tinnitus Ears, nose, mouth and throat: Denies headache, Denies sore throat Cardiovascular: Reports decreased exercise tolerance Respiratory: Denies cough Gastrointestinal: Reports abdominal pain, Reports diarrhea, Reports loss of appetite Genitourinary: Denies dysuria, Denies hematuria Menstruation: Reports postmenopausal Musculoskeletal: Denies myalgias Integumentary: Denies pruritus, Denies rash Neurological: Reports weakness Psychiatric: Denies anxiety, Denies depression Endocrine: Reports fatigue, Reports weight change Hematologic/Lymphatic: Reports as per HPI Past Medical History Past Medical History: Cancer, Hearing Disorder / Deafness, Hyperlipidemia, Osteoarthritis (OA), Thyroid Disorder Additional Past Medical History / Comment(s): 2013 L side breast cancer with metastasis to L femur (fracture with surgery) and metastasis to spine-pt has had chemo IV and currently on oral chemo/she has also had radiation treatments to her back and L upper leg, thrombocytopenia, pancytopenia, neutropenia, occasional abdominal pain, hiatal hernia, sepsis with Ecoli in blood, past instances of irregular heart beat, arthritis in multiple joints, tinnitis bilateral ears, benign thyroid nodules, History of Any Multi-Drug Resistant Organisms: None Reported Past Surgical History: Breast Surgery, Cholecystectomy, Orthopedic Surgery, Tonsillectomy Additional Past Surgical History / Comment(s): LEFT BREAST BX, gail placed left femur, colonoscopy, R side port. Past Anesthesia/Blood Transfusion Reactions: No Reported Reaction Smoking Status: Former smoker Past Alcohol Use History: None Reported - Past Family History Mother Family Medical History: Cancer, Dementia Additional Family Medical History / Comment(s): Mother had encapsulated breast cancer at the age of 83 yrs. She at the age of 91 yrs. Father Family Medical History: COPD Additional Family Medical History / Comment(s): Father at the age of 83yrs. He had emphysema. He had worked in the automotive industry. Medications and Allergies Home Medications Medication Instructions Recorded Confirmed Type Diltiazem HCl [Cardizem CD] 120 mg PO DAILY@1400 03/25/15 06/24/19 History Sertraline HCl [Zoloft] 100 mg PO DAILY@1400 03/25/15 06/24/19 History valACYclovir [Valtrex] 500 mg PO DAILY@1400 03/25/15 06/24/19 History Letrozole [Femara] 2.5 mg PO DAILY@1400 12/28/16 06/24/19 History Simvastatin [Zocor] 10 mg PO DAILY@1400 12/28/16 06/24/19 History Meloxicam 15 mg PO DAILY@1400 08/28/17 06/24/19 History Palbociclib [Ibrance] 100 mg PO DIRECTED 08/28/17 06/24/19 History Melatonin 10 mg PO HS 06/24/19 06/24/19 History oxyCODONE HCL [oxyCODONE HCL (IR)] 15 mg PO Q2H PRN 06/24/19 06/24/19 History Allergies Allergy/AdvReac Type Severity Reaction Status Date / Time latex Allergy Rash/Hives Verified 06/24/19 08:53 Sulfa (Sulfonamide Allergy Rash/Hives Verified 06/24/19 08:53 Antibiotics) Physical Exam Vitals: Vital Signs Temp Pulse Pulse Resp BP Pulse Ox 06/25/19 21:00 98 F 83 16 134/79 97 06/25/19 15:55 78 20 06/25/19 11:25 98.1 F 78 20 135/74 98 06/25/19 08:25 86 16 06/25/19 05:00 98.1 F 86 16 134/79 97 Intake and Output 06/25/19 06/25/19 06/26/19 14:59 22:59 06:59 Intake Total 1140 940 Balance 1140 940 Intake: Intake, IV Titration 900 700 Amount Sodium Chloride 0.9% 1, 900 500 000 ml @ 125 mls/hr IV . Q8H [facility] Rx#:[id number] Sodium Phosphate 10 mmol 200 In Sodium Chloride 0.9% 100 ml @ 50 mls/hr IVPB Q2H [facility] Rx#:[id number] Oral 240 240 Other: Voiding Method Toilet Toilet # Voids 2 Weight 65.317 kg - Constitutional General appearance: no acute distress - EENT Eyes: EOMI, PERRLA ENT: hearing grossly normal, normal oropharynx - Neck Neck: no lymphadenopathy Thyroid: bilateral: normal size - Respiratory Respiratory: bilateral: CTA - Cardiovascular Rhythm: regular Heart sounds: normal: S1, S2 - Gastrointestinal General gastrointestinal: normal bowel sounds, soft Localized gastrointestinal: tender: LLQ, guarding: LLQ - Neurologic Neurologic: CNII-XII intact - Musculoskeletal Musculoskeletal: strength equal bilaterally - Psychiatric Psychiatric: A&O x's 3, appropriate affect Results CBC & Chem 7: 06/25/19 09:46 06/25/19 09:46 Labs: Abnormal Lab Results - Last 24 Hours (Table) 06/25/19 06/25/19 Range/Units 09:46 09:46 WBC 1.2 L* (3.8-10.6) k/uL RBC 2.50 L (3.80-5.40) m/uL Hgb 9.6 L (11.4-16.0) gm/dL Hct 27.2 L (34.0-46.0) % MCV 108.7 H (80.0-100.0) fL MCH 38.5 H (25.0-35.0) pg RDW 16.3 H (11.5-15.5) % Plt Count 86 L (150-450) k/uL Neutrophils # 0.9 L (1.3-7.7) k/uL Lymphocytes # 0.1 L (1.0-4.8) k/uL Macrocytosis Marked A Potassium 3.3 L (3.5-5.1) mmol/L Chloride 114 H (98-107) mmol/L Creatinine 1.05 H (0.52-1.04) mg/dL Glucose 149 H (74-99) mg/dL Calcium 7.6 L (8.4-10.2) mg/dL Phosphorus 1.3 L (2.5-4.5) mg/dL Microbiology - Last 24 Hours (Table) 06/24/19 11:46 Blood Culture - Preliminary Blood No Growth after 24 hours Comments: PET scan report reviewed Chest x-ray: report reviewed CT scan - abdomen: report reviewed CT scan - pelvis: report reviewed Assessment and Plan (1) Acute colitis Narrative/Plan: The patient's clinical presentation during this admission appears to be due to diverticulitis. This seems to be unrelated to her history of breast cancer. The patient does have neutropenia on presentation, but this is chronic with ANC greater than 1000. Therefore the diverticulitis does not appear to be therapy related. Therefore defer to the admitting service for management of diverticulitis with IV fluids and antibiotics. Current Visit: Yes Status: Acute Code(s): K52.9 - NONINFECTIVE GASTROENTERITIS AND COLITIS, UNSPECIFIED SNOMED Code(s): 31789679 (2) Metastatic breast cancer Narrative/Plan: History of same as described. The patient is currently on Ibrance and Femara as noted. She had been stable on the same regimen for more than 3 years. PET scan in 04/10 had shown possibility of progression in the liver and pelvic bones. However the findings were not very prominent, and it appears that after review with her primary oncologist and radiation oncologist, the decision was to continue same regimen with repeat imaging with PET scan later this month. The patient was informed that the current CT scan seems to further support progression. Tumor markers from 02/07-04/10 had not shown a slight increase. These will be repeated. The patient will follow-up with Dr. Thurman on discharge for continued treatment of her breast cancer. Current Visit: Yes Status: Chronic Priority: Medium Code(s): C50.919 - MALIGNANT NEOPLASM OF UNSP SITE OF UNSPECIFIED FEMALE BREAST SNOMED Code(s): 519876064 (3) Pancytopenia Narrative/Plan: This is due in part to treatment effect from Ibrance, as well as effect of malignancy and acute inflammation. Currently counts are in a safe range. However due to additional effect of inflammation, counts could drop further. Therefore continue to monitor. Hold Ibrance till acute inflammation resolves and counts stabilize. In fact, given possibility of progression, it would be reasonable to continue holding it still the patient follows up with Dr. Thurman. Given acute mild inflammation will utilize growth factors if needed Current Visit: Yes Status: Acute Code(s): D61.818 - OTHER PANCYTOPENIA SNOMED Code(s): 314714967 Plan: defer to the admitting service for management of her other medical problems
[2019-06-26] MEDS: SODIUM PHOSPHATE 10 MMOL in SODIUM CHLORIDE 0.9% 100 ML IVPB SCH (01:23)
[2019-06-26] MEDS: SODIUM CHLORIDE 0.9% 1,000 ML IV SCH ×3 (05:46→19:49)
[2019-06-26] MEDS: metroNIDAZOLE 500 MG TAB PO SCH ×3 (09:28→21:42)
[2019-06-26] MEDS: PANTOPRAZOLE 40 MG/10 ML VIAL IVP SCH (09:28)
[2019-06-26] MEDS: FILGRASTIM-SNDZ 300 MCG/0.5 ML SYRINGE SQ SCH (09:30)
[2019-06-26] MEDS: SERTRALINE 100 MG TAB PO SCH (09:30)
[2019-06-26] MEDS: ATORVASTATIN 10 MG TAB PO SCH (09:30)
[2019-06-26] MEDS: ENOXAPARIN 40 MG/0.4 ML SYRINGE SQ SCH (09:30)
[2019-06-26] MEDS: DILTIAZEM CD 120 MG CAP.ER.24H PO SCH (09:31)
[2019-06-26 09:58] LABS: Anisocytosis Slight; HCT 26.7 % (34.0-46.0); HGB 9.4 gm/dL (11.4-16.0); MCH 38.2 pg (25.0-35.0); MCHC 35.1 g/dL (31.0-37.0); MCV 108.8 fL (80.0-100.0); Macrocytosis Marked; Mean Platelet Volume 6.2; Poikilocytosis Slight; RBC 2.45 m/uL (3.80-5.40); RDW 16.3 % (11.5-15.5)
[2019-06-26 10:07] LABS: Platelet Count 76 k/uL (150-450)
[2019-06-26 10:10] LABS: Albumin 3.4 g/dL (3.5-5.0); Calcium 7.5 mg/dL (8.4-10.2); Phosphorus 2.8 mg/dL (2.5-4.5); Potassium 3.2 mmol/L (3.5-5.1); Total Bilirubin 0.6 mg/dL (0.2-1.3); Total Protein 5.9 g/dL (6.3-8.2)
--- NOTE | 2019-06-26 11:01 | P.PN ---
Subjective Progress Note Date: 06/26/19 Principal diagnosis: vomiting and diarrhea Patient is a 64-year-old female past medical history of metastatic breast cancer with metastases to the liver, and bone on Ibrance and for the last 4 years with progression on PET scan from March 2019, history of pathologic fracture of the left femur resulting in leg length discrepancy, dyslipidemia, vertigo, tinnitus, high blood pressure, and arthritis who presented to the emergency department with complaints of nausea, vomiting, and diarrhea. In the ER she underwent an extensive evaluation. On arrival she was found to be hypertensive with blood pressure 179/92. Laboratory analysis was consistent with her known pancytopenia and chronic kidney disease. CT showed moderate inflammatory wall thickening proximal sigmoid colon with adjacent mild free fluid, 6 suspicious hepatic lesions, 2 discrete lesions on the last CT PET, moderate circumferential bladder wall thickening, and stable diffuse sclerotic osseous metastatic disease. She was started on IV fluids, IV antiemetics, and IV antibiotics in the emergency department. She was admitted for further monitoring of her colitis. She was seen by oncology who felt this was related to diverticulitis. She was continued on ABX. Her diarrhea was improved by 06/25. Patient seen and examined at bedside. Diarrhea is resolved, and nausea better, feeling hungry today. No pain. No shortness of breath. Talked with her radiation oncologist about prior PET scan results. Objective - Vital Signs Vital signs: Vital Signs Temp 98.2 F 06/26/19 04:58 Pulse 89 06/26/19 04:58 Resp 16 06/26/19 04:58 BP 137/85 06/26/19 04:58 Pulse Ox 98 06/26/19 04:58 Intake & Output 06/25/19 06/26/19 06/26/19 18:59 06:59 18:59 Intake Total 1140 2160 Balance 1140 2160 Weight 65.317 kg Intake: Intake, IV Titration 900 1800 Amount Sodium Chloride 0.9% 1, 900 1500 000 ml @ 125 mls/hr IV . Q8H [facility] Rx#:[id number] Sodium Phosphate 10 mmol 300 In Sodium Chloride 0.9% 100 ml @ 50 mls/hr IVPB Q2H [facility] Rx#:[id number] Oral 240 360 Other: Voiding Method Toilet Toilet # Voids 3 1 - Exam General: non toxic appearing, no distress, appears at stated age Derm: warm, dry Head: atraumatic, normocephalic, symmetric Eyes: EOMI, no lid lag, anicteric sclera Mouth: no lip lesion, mucus membranes moist Cardiovascular: S1S2 reg, no murmur, positive posterior tibial pulse bilateral, Lungs: decreased bs bilateral, no rhonchi, no rales , no accessory muscle use Abdominal: soft, nontender to palpation, no guarding, no appreciable organomegaly Ext: no gross muscle atrophy, no edema, no contractures Neuro: CN II-XI grossly intact, no focal neuro deficits Psych: Alert, oriented, appropriate affect - Labs CBC & Chem 7: 06/26/19 09:30 06/26/19 09:30 Labs: Abnormal Lab Results - Last 24 Hours (Table) 06/25/19 06/26/19 06/26/19 Range/Units 09:46 09:30 09:30 WBC 1.2 L* 1.0 L* (3.8-10.6) k/uL RBC 2.50 L 2.45 L (3.80-5.40) m/uL Hgb 9.6 L 9.4 L (11.4-16.0) gm/dL Hct 27.2 L 26.7 L (34.0-46.0) % MCV 108.7 H 108.8 H (80.0-100.0) fL MCH 38.5 H 38.2 H (25.0-35.0) pg RDW 16.3 H 16.3 H (11.5-15.5) % Plt Count 86 L 76 L (150-450) k/uL Neutrophils # 0.9 L (1.3-7.7) k/uL Lymphocytes # 0.1 L (1.0-4.8) k/uL Macrocytosis Marked A Marked A Potassium 3.2 L (3.5-5.1) mmol/L Chloride 113 H (98-107) mmol/L Carbon Dioxide 21 L (22-30) mmol/L Glucose 161 H (74-99) mg/dL Calcium 7.5 L (8.4-10.2) mg/dL Total Protein 5.9 L (6.3-8.2) g/dL Albumin 3.4 L (3.5-5.0) g/dL Microbiology - Last 24 Hours (Table) 06/24/19 11:46 Blood Culture - Preliminary Blood No Growth after 24 hours Assessment and Plan Assessment: Colitis -Continue with Rocephin and Flagyl -IV fluids -Pain control, antiemetics -Repeat CBC in a.m. -full liquid diet Clinical dehydration, hyperchloremic metabolic acidosis, improving Hypokalemia -Replace and recheck in a.m. Metastatic breast cancer with known metastases to the bone and liver and chronic pain requiring opiate medications -Continue with pain medications -Continue with Femara -Ibrance per oncology Dyslipidemia -Statin therapy History of arrhythmias -Continue with Cardizem Severe protein malnutrition -Supplementation -Dietary recs - magic cup hypophosphatemia, resolved DVT prophylaxis: Lovenox Discussed with: Patient, nursing Anticipated discharge date: in AM Anticipated discharge place: home A total of 35 minutes was spent on the care of this complex patient more than 50% of the time was spent in counseling and care coordination.
[2019-06-26] MEDS: POTASSIUM CHLORIDE 10 MEQ in WATER FOR INJECTION 1 100ML.BAG IVPB SCH ×4 (11:02→14:36)
[2019-06-26] MEDS: METOCLOPRAMIDE 5 MG/ML 2 ML VIAL IVP PRN (14:40)
[2019-06-26] MEDS: valACYclovir 500 MG TAB PO SCH ×2 (15:55→15:57)
[2019-06-26] MEDS: LETROZOLE 2.5 MG TAB PO SCH (15:58)
[2019-06-26] MEDS: HYDROcodone/APAP 5-325MG 1 EACH TAB PO PRN ×2 (16:58→21:42)
[2019-06-26 17:08] LABS: Cancer Antigen 153 36.7 U/mL (0.0-32.3)
[2019-06-26] MEDS: MELATONIN 5 MG TABLET PO SCH (21:42)
[2019-06-27] MEDS: ENOXAPARIN 40 MG/0.4 ML SYRINGE SQ SCH (08:01)
[2019-06-27 08:51] LABS: Anisocytosis Slight; HCT 27.1 % (34.0-46.0); HGB 9.2 gm/dL (11.4-16.0); MCH 37.2 pg (25.0-35.0); MCHC 33.8 g/dL (31.0-37.0); Macrocytosis Marked; Mean Platelet Volume 7.5; Poikilocytosis Slight; RBC 2.46 m/uL (3.80-5.40); RDW 16.9 % (11.5-15.5); WBC 2.3 k/uL (3.8-10.6)
[2019-06-27 08:54] LABS: Calcium 7.6 mg/dL (8.4-10.2); Magnesium 1.9 mg/dL (1.6-2.3); Phosphorus 1.8 mg/dL (2.5-4.5); Potassium 3.6 mmol/L (3.5-5.1)
[2019-06-27 08:55] LABS: Platelet Count 79 k/uL (150-450)
[2019-06-27] MEDS ORDERED: PANTOPRAZOLE 40 MG TABLET PO SCH (09:00)
--- NOTE | 2019-06-27 09:15 | CDI ---
Documentation Clarification Form Date: 06/27/2019 9:07:11 AM From: Cherelle Cheema RN, CCDS Admit Date: 06/24/2019 11:18:00 AM Patient Name: Uzma Mitchell Visit Number: [id number] ATTENTION: The Clinical Documentation Specialists (CDI) and [facility] Coding Staff appreciate your assistance in clarifying documentation. Please respond to the clarification below the line at the bottom and electronically sign. The CDI & [facility] Coding staff will review the response and follow-up if needed. Please note: Queries are made part of the Legal Health Record. If you have any questions, please contact the author of this message via ITS. Dr. María Lawrence Pancytopenia has been documented in the H&P and Progress Notes and requires further specificity. History/Risk factors: left breast cancer with mets to left femur and mets to spine, pancytopenia Clinical indicators: 06/26 Attending Progress Note: "Laboratory analysis was consistent with her known pancytopenia and chronic kidney disease." Labs: WBC 1.8/1.2/1/2.3, RBC 2.85/2.5/2.45/2.46, Hgb 10.6/9.6/9.4/9.2, platelets 101/86/76/79 Treatment: Consult: oncology Lab Monitoring AM daily Zarxio 300 cg SQ QD In your professional opinion, can you please clarify if these findings signify one of the following conditions? Pancytopenia due to chemotherapy Pancytopenia drug induced, specify drug Pancytopenia due to other, please specify Anemia, please specify etiology Thrombocytopenia, please specify etiology Other condition, please specify ____ Unable to determine (Last Revision: April 2017) Pancytopenia due to chemotherapy MTDD
[2019-06-27] MEDS: FILGRASTIM-SNDZ 300 MCG/0.5 ML SYRINGE SQ SCH (09:23)
--- NOTE | 2019-06-27 09:24 | CDI ---
Documentation Clarification Form Date: 06/27/2019 9:16:00 AM From: Cherelle Cehema RN, CCDS Admit Date: 06/24/2019 11:18:00 AM Patient Name: Uzma Mitchell Visit Number: [id number] ATTENTION: The Clinical Documentation Specialists (CDI) and [facility] Coding Staff appreciate your assistance in clarifying documentation. Please respond to the clarification below the line at the bottom and electronically sign. The CDI & [facility] Coding staff will review the response and follow-up if needed. Please note: Queries are made part of the Legal Health Record. If you have any questions, please contact the author of this message via ITS. Dr. Morel History/Risk Factors: Left breast CA with mets to the bone and liver Clinical Indicators: 06/26 Attending Progress Note: "Laboratory analysis was consistent with her known pancytopenia and chronic kidney disease." Current BUN: //01/26 CR: 1.14/1.05/1.04/.99 GFR: 51/56/57/60 06/04/19 Patients Baseline BUN/CR/GFR: /60 Treatment: IVF bolus In order to capture the severity of condition, please clarify if the condition signifies: CKD Stage 1 (GFR > 90) CKD Stage 2 (GFR 60-89) CKD Stage 3 (GFR 30-59) CKD Stage 4 (GFR 15-29) CKD Stage 5 (GFR <15) ESRD Other, please specify Unable to determine (Last Revision: October 2017) CKD Stage 3 (GFR 30-59) MTDD
[2019-06-27] MEDS: metroNIDAZOLE 500 MG TAB PO SCH (09:25)
[2019-06-27 12:30] VITALS: BP 124/63; PULSE 79; TEMP 98.2
--- NOTE | 2019-06-27 16:40 | P.PN ---
Subjective Progress Note Date: 06/27/19 Principal diagnosis: met breast cancer, on oral treatment In f/u today pt states improvement in her presenting symptoms, she is tolerating a full liquid diet, no fevers, no pain Objective - Vital Signs Vital signs: Vital Signs Temp 98.2 F 06/27/19 12:30 Pulse 79 06/27/19 12:30 Resp 16 06/27/19 12:30 BP 124/63 06/27/19 12:30 Pulse Ox 97 06/27/19 12:30 Intake & Output 06/26/19 06/27/19 06/27/19 18:59 06:59 18:59 Intake Total 240 2220 500 Balance 240 2220 500 Weight 65.317 kg Intake: Intake, IV Titration 900 50 Amount Sodium Chloride 0.9% 1, 900 000 ml @ 75 mls/hr IV . [id number] [facility] Rx#:[id number] cefTRIAXone 1 gm In 50 Sodium Chloride 0.9% 50 ml @ 100 mls/hr IVPB Q24HR [facility] Rx#:[id number] Oral 240 1320 450 Other: Voiding Method Toilet Toilet Toilet # Voids 4 1 2 - Constitutional General appearance: Present: average body habitus, cooperative, no acute distress - EENT Eyes: Present: anicteric sclerae, EOMI ENT: Present: hearing grossly normal, normal oropharynx - Respiratory Respiratory: bilateral: CTA - Cardiovascular Rhythm: regular Heart sounds: normal: S1, S2 - Peripheral edema leg Peripheral Edema: bilateral: None - Gastrointestinal General gastrointestinal: Present: normal bowel sounds, soft. Absent: absent bowel sounds, decreased bowel sounds, distended, hepatomegaly, hyperactive bowel sounds, organomegaly, rigid, scaphoid, splenomegaly, tenderness, umbilical hernia, ventral hernia - Integumentary Integumentary: Present: normal - Neurologic Neurologic: Present: CNII-XII intact - Musculoskeletal Musculoskeletal: Present: strength equal bilaterally - Psychiatric Psychiatric: Present: A&O x's 3, appropriate affect, intact judgment & insight - Labs CBC & Chem 7: 06/27/19 07:46 06/27/19 07:46 Labs: Abnormal Lab Results - Last 24 Hours (Table) 06/26/19 06/27/19 06/27/19 Range/Units 09:30 07:46 07:46 WBC 2.3 L (3.8-10.6) k/uL RBC 2.46 L (3.80-5.40) m/uL Hgb 9.2 L (11.4-16.0) gm/dL Hct 27.1 L (34.0-46.0) % MCV 110.0 H (80.0-100.0) fL MCH 37.2 H (25.0-35.0) pg RDW 16.9 H (11.5-15.5) % Plt Count 79 L (150-450) k/uL Macrocytosis Marked A Chloride 115 H (98-107) mmol/L Carbon Dioxide 20 L (22-30) mmol/L Glucose 122 H (74-99) mg/dL Calcium 7.6 L (8.4-10.2) mg/dL Phosphorus 1.8 L (2.5-4.5) mg/dL CA 15-3 Antigen 36.7 H (0.0-32.3) U/mL Microbiology - Last 24 Hours (Table) 06/24/19 11:46 Blood Culture - Preliminary Blood No Growth after 72 hours Assessment and Plan (1) Nausea & vomiting Narrative/Plan: Improved with supportive mgmt. Status: Acute Priority: High Code(s): R11.2 - NAUSEA WITH VOMITING, UNSPECIFIED SNOMED Code(s): 38333727 (2) Antineoplastic chemotherapy induced pancytopenia Narrative/Plan: Pt received GCSF with improvement in her WBC/ANC. This has been discontinued. Hgb and plt low but adequate, no transfusion Status: Acute Priority: High Code(s): D61.810 - ANTINEOPLASTIC CHEMOTHERAPY INDUCED PANCYTOPENIA SNOMED Code(s): 176823361990512 (3) Metastatic breast cancer Narrative/Plan: She will follow up with her Primary Oncologist for further instructions re: treatment. Tumor markers Ca 15.3 36.7 and Ca 27.29 66.2, decreased from labs last month. Status: Chronic Priority: Medium Code(s): C50.919 - MALIGNANT NEOPLASM OF UNSP SITE OF UNSPECIFIED FEMALE BREAST SNOMED Code(s): 506583581
--- NOTE | 2019-06-27 17:42 | P.DS ---
Providers Date of admission: 06/24/19 11:18 Expected date of discharge: 06/27/19 Attending physician: Sebas Whitney MD Consults: 06/24/19 14:04 Consult Physician Routine Consulting Provider: Reji Blanco Consult Reason/Comments: Colitis, on Ibrance Do you want consulting provider notified?: Yes Primary care physician: [facility] Course: Discharge Diagnosis: Colitis, likely acute and infectious Pancytopenia, due to chemo therapy Clinical dehydration, hyperchloremic metabolic acidosis, improving Hypokalemia, resolved Metastatic breast cancer with known metastases to the bone and liver and chronic pain requiring opiate medications Dyslipidemia History of arrhythmias Severe protein malnutrition hypophosphatemia, resolved CKD III Hospital Course: Patient is a 64-year-old female past medical history of metastatic breast cancer with metastases to the liver, and bone on Ibrance and for the last 4 years with progression on PET scan from March 2019, history of pathologic fracture of the left femur resulting in leg length discrepancy, dyslipidemia, vertigo, tinnitus, high blood pressure, and arthritis who presented to the emergency department with complaints of nausea, vomiting, and diarrhea. In the ER she underwent an extensive evaluation. On arrival she was found to be hypertensive with blood pressure 179/92. Laboratory analysis was consistent with her known pancytopenia and chronic kidney disease. CT showed moderate inflammatory wall thickening proximal sigmoid colon with adjacent mild free fluid, 6 suspicious hepatic lesions, 2 discrete lesions on the last CT PET, moderate circumferential bladder wall thickening, and stable diffuse sclerotic osseous metastatic disease. She was started on IV fluids, IV antiemetics, and IV antibiotics in the emergency department. She was admitted for further monitoring of her colitis. She was seen by oncology who felt this was related to diverticulitis. She was continued on ABX. Her diarrhea was improved by 06/25. Her diet was advanced and she tolerated this well. Her pain improved and nausea abated. She was determined stable for discharge home on 06/27. She will complete a course of Flagyl and Vantin for her acute colitis. She will follow up with her primary oncology team in 1-2 days. She will resume her home Ibrance therapy. She was also given a prescription for Zofran and Protonix. She will continue her full liquid diet for 2 more days. Patient seen and examined at bedside. Feeling well. No additional episodes of diarrhea. No nausea. Abdominal pain improved. Feeling well and wants to go home. Discussed at length dietary recommendations for the next short time period, need for follow-up, need for repeat CT PET. Patient is aware and will follow-up closely with her primary oncology team. Vital signs reviewed and stable. General: non toxic, no distress, appears at stated age Derm: warm, dry Head: atraumatic, normocephalic, symmetric Eyes: EOMI, no lid lag, anicteric sclera Mouth: no lip lesion, mucus membranes moist Cardiovascular: S1S2 reg, no murmur, positive posterior tibial pulse bilateral, Lungs: CTA bilateral, no rhonchi, no rales , no accessory muscle use Abdominal: soft, +tender to palpation LLQ, no guarding, no appreciable organomegaly Ext: no gross muscle atrophy, no edema, no contractures Neuro: CN II-XI grossly intact, no focal neuro deficits Psych: Alert, oriented, appropriate affect A total of 35 minutes of time were spent preparing this complex discharge summary . Patient Condition at Discharge: Stable Plan - Discharge Summary Discharge Rx Participant: No New Discharge Prescriptions: New metroNIDAZOLE [Flagyl] 500 mg PO TID #12 tab Pantoprazole [Protonix] 40 mg PO DAILY #30 tablet. Cefpodoxime Proxetil [Vantin] 200 mg PO Q12HR #8 tab Ondansetron Odt [Zofran Odt] 8 mg SUBLINGUAL Q8HR PRN #30 tab PRN Reason: Nausea Continue Sertraline HCl [Zoloft] 100 mg PO DAILY@1400 Diltiazem HCl [Cardizem CD] 120 mg PO DAILY@1400 valACYclovir [Valtrex] 500 mg PO DAILY@1400 Letrozole [Femara] 2.5 mg PO DAILY@1400 Simvastatin [Zocor] 10 mg PO DAILY@1400 Meloxicam 15 mg PO DAILY@1400 Palbociclib [Ibrance] 100 mg PO DIRECTED oxyCODONE HCL [oxyCODONE HCL (IR)] 15 mg PO Q2H PRN PRN Reason: Pain Melatonin 10 mg PO HS Discharge Medication List Diltiazem HCl [Cardizem CD] 120 mg PO DAILY@139903/25/15 [History] Sertraline HCl [Zoloft] 100 mg PO DAILY@139903/25/15 [History] valACYclovir [Valtrex] 500 mg PO DAILY@03/25/15 [History] Letrozole [Femara] 2.5 mg PO DAILY@1400 12/28/16 [History] Simvastatin [Zocor] 10 mg PO DAILY@1400 12/28/16 [History] Meloxicam 15 mg PO DAILY@1400 08/28/17 [History] Palbociclib [Ibrance] 100 mg PO DIRECTED 08/28/17 [History] Melatonin 10 mg PO HS 06/24/19 [History] oxyCODONE HCL [oxyCODONE HCL (IR)] 15 mg PO Q2H PRN 06/24/19 [History] Cefpodoxime Proxetil [Vantin] 200 mg PO Q12HR #8 tab 06/27/19 [Rx] Ondansetron Odt [Zofran Odt] 8 mg SUBLINGUAL Q8HR PRN #30 tab 06/27/19 [Rx] Pantoprazole [Protonix] 40 mg PO DAILY #30 tablet. 06/27/19 [Rx] metroNIDAZOLE [Flagyl] 500 mg PO TID #12 tab 06/27/19 [Rx] Follow up Appointment(s)/Referral(s): Kush Caldwell MD [Primary Care Provider] - 1-2 days (Patient to call and schedule follow up appointment the office is closed at this time. ) Leonides Thurman MD [REFERRING] - 2 Weeks (Patient to call and schedule follow up appointment. The office is closed at time of discharge.) Patient Instructions/Handouts: Metronidazole (By mouth), Cefpodoxime Proxetil (By mouth), Ondansetron (By mouth), Pantoprazole (By mouth), Diverticulitis (DC), Low Fiber Diet (DC), Full Liquid Diet (DC) Activity/Diet/Wound Care/Special Instructions: Activity: as tolerated Diet: full liquid diet for 2 days, then low fiber for 2 weeks Discharge Disposition: HOME SELF-CARE
== END 2019-06-27 15:30 | disposition home or self-care (01) | DRG 391 ==
LOC: EC 08:08 → 4MS4W 11:18 → 3NMEDONC 17:52
PROVIDERS: ADMIT Family Medicine; ATTEND Family Medicine
DX: A09 Infectious gastroenteritis and colitis, unspecified (principal); D61.810 Antineoplastic chemotherapy induced pancytopenia; E43 Unspecified severe protein-calorie malnutrition; C78.7 Secondary malignant neoplasm of liver and intrahepatic bile duct; C79.51 Secondary malignant neoplasm of bone; E87.2 Acidosis; C50.919 Malignant neoplasm of unspecified site of unspecified female breast; E78.5 Hyperlipidemia, unspecified; E83.39 Other disorders of phosphorus metabolism; E86.0 Dehydration; E87.6 Hypokalemia; G89.29 Other chronic pain; H91.90 Unspecified hearing loss, unspecified ear; K59.00 Constipation, unspecified; N18.3 Chronic kidney disease, stage 3 (moderate); R62.7 Adult failure to thrive; T45.1X5A Adverse effect of antineoplastic and immunosuppressive drugs, initial encounter; Z66 Do not resuscitate; Z79.1 Long term (current) use of non-steroidal anti-inflammatories (NSAID); Z79.811 Long term (current) use of aromatase inhibitors; Z79.891 Long term (current) use of opiate analgesic; Z79.899 Other long term (current) drug therapy; Z80.3 Family history of malignant neoplasm of breast; Z82.5 Family history of asthma and other chronic lower respiratory diseases; Z85.3 Personal history of malignant neoplasm of breast; Z87.311 Personal history of (healed) other pathological fracture; Z87.891 Personal history of nicotine dependence; Z68.25 Body mass index [BMI] 25.0-25.9, adult
CPT/HCPCS: 36415; 71046; 74177; 80048; 80053; 81001; 83605; 83690; 83735; 84100; 84443; 85025; 85027; 85610; 85730; 86300; 87040; 96361; 96374; 99285

== ENCOUNTER → 2019-08-29 | Outpatient (CLI) | payer MEDICARE ==
--- NOTE | 2019-09-02 11:33 | PE ---
Nuclear medicine PET/CT HISTORY: Bone cancer, breast carcinoma, subsequent Patient received 12.6 mCi F-18 FDG intravenously in delayed scanning was performed from the skull bas e to the mid thighs. Localization and attenuation correction CT scan was performed. Correlation to prior nuclear medicine PET/CT 04/05/2019 Neck and chest: Port-A-Cath is again seen in the right pectoral region coursing via the internal jugu lar approach into the cavoatrial junction level. There is no axillary, mediastinal, or hilar adenopat hy. There is no evident lung mass. No pleural or pericardial effusion. There is some uptake identifie d at the level of the left breast which is mild and shows a similar appearance. ABDOMEN: Multiple foci of hypermetabolic uptake are again noted within the liver and show correspondi ng areas of low attenuation on CT which have grown in the interval in the left lobe for reference lat eral segment focus measures approximately 3.2 cm where on previous exam measured 1.7 cm, additional f ocus immediately adjacent measures approximately 2.9 cm not well seen on prior exam. New focus of hyp ermetabolic uptake towards the dome the diaphragm measures 2 cm in noncontrast exam, SUV 3.8. Lateral ly and ill-defined area of increased uptake is also seen within the right lobe. More inferiorly in th e right lobe focus that shows hypermetabolic uptake on axial image 134 was not seen on prior exam and measures 1.8 cm., SUV 3.8 Previously described node in the upper abdomen immediately anterior to the aorta shows a similar appe arance and associated hypermetabolic uptake, question additional node at this level also showing hype rmetabolic uptake. There is no ascites. Bowel uptake may be physiologic. Osseous structures show scattered foci of hypermetabolic uptake corresponding with what is likely met astatic disease with sclerotic foci noted as described in previous report of CT 06/24/2019 and also mu ltiple foci within the thoracic spine. There is a lytic focus in the left bony labrum showing associa rohit hypermetabolic uptake, SUV 3.7. Sclerotic foci within the left humeral head do not show associate d uptake. Uptake is present within the left acromion with SUV 4.2 and right humeral head, SUV 3.8. Po sterior elements of the first thoracic vertebral body on the right shows a focus of increased uptake not seen on prior exam, SUV 5.7. Right third rib shows a lytic focus with associated hypermetabolic u ptake. Hypermetabolic uptake again noted in the L1 vertebral body. Transverse process of the L3 verte bral body shows hypermetabolic uptake in the right as on prior report with associated sclerosis invol ving multiple vertebral body. Right ilium also shows a component of lytic appearance with its scleros is consistent with metastatic disease. Bilateral proximal femurs also show abnormal hypermetabolic up take. IMPRESSION: Metastatic disease has progressed in the liver, and is diffuse within the skeleton.
== END | disposition home or self-care (01) ==
LOC: RADPETMAIN 13:22
PROVIDERS: ATTEND Radiology Radiation Oncology
DX: C78.7 Secondary malignant neoplasm of liver and intrahepatic bile duct (principal); C50.412 Malignant neoplasm of upper-outer quadrant of left female breast; Z79.811 Long term (current) use of aromatase inhibitors; Z92.3 Personal history of irradiation
CPT/HCPCS: 78815; A9552

== ENCOUNTER → 2020-02-13 | Outpatient (CLI) | payer MEDICARE ==
--- NOTE | 2020-02-17 09:38 | PE ---
Nuclear medicine PET/CT HISTORY: Bone cancer, breast carcinoma, subsequent Patient received 10.9 mCi F-18 FDG intravenously in delayed scanning was performed from the skull bas e to the mid thighs. Localization and attenuation correction CT scan was performed. Correlation to prior nuclear medicine PET/CT dated 08/29/2019 Chest and neck: There is a right thyroid nodule which shows hypermetabolic uptake, SUV 3.9. Right jug ular central venous catheter is present, port is in the right pectoral region, distal tip the cathete r is at the cavoatrial junction level. Bilateral hilar, subcarinal nodes show hypermetabolic uptake w hich is developed in the interval. No evident lung mass, no pleural or pericardial effusion. ABDOMEN: Multiple foci of hypermetabolic uptake are scattered within the liver which has progressed c ompared to prior exam, left lobe liver mass is increased in size, there has been an increase in size of the lesions within the liver, lesions are now more conspicuous with increased hypermetabolic uptak e, portal adenopathy has developed with associated hypermetabolic uptake. There is no ascites. Osseous structures show multiple areas of abnormal uptake to include the proximal upper and lower ext remities, the spine and pelvis, multiple sclerotic foci are scattered throughout the skeleton as on p rior exam. IMPRESSION: There has been some progression in metastatic disease as described, additional findings a spike.
== END | disposition home or self-care (01) ==
LOC: RADPETMAIN 13:47
PROVIDERS: ATTEND Radiology Radiation Oncology
DX: E04.1 Nontoxic single thyroid nodule (principal); R16.0 Hepatomegaly, not elsewhere classified; R59.9 Enlarged lymph nodes, unspecified; C50.412 Malignant neoplasm of upper-outer quadrant of left female breast; C79.51 Secondary malignant neoplasm of bone; Z79.811 Long term (current) use of aromatase inhibitors; Z92.3 Personal history of irradiation
CPT/HCPCS: 78815; A9552

== ENCOUNTER → 2020-05-21 | Outpatient (CLI) | payer MEDICARE ==
--- NOTE | 2020-05-24 17:10 | PE ---
EXAMINATION TYPE: PET CT fusion skull to thigh DATE OF EXAM: 05/21/2020 COMPARISON: 06/24/2019 CT abdomen pelvis Prior PET/CT: 02/13/2020 HISTORY: Breast cancer TECHNIQUE: Following the intravenous administration of 11.11 mCi of F-18 FDG, whole body images are performed from the skull base to the midthigh. Images are reviewed on the computer in the coronal, a xial, and sagittal planes. Reconstructed rotating images are created on independent workstation and reviewed on the computer. A localization and attenuation correction CT is performed in conjunction with the PET scan. DLP: 196.24 mGycm SCAN: Subsequent Blood glucose: 120 mg/dL Average Mediastinum SUV: 1.58 Average Liver SUV: 2.12. Normal-appearing liver tissue is somewhat difficult to identify FINDINGS: NECK: Hyperintense uptake is in the submental region. Some faint uptake is in the right thyroid bed region. This is diminished in intensity from the comparison. Some mild uptake may be in the region of the right parotid gland. SUV value 1.91. This could be inflammatory. Increased uptake is in the reg ion of the vocal cords which may be due to phonation. THORAX: There is uptake in the subcarinal lymph node with SUV value of 3.28 and left infrahilar lymph node with SUV value of 3.83. Mild uptake is in the right infrahilar lymph node is present previously with current SUV value 2.43. ABDOMEN: There are several intense areas of uptake within the liver, both left and right lobes. Examp le SUV values of 4.59 posterior mid right lobe liver and 6.16 on the lateral left lobe liver. These m ultiple hepatic lesions were present previously and may be slightly less intense in comparison. Peria ortic adenopathy may be present in the midabdomen measuring 2.16. Focal uptake in the periaortic rolly on just to the left of the vertebral body measures 2.89. Lymphadenopathy or ureter with contrast may be present. PELVIS: Some mild left iliac chain uptake is not excluded. This could be related to the ureter. This are is less intense in comparison. OSSEOUS STRUCTURES: There is increased uptake adjacent to the transverse process of the lower cervica l spine on the right. Increased signals within a lower cervical vertebra. There is increased uptake w ithin the right humeral head and within the acromion on the left. These are diminished in intensity f rom comparison. There is abnormal uptake within the bilateral hips. This is diminished from compariso n. There is uptake in the medial left issue ramus. This less focal than comparison. LOCALIZATION CT: There is somewhat heterogenous liver. Hepatic metastatic lesions well visualized on this noncontrast study. Uterus appears stable in left hemipelvis. Extensive sclerotic metastases are evident throughout the pelvis and spine. COMPARISON: Uptake within the right thyroid bed region is diminished. IMPRESSION: 1. Slight improvement of radiotracer intensity through multiple previously identified metastatic lesi ons. 2. No new foci of radiotracer are identified. 3. Hepatic metastases, osseous metastases remain well visualized.
== END | disposition home or self-care (01) ==
LOC: RADPETMAIN 11:09
PROVIDERS: ATTEND Radiology Radiation Oncology
DX: C78.7 Secondary malignant neoplasm of liver and intrahepatic bile duct (principal); C79.51 Secondary malignant neoplasm of bone; C50.412 Malignant neoplasm of upper-outer quadrant of left female breast; Z92.3 Personal history of irradiation; Z79.811 Long term (current) use of aromatase inhibitors
CPT/HCPCS: 78815; A9552

== ENCOUNTER → 2020-08-20 | Outpatient (CLI) | payer MEDICARE ==
--- NOTE | 2020-08-23 12:37 | PE ---
Nuclear medicine PET CT HISTORY: Left Breast carcinoma, subsequent Patient received 13.8 mCi F-18 FDG intravenously and delayed scanning was performed from skull base t o the mid thighs. A localization and attenuation correction CT scan was performed. Correlation to prior nuclear medicine PET/CT 05/21/2020 Chest and neck: Right thyroid gland shows hyper metabolic uptake, SUV is 2.5. Multiple pulmonary nodu les are present which are subcentimeter in size, no definitive hypermetabolic uptake, largest lesion in the right lower lobe measures approximately 1 cm, axial image 88. Dominant nodule in the left lowe r lobe measured approximately 8 mm on prior exam, measures on axial image 94 9 mm. Additional nodules have increased in size. Distribution of abnormal uptake including bilateral hilar and subcarinal nod es shows hypermetabolic uptake, left hilar region SUV 4.2, subcarinal SUV 3.7, right hilar 3.1. No si zable effusion. ABDOMEN: Multiple areas of abnormal uptake within the liver are again noted in a similar distribution , the large area in the left lobe shows SUV 6.0, peripheral right lobe mass SUV 5.9, right lobe lesio ns towards the dome SUV approximately 4.65. Similar distribution. Multiple osseous metastatic foci are again noted in a similar distribution, left ilium shows SUV 3.8, right acetabular lesion SUV 5.3, right humerus focus SUV 5.4 IMPRESSION: There has been slight interval growth of patient's lung nodules. The distribution of the previously identified abnormal uptake throughout the liver, mediastinum, bones is similar.
== END | disposition home or self-care (01) ==
LOC: RADPETMAIN 13:48
PROVIDERS: ATTEND Radiology Radiation Oncology
DX: R91.8 Other nonspecific abnormal finding of lung field (principal); C79.51 Secondary malignant neoplasm of bone; Z79.811 Long term (current) use of aromatase inhibitors; Z92.3 Personal history of irradiation; C50.412 Malignant neoplasm of upper-outer quadrant of left female breast
CPT/HCPCS: 78815; A9552